=== PATIENT | female | born 1960 | race Caucasian/White ===

== ENCOUNTER 2016-02-23 12:34 | Inpatient (IN) | payer BC ==
[~2016-02-23] VITALS: Ht 170.2 cm; Wt 70.5 kg
[~2016-02-23 12:34] MED LIST: ERTA1INJ IV; THM100 PO; TNR25 PO
[2016-02-23] MEDS ORDERED: SODIUM CHLORIDE 0.9% 1000ML 2,000 ML IV STA (13:11)
[2016-02-23] MEDS ORDERED: LEVAQUIN 750MG / 150ML D5W IV STA (13:11)
[2016-02-23] MEDS ORDERED: PIPERACILLIN/TAZOBACTAM 4.5 GM/100ML D5W IV STA (13:11)
[2016-02-23 13:32] LABS: BASO % 0.2 %; BASO ABS # 0.03 K/uL (0-0.2); EOS % 1.2 %; HEMATOCRIT 24.5 % (37-47); IG% 1.2 %; LYMPH % 7.6 %; LYMPH ABS # 0.91 K/uL (1.2-3.4); MEAN CELL VOLUME 92.5 fL (80-100); MEAN CORPUSCULAR HEMOGLOBIN 33.2 pg (25-34); MEAN CORPUSCULAR HGB CONC 35.9 g/dl (32-36); MEAN PLATELET VOLUME 9.4 fL (7.4-10.4); MONO % 7.2 %; NEUT % 82.6 %; PLATELET COUNT 158 K/uL (130-400); RED BLOOD COUNT 2.65 M/uL (4.2-5.4); WHITE BLOOD COUNT 12.02 K/uL (4.8-10.8)
--- NOTE | 2016-02-23 13:36 | DIAGNOSTIC IMAGING REPORT ---
CHEST ONE VIEW PORTABLE CLINICAL HISTORY: Evaluate Fever/Sepsis COMPARISON STUDY: 02/16/2016 FINDINGS: The cardiac and mediastinal contours remain stable. There is a right-sided PICC catheter which projects over the right axillary vein. There is interstitial thickening and nodular by basilar airspace opacities, likely inflammatory. Clinical and radiographic follow-up is recommended.[ IMPRESSION: 1. Interval development of interstitial thickening and nodular right basal airspace opacities, likely inflammatory. Clinical and radiographic follow-up is recommended 2. Presumed right-sided PICC catheter which appears positioned within the axillary vein Electronically signed by: Robinson Mora M.D. 02/23/2016 1:35 PM
[2016-02-23 13:41] LABS: ALT/SGPT 23 U/L (12-78); BLOOD UREA NITROGEN 7 mg/dl (7-18); BUN/CREATININE RATIO 7.5 (10-20); CALCIUM 9.5 mg/dl (8.5-10.1); CARBON DIOXIDE 21 mmol/L (21-32); CHLORIDE 104 mmol/L (98-107); CREATININE 0.92 mg/dl (0.60-1.20); GLUCOSE 94 mg/dl (70-99); POTASSIUM 4.5 mmol/L (3.5-5.1); SODIUM 135 mmol/L (136-145)
[2016-02-23 13:50] LABS: INR 1.7 (0.9-1.1); PARTIAL THROMBOPLASTIN RATIO 1.2; PROTHROMBIN TIME (PATIENT) 18.1 SECONDS (9.0-12.0)
[2016-02-23 13:55] LABS: COMPLETE YES; TOXIC GRANULATION 1+
[2016-02-23 13:56] LABS: URINE APPEARANCE CLEAR (CLEAR); URINE COLOR DK YELLOW; URINE NITRITE NEG (NEG); URINE PH 6.5 (4.5-7.5); URINE SPECIFIC GRAVITY 1.012 (1.000-1.030); UROBILINOGEN NEG (NEG)
[2016-02-23 13:58] LABS: MANUAL MICROSCOPIC REQUIRED? NO; REVIEW REQ? NO; URINE BILIRUBIN 1+ (NEG)
[2016-02-23 14:00] LABS: ALKALINE PHOSPHATASE 245 U/L (45-117); AST/SGOT 91 U/L (15-37)
[2016-02-23] MEDS ORDERED: ERTAPENEM 1 GM ADDVIAL IV ONE ×2 (14:15→15:00)
[2016-02-23 14:38] LABS: BENZODIAZEPINE, URINE POS (NEG); COCAINE,URINE NEG (NEG); PHENCYCLIDINE, URINE NEG (NEG)
--- NOTE | 2016-02-23 15:59 | EMERGENCY ROOM VISIT NOTE ---
History Report prepared by Ashley: Radha Daily Under the Supervision of: Jaden HusainO. First contact with patient: 13:02 Chief Complaint: LETHARGIC Stated Complaint: LETHARGIC Nursing Triage Summary: discharge yesterday from hospital with picc line, iv ivance at home for uti/sepsis, pt has etoh withdrawel and cirrhosis, jaundice, pt lethargic and confused History of Present Illness The patient is a 56 year old female who presents to the Emergency Room with complaints of worsening lethargy since yesterday. The patient was discharged from the hospital yesterday with a PICC line. She is receiving IV InVance for a UTI/sepsis. She is currently dealing with alcohol withdrawal and cirrhosis. She states that she was brought to the ED by ambulance today. Her significant other called the ambulance because the patient has become more lethargic and confused since being home. She is complaining of a non-productive cough. The patient states that she had "a low potassium at work." She denies headache, back pain, nausea, and vomiting. Source of History: patient, spouse/significant other, nursing staff Onset: yesterday Position: other (global) Quality: other (lethargy) Timing: worsening Associated Symptoms: + cough, No back pain, No headache, No nausea, No vomiting Note: Significant other noted patient to be more confused today. Review of Systems See HPI for pertinent positives & negatives. A total of 10 systems reviewed and were otherwise negative. Past Medical & Surgical Medical Problems: (1) Alcohol abuse (2) Alcohol intoxication (3) Anxiety State Nos (4) Depression (5) Hypertension Nos (6) Sepsis (7) Tobacco Use Disorder Surgical Problems: (1) S/P section Family History No pertinent history stated. Social History Smoking Status: Former Smoker Alcohol Use: heavy Marital Status: single Housing Status: lives with family Occupation Status: employed Current/Historical Medications Scheduled Atenolol (Atenolol), 0.5 TABS PO DAILY Ertapenem Sodium (Invanz), 1 GM IV DAILY Folic Acid (Folvite), 1 MG PO DAILY Thiamine HCl (Vitamin B-1), 100 MG PO DAILY Scheduled PRN Lorazepam (Lorazepam), 1 MG PO TID PRN for Anxiety Allergies Coded Allergies: Iodinated Diagnostic Agents (Unverified Allergy, Unknown, ., 02/23/16) Gabapentin (Verified Adverse Reaction, Intermediate, MOOD CHANGES, ) Physical Exam Vital Signs Date Time Temp Pulse Resp B/P Pulse Ox O2 Delivery O2 Flow Rate FiO2 02/23/16 15:01 37.7 108 23 123/70 93 Nasal Cannula 2.0 02/23/16 13:34 118 35 02/23/16 13:28 114/67 02/23/16 13:04 130 31 96 02/23/16 12:58 105/70 02/23/16 12:44 95 Nasal Cannula 2.0 02/23/16 12:42 141 02/23/16 12:40 39.4 124 15 130/79 90 Room Air 02/23/16 12:38 130/79 Physical Exam CONSTITUTIONAL/VITAL SIGNS: Reviewed / noted above. GENERAL: Ill in appearance. INTEGUMENTARY: Warm, dry, and [place]. HEAD: Normocephalic. EYES: without scleral icterus or trauma. ENT/OROPHARYNX: clear and very dry. LYMPHADENOPATHY/NECK: Is supple without lymphadenopathy or meningismus. RESPIRATORY: Lungs clear and equal. Tachypneic. CARDIOVASCULAR: Tachycardic rate and regular rhythm. GI/ABDOMEN: Soft and nontender. No organomegaly or pulsatile mass. No rebound or guarding. Normal bowel sounds. EXTREMITIES: Warm and well perfused. BACK: No CVA tenderness. NEUROLOGICAL: Intact without focal deficits. PSYCHIATRIC: normal affect. MUSCULOSKELETAL: Normally developed with good muscle tone. Medical Decision & Procedures ER Provider Diagnostic Interpretation: Radiology results as stated below per my review and radiologist interpretation: CHEST ONE VIEW PORTABLE CLINICAL HISTORY: Evaluate Fever/Sepsis COMPARISON STUDY: 02/16/2016 FINDINGS: The cardiac and mediastinal contours remain stable. There is a right-sided PICC catheter which projects over the right axillary vein. There is interstitial thickening and nodular by basilar airspace opacities, likely inflammatory. Clinical and radiographic follow-up is recommended.[ IMPRESSION: 1. Interval development of interstitial thickening and nodular right basal airspace opacities, likely inflammatory. Clinical and radiographic follow-up is recommended 2. Presumed right-sided PICC catheter which appears positioned within the axillary vein Electronically signed by: Robinson Mora M.D. 02/23/2016 1:35 PM Laboratory Results 02/23/16 12:58 Red Blood Count 2.65, Mean Corpuscular Volume 92.5, Mean Corpuscular Hemoglobin 33.2, Mean Corpuscular Hemoglobin Concent 35.9, Mean Platelet Volume 9.4, Neutrophils (%) (Auto) 82.6, Lymphocytes (%) (Auto) 7.6, Monocytes (%) (Auto) 7.2, Eosinophils (%) (Auto) 1.2, Basophils (%) (Auto) 0.2, Neutrophils # (Auto) 9.93, Lymphocytes # (Auto) 0.91, Monocytes # (Auto) 0.87, Eosinophils # (Auto) 0.14, Basophils # (Auto) 0.03 02/23/16 12:58 Test 02/23/16 12:58 02/23/16 13:25 02/23/16 13:35 02/23/16 14:05 White Blood Count 12.02 K/uL (4.8-10.8) Red Blood Count 2.65 M/uL (4.2-5.4) Hemoglobin 8.8 g/dL (12.0-16.0) Hematocrit 24.5 % (37-47) Mean Corpuscular Volume 92.5 fL (80-100) Mean Corpuscular Hemoglobin 33.2 pg (25-34) Mean Corpuscular Hemoglobin Concent 35.9 g/dl (32-36) Platelet Count 158 K/uL (130-400) Mean Platelet Volume 9.4 fL (7.4-10.4) Neutrophils (%) (Auto) 82.6 % Lymphocytes (%) (Auto) 7.6 % Monocytes (%) (Auto) 7.2 % Eosinophils (%) (Auto) 1.2 % Basophils (%) (Auto) 0.2 % Neutrophils # (Auto) 9.93 K/uL (1.4-6.5) Lymphocytes # (Auto) 0.91 K/uL (1.2-3.4) Monocytes # (Auto) 0.87 K/uL (0.11-0.59) Eosinophils # (Auto) 0.14 K/uL (0-0.5) Basophils # (Auto) 0.03 K/uL (0-0.2) RDW Standard Deviation 54.4 fL (36.4-46.3) RDW Coefficient of Variation 16.1 % (11.5-14.5) Immature Granulocyte % (Auto) 1.2 % Immature Granulocyte # (Auto) 0.14 K/uL (0.00-0.02) Toxic Granulation 1+ Prothrombin Time 18.1 SECONDS (9.0-12.0) Prothromb Time International Ratio 1.7 (0.9-1.1) Activated Partial Thromboplast Time 32.0 SECONDS (21.0-31.0) Partial Thromboplastin Ratio 1.2 Anion Gap 10.0 mmol/L (3-11) Est Creatinine Clear Calc Drug Dose 67.6 ml/min Estimated GFR () 81.2 Estimated GFR (Non- 70.1 BUN/Creatinine Ratio 7.5 (10-20) Calcium Level 9.5 mg/dl (8.5-10.1) Total Bilirubin 7.9 mg/dl (0.2-1) Direct Bilirubin 5.7 mg/dl (0-0.2) Aspartate Amino Transf (AST/SGOT) 91 U/L (15-37) Alanine Aminotransferase (ALT/SGPT) 23 U/L (12-78) Alkaline Phosphatase 245 U/L (45-117) Total Creatine Kinase 22 U/L (26-192) Creatine Kinase MB < 0.5 ng/ml (0.5-3.6) Creatine Kinase MB Ratio (0-3.0) Troponin I < 0.015 ng/ml (0-0.045) Total Protein 5.9 gm/dl (6.4-8.2) Albumin 2.5 gm/dl (3.4-5.0) Lipase 771 U/L (73-393) Thyroid Stimulating Hormone (TSH) 1.530 uIu/ml (0.300-4.500) Acetaminophen Level < 2 ug/ml (10-30) Influenza Type A Antigen Neg for Influ A (NEG) Influenza Type B Antigen Neg for Influ B (NEG) Urine Color DK YELLOW Urine Appearance CLEAR (CLEAR) Urine pH 6.5 (4.5-7.5) Urine Specific [place] 1.012 (1.000-1.030) Urine Protein NEG (NEG) Urine Glucose (UA) NEG (NEG) Urine Ketones NEG (NEG) Urine Occult Blood NEG (NEG) Urine Nitrite NEG (NEG) Urine Bilirubin 1+ (NEG) Urine Urobilinogen NEG (NEG) Urine Leukocyte Esterase TRACE (NEG) Urine WBC (Auto) 1-5 /hpf (0-5) Urine RBC (Auto) 0-4 /hpf (0-4) Urine Hyaline Casts (Auto) 1-5 /lpf (0-5) Urine Epithelial Cells (Auto) 10-20 /lpf (0-5) Urine Bacteria (Auto) NEG (NEG) Urine Opiates Screen NEG (NEG) Urine Methadone, Qualitative NEG (NEG) Urine Barbiturates NEG (NEG) Urine Phencyclidine (PCP) Level NEG (NEG) Ur Amphetamine/Methamphetamine NEG (NEG) MDMA (Ecstasy) Screen NEG (NEG) Urine Benzodiazepines Screen POS (NEG) Urine Cocaine Metabolite NEG (NEG) Urine Marijuana (THC) NEG (NEG) Lactic Acid Level 1.1 mmol/L (0.4-2.0) Ammonia 28.0 umol/L (11-32) Ethyl Alcohol mg/dL < 3.0 mg/dl (0-3) Laboratory results as stated above per my review. Medications Administered Medications (Trade) Dose Ordered Sig/Britany Route Start Time Stop Time Status Last Admin Dose Admin Sodium Chloride (Nss 1000ml) 2,000 ml @ 999 mls/hr Q2H1M STAT IV 02/23/16 13:11 02/23/16 15:11 DC 02/23/16 13:42 999 MLS/HR Levofloxacin (Levaquin / D5w) 750 mg NOW STAT IV 02/23/16 13:11 02/23/16 13:16 DC 02/23/16 14:08 750 MG Piperacillin Sod/ Tazobactam Sod (Zosyn Iv) 4.5 gm NOW STAT IV 02/23/16 13:11 02/23/16 13:16 DC 02/23/16 14:08 4.5 GM ECG Indication: weakness Rate (beats per minute): 134 Rhythm: sinus tachycardia Findings: no acute ischemic change, no ectopy ED Course 1304: Previous medical records were reviewed. The patient was evaluated in room B12B. A complete history and physical examination was performed. 1311: Zosyn 4.5 gm IV, Levofloxacin 750 mg IV, NSS 2000 ml @ 999 mls/hr IV 1500: Ertapenem 1 gm IV 1513: I spoke with Rubia Marrufo PA-C. We discussed the patients results and treatment plan. [facility] 1521: I reassessed the patient at this time. She is resting comfortably. I discussed the results and treatment plan with the patient. I answered all pertaining questions that she had. She expressed understanding and verbalized agreement. Medical Decision Differential diagnosis: Etiologies such as sepsis, UTI, pneumonia, metabolic, electrolyte abnormalities , cardiac sources, intracerebral event, toxicologic, neurologic, as well as others were entertained. This is a 56-year-old ill-appearing female who presents to the ED after being discharged yesterday. The patient presents tachycardic with a heart rate of 140. Her fever is 39.4. The patient was discharged with a PICC line yesterday for sepsis from a urinary tract infection. She is to be taking Invanz daily. The patient was brought to the hospital by an old. No one presented with the patient. Her exam findings reveal revealed dry mucous membranes. She was tachycardic and somewhat tachypneic as well. Chest x-ray reveals a right-sided pneumonia. Hemoglobin is at baseline at 8.8. White blood cell count was 12. INR is 1.7 and bilirubin is elevated at 7.9. This is chronic related to chronic liver disease. Troponin is negative. Flu swab was negative. Urine did not show infection. EKG showed a sinus tach at a rate of 134. The patient was told the results. She was started on broad-spectrum antibiotics as noted above. She was given 2 L of normal saline IV. She'll be seen by the hospitalist for further inpatient care and evaluation. Consults Time Called: 1511 Consulting Physician: Rubia Marrufo PA-C Returned Call: 1513 I spoke with Rubia Marrufo PA-C. We discussed the patients results and treatment plan. [facility]. Impression Primary Impression: Pneumonia Additional Impressions: Sepsis, Anemia, Hyperbilirubinemia, Coagulopathy Critical Care I have personally spent greater than 35 minutes of critical care time in the direct management of this patient. This includes bedside care, interpretation of diagnostic studies, and testing, discussion with consultants, patient, and family members, and other required patient management activities. This 35 minutes is in excess of all separately billable procedures. Scribe Attestation The scribe's documentation has been prepared under my direction and personally reviewed by me in its entirety. I confirm that the note above accurately reflects all work, treatment, procedures, and medical decision making performed by me. Departure Information Dispostion Being Evaluated By Hospitalist Referrals Kai Sarmiento D.O. (PCP) Patient Instructions A Signature Page, My [facility]
--- NOTE | 2016-02-23 16:31 | History and Physical ---
History & Physical Date & Time of Service: Feb 23, 2016 at 15:59 Chief Complaint: Lethargic Primary Care Physician: Kai Sarmiento D.ORosalie History of Present Illness Source: patient, clinic records, hospital records Patient seen and examined. 56 year old female with PMHx of alcohol abuse, chronic liver disease, anziety, depression and other problems listed below presents to the ED with AMS/lethargy. History is some what unclear. Patient was discharged from this hospital yesterday after being admitted for alcohol withdrawal and sepsis/UTI. Urine culture grew E.coli ESBL and ID was consulted and patient was discharged on Invanz IV as an outpatient for 14 days. Alcohol withdrawal protocol was followed and after patient was deemed stable she was discharged home yesterday. Per ED physician patient was apparently lethargic and altered this AM and family called EMS to bring her to the ED. Patient reports that she has just been sleeping since discharge. She states that she fell in the bath tub this morning when she tripped over a roll of toilet paper. She denies hitting her head. She reports she has been coughing more than usual. She denies fevers, chills, chest pain, SOB, nausea, vomiting, diarrhea, dysuria , calf pain and edema. She denies that she started drinking alcohol again. In the ED patient is tachycardic and febrile. BP is stable. WBC count is 12K, LFTs have worsened since yesterday.. CXR shows possible pneumonia. Cultures were drawn and patient was started on Levaquin and Zosyn. She will be admitted for further workup and treatment. Past Medical/Surgical History Medical Problems: (1) Alcohol abuse Status: Chronic (2) Alcohol intoxication Status: Resolved (3) Depression Status: Chronic (4) HTN (hypertension) Status: Chronic (5) Tobacco abuse Status: Chronic Surgical Problems: (1) H/O colonoscopy Status: Chronic (2) History of esophagogastroduodenoscopy (EGD) Status: Chronic (3) Hx of tonsillectomy Status: Chronic (4) S/P section Status: Resolved Family History FH: leukemia Hypertension Social History Smoking Status: Former Smoker Alcohol Use: Alcohol abuse - recent abstenince since 02/11 Marital Status: single Occupational Status: employed Multi-Drug Resistant Organisms History of MDRO: No Allergies Coded Allergies: Iodinated Diagnostic Agents (Unverified Allergy, Unknown, ., 02/23/16) Gabapentin (Verified Adverse Reaction, Intermediate, MOOD CHANGES, ) Home Medications Scheduled Atenolol (Atenolol), 0.5 TABS PO DAILY Ertapenem Sodium (Invanz), 1 GM IV DAILY Folic Acid (Folvite), 1 MG PO DAILY Thiamine HCl (Vitamin B-1), 100 MG PO DAILY Scheduled PRN Lorazepam (Lorazepam), 1 MG PO TID PRN for Anxiety Review of Systems See above for pertinent positives & negatives. A total of 10 systems reviewed and were otherwise negative. Physical Exam Vital Signs Date Time Temp Pulse Resp B/P Pulse Ox O2 Delivery O2 Flow Rate FiO2 02/23/16 15:01 37.7 108 23 123/70 93 Nasal Cannula 2.0 02/23/16 13:34 118 35 02/23/16 13:28 114/67 02/23/16 13:04 130 31 96 02/23/16 12:58 105/70 02/23/16 12:44 95 Nasal Cannula 2.0 02/23/16 12:42 141 02/23/16 12:40 39.4 124 15 130/79 90 Room Air 02/23/16 12:38 130/79 General Appearance: + pertinent finding (Chronically ill appearing 56 year old female lying in bed in NAD ) Head: normocephalic, atraumatic Eyes: EOMI, + pertinent finding (scleral icterus ) ENT: hearing grossly normal, pharynx normal Neck: supple, no JVD Respiratory/Chest: chest non-tender, no respiratory distress, no accessory muscle use, + crackles (BL bases ) Cardiovascular: no edema, no gallop, no JVD, no murmur, normal peripheral pulses, + tachycardia (low 100s, regular ) Abdomen/GI: normal bowel sounds, non tender, soft, + distended Back: normal inspection, no muscle spasm Extremities/Musculoskelatal: no calf tenderness, normal capillary refill, normal range of motion Neurologic/Psych: + pertinent finding (Alert, oriented x3, no asterixis, strength and sensation equal and intact in all extremities ) Skin: normal color, warm/dry, no rash Lymphatic: no adenopathy Diagnostics Laboratory Results Results Past 24 Hours Test 02/23/16 12:58 02/23/16 13:25 12/28/16 13:35 02/23/16 14:05 Range/Units White Blood Count 12.02 4.8-10.8 K/uL Red Blood Count 2.65 4.2-5.4 M/uL Hemoglobin 8.8 12.0-16.0 g/dL Hematocrit 24.5 37-47 % Mean Corpuscular Volume 92.5 80-100 fL Mean Corpuscular Hemoglobin 33.2 25-34 pg Mean Corpuscular Hemoglobin Concent 35.9 32-36 g/dl Platelet Count 158 130-400 K/uL Mean Platelet Volume 9.4 7.4-10.4 fL Neutrophils (%) (Auto) 82.6 % Lymphocytes (%) (Auto) 7.6 % Monocytes (%) (Auto) 7.2 % Eosinophils (%) (Auto) 1.2 % Basophils (%) (Auto) 0.2 % Neutrophils # (Auto) 9.93 1.4-6.5 K/uL Lymphocytes # (Auto) 0.91 1.2-3.4 K/uL Monocytes # (Auto) 0.87 0.11-0.59 K/uL Eosinophils # (Auto) 0.14 0-0.5 K/uL Basophils # (Auto) 0.03 0-0.2 K/uL RDW Standard Deviation 54.4 36.4-46.3 fL RDW Coefficient of Variation 16.1 11.5-14.5 % Immature Granulocyte % (Auto) 1.2 % Immature Granulocyte # (Auto) 0.14 0.00-0.02 K/uL Toxic Granulation 1+ Prothrombin Time 18.1 9.0-12.0 SECONDS Prothromb Time International Ratio 1.7 0.9-1.1 Activated Partial Thromboplast Time 32.0 21.0-31.0 SECONDS Partial Thromboplastin Ratio 1.2 Sodium Level 135 136-145 mmol/L Potassium Level 4.5 3.5-5.1 mmol/L Chloride Level 104 98-107 mmol/L Carbon Dioxide Level 21 21-32 mmol/L Anion Gap 10.0 3-11 mmol/L Blood Urea Nitrogen 7 7-18 mg/dl Creatinine 0.92 0.60-1.20 mg/dl Est Creatinine Clear Calc Drug Dose 67.6 ml/min Estimated GFR () 81.2 Estimated GFR (Non- 70.1 BUN/Creatinine Ratio 7.5 10-20 Random Glucose 94 70-99 mg/dl Calcium Level 9.5 8.5-10.1 mg/dl Total Bilirubin 7.9 0.2-1 mg/dl Direct Bilirubin 5.7 0-0.2 mg/dl Aspartate Amino Transf (AST/SGOT) 91 15-37 U/L Alanine Aminotransferase (ALT/SGPT) 23 12-78 U/L Alkaline Phosphatase 245 45-117 U/L Total Creatine Kinase 22 26-192 U/L Creatine Kinase MB < 0.5 0.5-3.6 ng/ml Creatine Kinase MB Ratio 0-3.0 Troponin I < 0.015 0-0.045 ng/ml Total Protein 5.9 6.4-8.2 gm/dl Albumin 2.5 3.4-5.0 gm/dl Lipase 771 73-393 U/L Thyroid Stimulating Hormone (TSH) 1.530 0.300-4.500 uIu/ml Acetaminophen Level < 2 10-30 ug/ml Influenza Type A Antigen Neg for Influ A NEG Influenza Type B Antigen Neg for Influ B NEG Urine Color DK YELLOW Urine Appearance CLEAR CLEAR Urine pH 6.5 4.5-7.5 Urine Specific [place] 1.012 1.000-1.030 Urine Protein NEG NEG Urine Glucose (UA) NEG NEG Urine Ketones NEG NEG Urine Occult Blood NEG NEG Urine Nitrite NEG NEG Urine Bilirubin 1+ NEG Urine Urobilinogen NEG NEG Urine Leukocyte Esterase TRACE NEG Urine WBC (Auto) 1-5 0-5 /hpf Urine RBC (Auto) 0-4 0-4 /hpf Urine Hyaline Casts (Auto) 1-5 0-5 /lpf Urine Epithelial Cells (Auto) 10-20 0-5 /lpf Urine Bacteria (Auto) NEG NEG Urine Opiates Screen NEG NEG Urine Methadone, Qualitative NEG NEG Urine Barbiturates NEG NEG Urine Phencyclidine (PCP) Level NEG NEG Ur Amphetamine/Methamphetamine NEG NEG MDMA (Ecstasy) Screen NEG NEG Urine Benzodiazepines Screen POS NEG Urine Cocaine Metabolite NEG NEG Urine Marijuana (THC) NEG NEG Lactic Acid Level 1.1 0.4-2.0 mmol/L Ammonia 28.0 11-32 umol/L Ethyl Alcohol mg/dL < 3.0 0-3 mg/dl Microbiology Results 12/28/16 Blood Culture, Received Pending 02/23/16 Blood Culture, Received Pending 02/23/16 Urine Culture, Received Pending Diagnostic Radiology CXR Per radiologist read: IMPRESSION: 1. Interval development of interstitial thickening and nodular right basal airspace opacities, likely inflammatory. Clinical and radiographic follow-up is recommended 2. Presumed right-sided PICC catheter which appears positioned within the axillary vein EKG Sinus Tachycardia 134 BPM, QTc 409 Impression Assessment and Plan 56 year old female discharged yesterday after treatment for sepsis secondary to UTI and alcohol withdrawal presents to the ED with altered mental status SEPSIS -Admit to tele -Presents with: tachycardia, leukocytosis, fever, BP stable -Likely source : CXR: shows possible pneumonia, ? aspiration pneumonia -Blood cultures, sputum cultures pending -Broad spectrum coverage with Levaquin and Zosyn -ID consulted for further recommendations -keep npo -Repeat CXR in AM -IVF hydration -CBC, PRP, Mg in AM ENCEPHALOPATHY -Metabolic Versus Hepatic -Known severe liver disease, also presenting with sepsis -Reports fall CT head, C-spine to r/o intracranial abnormalities -Ammonia level 28 -LFTs slightly worse than yesterday -will keep npo -IVF hydration URINARY TRACT INFECTION -urine grew E.coli ESBL -ID was consulted -Patient on 14 day course of Invanz, continue -repeat culture drawn ALCOHOL ABUSE -Alcohol level normal, denies alcohol use since between discharge yesterday and arrival today -IV thiamine, Folate -Continue Ativan -Monitor in tele for withdrawal symptoms CHRONIC LIVER DISEASE/CIRRHOSIS -Alcoholic liver disease -MELD score is 19 with Maddrey score of 25 -LFTs slightly worse than yesterday Total Bili 7.9, Direct Bili 5.7, AST 91, ALT 23, Alk Phos 245 -GI consult placed, input appreciated ANEMIA/THROMBOCYTOPENIA/COAGULOPATHY -Hgb stable at 8.8 -Platelet count improved to 158 today -INR 1.7 -likely related to liver disease/alcohol abuse -no signs of active bleeding -Avoid anticoagulation/NSAIDs -follow coags, CBC ELEVATED LIPASE -CT on previous admission was unchanged from previous -Lipase 700 today, was 1600 yesterday -was evaluated by GI yesterday and d/t lack of symptoms and alcohol abuse no intervention was recommended -repeat in AM CODE STATUS: FULL CODE DVT PROPHYLAXIS: SCDs RE: anemia/thrombocytopenia DISPO:In my clinical judgment this beneficiary meets acute admission criteria, established by [facility], that includes being hospitalized through two midnights. Patient seen in collaboration with Dr. Ramos ATTENDING NOTE : pt seen and examined , 56 yo F hx of alcoholic cirrhosis , recent admission with sepsis , ESBL UTI discharged home yesterday with IV Invanz pt apparent had a fall at home with worsening of confusion Cxray shows possible pneumonia ,concern for aspiration P/E: gen : chronically ill appearing female, lethargic HEENT; deeply icteric sclera , dry oral mucosa lungs: coarse breath sound with basilar rales abdomen ; + ascites Ext ; no rash neuro; confused A/P : Sepsis : due to aspiration pneumonia already on treatment for ESBL E .coli sepsis with gram negative bacteremia admission to tele IV abx -added Levaquin /Zosyn for pneumonia follow blood culture ID eval requested repeat Cxray in AM Confusion /metabolic encephalopathy : due to sepsis has underlying advanced liver disease hyper bilirubinemia -leading to hepatic encephalopathy ammonia 28 CT head negative for acute change neuro checks GI eval requested Full code Level of Care Telemetry Resuscitation Status FULL RESUSCITATION VTE Prophylaxis VTE Risk Assessment Done? Y/N: Yes Risk Level: Moderate Given or contraindicated: T.E.D. Stockings, SCD's
[2016-02-23] MEDS ORDERED: LEVOFLOXACIN / D5W 750 MG in PREMIXED IN D5W 100 ML IV SCH (16:45)
[2016-02-23] MEDS ORDERED: SODIUM CHLORIDE 0.9% 1000ML 1,000 ML IV SCH (16:45)
[2016-02-23 17:13] VITALS: BP 115/67; PULSE 98; TEMP 37.7; O2SAT 98; Ht 170.2 cm; Wt 70.5 kg
[2016-02-23] MEDS ORDERED: PIPERACILL/TAZOBAC CONSULT ACTIVE PRN (18:30)
[2016-02-23] MEDS ORDERED: LORAZEPAM INJ 1 MG in SYRINGE 0.5 ML IV PRN (18:30)
[2016-02-23] MEDS: PIPERACILL/TAZOBAC IV 3.375 GM in DEXTROSE 5% 100ML 100 ML IV SCH (19:24)
[2016-02-23 20:01] VITALS: BP 112/65; PULSE 97; TEMP 37.6; O2SAT 98
[2016-02-23 20:20] VITALS: O2SAT 98
--- NOTE | 2016-02-23 20:55 | DIAGNOSTIC IMAGING REPORT ---
HEAD CT NONCONTRAST CT DOSE: 954.10 mGy.cm HISTORY: Trauma fall, AMS TECHNIQUE: Multiaxial CT images of the head were performed without the use of intravenous contrast. Comparison: 02/16/2016 Findings: Small mucous retention cyst base left maxillary sinus. Sinuses otherwise are clear. The calvarium and skull base are intact. The ventricles and sulci are within normal limits. There is no mass, hematoma, midline shift, or acute infarct. Mild chronic small vessel change of aging. Impression: No acute intracranial abnormality. No change from the prior study. Electronically signed by: Ajay Randall M.D. 02/23/2016 8:54 PM
--- NOTE | 2016-02-23 20:59 | DIAGNOSTIC IMAGING REPORT ---
CERVICAL SPINE CT CT DOSE: HISTORY: Trauma Fall TECHNIQUE: Multiaxial CT images of the cervical spine were performed and reformatted in the sagittal and coronal plane without the use of contrast. COMPARISON: None. FINDINGS: No fractures. No subluxation. Prevertebral soft tissues and the C1-C2 interval are intact. No pneumothorax. Moderate degenerative intervertebral this change C5-C6. Mild straightening of the normal cervical curvature. IMPRESSION: No fractures within the cervical spine. Mild degenerative change. Electronically signed by: Ajay Randall M.D. 02/23/2016 8:58 PM
[2016-02-23] MEDS: LORAZEPAM 2 MG/ML 1 ML VIAL IV PRN (22:55)
[2016-02-23 23:30] VITALS: BP 140/61; PULSE 116; TEMP 38; O2SAT 94
[2016-02-24] VITALS (10 sets, daily range): BP systolic 97–124; BP diastolic 51–65; PULSE 68–134; TEMP 36.6–38.8; O2SAT 89–97
[2016-02-24] MEDS ORDERED: ACETAMINOPHEN 325 MG TAB ONE (02:22)
[2016-02-24 03:14] LABS: ALLEN TEST POS (POS); ARTERIAL BLD GAS O2 SATURATION 91.9 % (90-95); ARTERIAL BLOOD GAS BASE EXCESS -2.8 mEq/L (-9-1.8); ARTERIAL BLOOD GAS HCO3 20 mmol/L (19-24); ARTERIAL BLOOD GAS PO2 62 mmHg (80-95); ARTERIAL BLOOD GAS pH 7.51 (7.35-7.45); O2 ADMINISTRATION 3 L O2
[2016-02-24 03:21] LABS: HEMATOCRIT 22.5 % (37-47); MEAN CELL VOLUME 91.5 fL (80-100); MEAN CORPUSCULAR HEMOGLOBIN 32.9 pg (25-34); MEAN PLATELET VOLUME 9.5 fL (7.4-10.4); PLATELET COUNT 127 K/uL (130-400); RED BLOOD COUNT 2.46 M/uL (4.2-5.4)
[2016-02-24 03:24] LABS: INR 1.8 (0.9-1.1); PROTHROMBIN TIME (PATIENT) 19.8 SECONDS (9.0-12.0)
[2016-02-24 03:30] LABS: BUN/CREATININE RATIO 8.2 (10-20); CALCIUM 8.3 mg/dl (8.5-10.1); CREATININE 0.94 mg/dl (0.60-1.20); MAGNESIUM 1.3 mg/dl (1.8-2.4); POTASSIUM 4.2 mmol/L (3.5-5.1)
[2016-02-24] MEDS ORDERED: NURSING VERBAL MED ORDER ONE ×2 (03:30→04:00)
[2016-02-24] MEDS ORDERED: FUROSEMIDE 40 MG/4 ML VIAL ONE (03:31)
[2016-02-24] MEDS ORDERED: METHYLPREDNISOLONE 20 MG in SYRINGE 0 ML IV STA (04:04)
[2016-02-24] MEDS ORDERED: LEVALBUTEROL 1.25MG/3ML NEB INH STA (04:40)
[2016-02-24] MEDS: MAGNESIUM SULFATE 1GM / D5W 1 GM in PREMIXED IN D5W 100 ML IV SCH ×3 (04:41→06:35)
[2016-02-24] MEDS: PIPERACILL/TAZOBAC IV 3.375 GM in DEXTROSE 5% 100ML 100 ML IV SCH (05:01)
[2016-02-24] MEDS: LEVALBUTEROL 1.25MG/3ML NEB INH SCH ×3 (07:20→19:32)
--- NOTE | 2016-02-24 08:54 | DIAGNOSTIC IMAGING REPORT ---
CHEST ONE VIEW PORTABLE CLINICAL HISTORY: pneumonia pneumonitis COMPARISON STUDY: 02/24/2016 FINDINGS: Focal bibasilar parenchymal infiltrates. Trace pleural fluid both lung bases. Underlying component of pulmonary vascular congestion. IMPRESSION: Small parenchymal infiltrate both lung bases combined with small bilateral pleural effusions. Underlying component of pulmonary vascular congestion Electronically signed by: Ajay Randall M.D. 02/24/2016 8:53 AM
--- NOTE | 2016-02-24 09:00 | DIAGNOSTIC IMAGING REPORT ---
SINGLE VIEW CHEST CLINICAL HISTORY: Wheezing. FINDINGS: An AP, portable, upright chest radiograph is compared to study dated 02/23/2016. The examination is significant degraded by portable technique, motion artifact, and patient rotation. The heart appears mildly enlarged and there is atherosclerotic calcification of the thoracic aorta. Bibasilar airspace opacities are identified.. No pneumothorax is seen. The skeletal structures are osteopenic. The bony thorax is grossly intact. IMPRESSION: 1. Severely motion degraded examination. 2. There are bibasilar airspace opacities. This could represent atelectasis versus bibasilar pneumonia. Pleural effusions are not excluded. A repeat examination with improved technique is recommended with the patient is clinically able. Electronically signed by: Michael Rubio M.D. 02/24/2016 8:58 AM
[2016-02-24] MEDS: THIAMINE HCL INJ 100 MG in SYRINGE 9 ML IV SCH (09:32)
[2016-02-24] MEDS: FoLIC ACID INJ 1 MG in SYRINGE 9.8 ML IV SCH (09:32)
--- NOTE | 2016-02-24 11:14 | Medical Consult ---
Consultation Date of Consultation: Feb 24, 2016. Attending Physician: Mayuri Ramos M.D. Reason for Consultation: Sepsis History of Present Illness Patient is a 56 yo female with history of alcohol abuse, chronic liver disease, anxiety & depression, and most recently ESBL producing E. Coli UTI. She was discharged multiple days ago with IV ertapenem at home. She states that she was "unable" to do this at home because she suffered a fall in her bathtub and "broke her back". She was noted to be lethargic and have altered mental status at home following her fall, so her family called EMS and she was evaluated in the ED. Since admission, the patient states that she has been coughing more than normal but has not had any SOB, diarrhea, nausea, or vomiting. On admission , the patient's WBC count was 12.02. Her lipase was 771 but this is down from previous admission. Alk phos was 245, and Bilirubin was severely elevated. Chest X-ray on admission showed right sided PICC line, and development of interstitial thickening and nodular airspace opacity of the right lower lung. She was started on IV Ertapenem, Levaquin, and Zosyn on admission. The patient' s previous records were reviewed and it was also noted that she had a positive C. Diff toxin on 02/20/15. 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 She is currently on contact precautions. Past Medical/Surgical History Medical Problems: (1) Anemia Status: Acute (2) Bleeding from the nose Status: Acute (3) Coagulopathy Status: Acute (4) Confusion Status: Acute (5) Elevated LFTs Status: Acute (6) Hyperbilirubinemia Status: Acute (7) Hypokalemia Status: Acute (8) Hyponatremia Status: Acute (9) Jaundice Status: Acute (10) Pancreatitis Status: Acute (11) Pneumonia Status: Acute Medical Problems: (1) Alcohol abuse (2) Alcohol intoxication (3) Anxiety State Nos (4) Depression (5) Encephalopathy (6) HTN (hypertension) (7) Hypertension Nos (8) Sepsis (9) Tobacco abuse (10) Tobacco Use Disorder Surgical Problems: (1) H/O colonoscopy (2) History of esophagogastroduodenoscopy (EGD) (3) Hx of tonsillectomy (4) S/P section Family History FH: leukemia Hypertension Noncontributory Social History Smoking Status: Former Smoker Alcohol Use: Alcohol abuse - recent abstenince since 02/11 Marital Status: single Housing Status: lives with family Occupation Status: employed Allergies Coded Allergies: Iodinated Diagnostic Agents (Unverified Allergy, Unknown, ., 02/23/16) Gabapentin (Verified Adverse Reaction, Intermediate, MOOD CHANGES, ) Home Medications Reported Home Medications Medications Dose Route/Sig Max Daily Dose Days Date Category Atenolol 25 Mg Tab 0.5 Tabs PO DAILY 30 02/22/16 Rx Invanz (Ertapenem Sodium) 1 Gm Inj 1 Gm IV DAILY 10 02/22/16 Rx Vitamin B-1 (Thiamine HCl) 100 Mg Tab 100 Mg PO DAILY 30 02/22/16 Rx Lorazepam 1 Mg Tab 1 Mg PO TID PRN 02/16/16 Reported Folvite (Folic Acid) 1 Mg Tab 1 Mg PO DAILY 07/14/14 Reported Current Inpatient Medications Current Inpatient Medications Medications (Trade) Dose Ordered Sig/Britany Route Start Time Stop Time Status Last Admin Dose Admin Ertapenem 1 gm/ Sodium Chloride 50 ml @ 120 mls/hr Q24H IV 02/24/16 16:00 03/04/16 15:59 Piperacillin Sod/ Tazobactam Sod/ Dextrose (Zosyn Iv/D5 100ml) 115 ml @ 28.75 mls/ hr Q8H IV 02/23/16 20:00 03/04/16 19:59 02/24/16 05:01 28.75 MLS/HR Lorazepam 1 mg 1 mg Q4 PRN IV 02/23/16 16:45 03/24/16 16:44 02/23/16 22:55 1 MG Folic Acid 1 mg/ Syringe 10 ml @ 5 mls/min QAM IV 02/24/16 09:00 03/25/16 08:59 02/24/16 09:32 5 MLS/MIN Thiamine HCl 100 mg/Syringe 10 ml @ 2 mls/min QAM IV 02/24/16 09:00 03/25/16 08:59 02/24/16 09:32 2 MLS/MIN Lorazepam 1 mg/ Syringe 1 ml @ 1 mls/min Q4H PRN IV 02/23/16 18:30 1/27/17 18:29 Levofloxacin/Prmx (Levaquin / D5w/ Premixed D5W) 150 ml @ 100 mls/hr Q24H IV 02/24/16 14:00 03/04/16 13:59 Piperacillin Sod/ Tazobactam Sod (Consult) 1 ea UD PRN N/A 02/23/16 18:30 03/24/16 18:29 Acetaminophen (Tylenol Tab) 325 mg Q6H PRN PO 02/24/16 04:15 03/25/16 04:14 Levalbuterol (Xopenex 1.25MG/ 3ML Neb) 1.25 mg Q6R INH 02/24/16 09:00 03/25/16 08:59 Review of Systems Constitutional: + fatigue, + sweats (at night), No chills Eyes: No worsening of vision ENT: No hearing loss Respiratory: + cough, No shortness of breath Cardiovascular: No chest pain Abdomen: No diarrhea, No nausea, No pain, No vomiting Musculoskeletal: No joint pain, No swelling Genitourinary - Female: + urinary frequency Integumentary: No itch, No rash Physical Exam Date Time Temp Pulse Resp B/P Pulse Ox O2 Delivery O2 Flow Rate FiO2 02/24/16 09:07 88 94 02/24/16 08:00 Room Air 02/24/16 06:09 37.1 02/24/16 05:49 103 18 89 Room Air 02/24/16 04:10 Nasal Cannula 2.0 02/24/16 04:02 38.8 134 26 111/65 96 Nasal Cannula 2.0 02/24/16 00:20 94 Nasal Cannula 2.0 02/23/16 23:30 38.0 116 30 140/61 94 Nasal Cannula 3.0 02/23/16 20:20 98 Nasal Cannula 2.0 02/23/16 20:01 37.6 97 18 112/65 98 Room Air 02/23/16 17:13 37.7 98 16 115/67 98 Nasal Cannula 3.0 02/23/16 17:13 37.7 98 16 115/67 98 Nasal Cannula 3.0 02/23/16 16:55 103 25 105/51 95 02/23/16 16:30 105 25 105/51 97 Nasal Cannula 2.0 02/23/16 15:01 37.7 108 23 123/70 93 Nasal Cannula 2.0 02/23/16 13:34 118 35 02/23/16 13:28 114/67 02/23/16 13:04 130 31 96 02/23/16 12:58 105/70 02/23/16 12:44 95 Nasal Cannula 2.0 02/23/16 12:42 141 02/23/16 12:40 39.4 124 15 130/79 90 Room Air 02/23/16 12:38 130/79 General Appearance: WD/WN, no apparent distress Head: normocephalic, atraumatic Eyes: + pertinent finding (icterus) ENT: hearing grossly normal Neck: supple, trachea midline Respiratory/Chest: chest non-tender, no respiratory distress, no accessory muscle use, + crackles (bilateral bases- mild) Cardiovascular: + tachycardia Abdomen/GI: normal bowel sounds, non tender, soft Back: normal inspection Extremities/Musculoskelatal: no pedal edema, normal range of motion Neurologic/Psych: alert, normal mood/affect Skin: normal color, warm/dry, no rash Laboratory Results CHEST ONE VIEW PORTABLE CLINICAL HISTORY: Evaluate Fever/Sepsis COMPARISON STUDY: 02/16/2016 FINDINGS: The cardiac and mediastinal contours remain stable. There is a right-sided PICC catheter which projects over the right axillary vein. There is interstitial thickening and nodular by basilar airspace opacities, likely inflammatory. Clinical and radiographic follow-up is recommended.[ IMPRESSION: 1. Interval development of interstitial thickening and nodular right basal airspace opacities, likely inflammatory. Clinical and radiographic follow-up is recommended 2. Presumed right-sided PICC catheter which appears positioned within the axillary vein Item Value Date Time Blood Culture Received 02/23/16 1405 Blood Pending Urine Culture Received 02/23/16 1335 Urine,Catheterized Pending Blood Culture Received 02/23/16 1258 Blood Pending Last 24 Hours Test 02/23/16 12:58 02/23/16 13:25 02/23/16 13:35 02/23/16 14:05 White Blood Count 12.02 K/uL Red Blood Count 2.65 M/uL Hemoglobin 8.8 g/dL Hematocrit 24.5 % Mean Corpuscular Volume 92.5 fL Mean Corpuscular Hemoglobin 33.2 pg Mean Corpuscular Hemoglobin Concent 35.9 g/dl Platelet Count 158 K/uL Mean Platelet Volume 9.4 fL Neutrophils (%) (Auto) 82.6 % Lymphocytes (%) (Auto) 7.6 % Monocytes (%) (Auto) 7.2 % Eosinophils (%) (Auto) 1.2 % Basophils (%) (Auto) 0.2 % Neutrophils # (Auto) 9.93 K/uL Lymphocytes # (Auto) 0.91 K/uL Monocytes # (Auto) 0.87 K/uL Eosinophils # (Auto) 0.14 K/uL Basophils # (Auto) 0.03 K/uL RDW Standard Deviation 54.4 fL RDW Coefficient of Variation 16.1 % Immature Granulocyte % (Auto) 1.2 % Immature Granulocyte # (Auto) 0.14 K/uL Toxic Granulation 1+ Prothrombin Time 18.1 SECONDS Prothromb Time International Ratio 1.7 Activated Partial Thromboplast Time 32.0 SECONDS Partial Thromboplastin Ratio 1.2 Sodium Level 135 mmol/L Potassium Level 4.5 mmol/L Chloride Level 104 mmol/L Carbon Dioxide Level 21 mmol/L Anion Gap 10.0 mmol/L Blood Urea Nitrogen 7 mg/dl Creatinine 0.92 mg/dl Est Creatinine Clear Calc Drug Dose 67.6 ml/min Estimated GFR () 81.2 Estimated GFR (Non- 70.1 BUN/Creatinine Ratio 7.5 Random Glucose 94 mg/dl Calcium Level 9.5 mg/dl Total Bilirubin 7.9 mg/dl Direct Bilirubin 5.7 mg/dl Aspartate Amino Transf (AST/SGOT) 91 U/L Alanine Aminotransferase (ALT/SGPT) 23 U/L Alkaline Phosphatase 245 U/L Total Creatine Kinase 22 U/L Creatine Kinase MB < 0.5 ng/ml Creatine Kinase MB Ratio Troponin I < 0.015 ng/ml Total Protein 5.9 gm/dl Albumin 2.5 gm/dl Lipase 771 U/L Thyroid Stimulating Hormone (TSH) 1.530 uIu/ml Acetaminophen Level < 2 ug/ml Influenza Type A Antigen Neg for Influ A Influenza Type B Antigen Neg for Influ B Urine Color DK YELLOW Urine Appearance CLEAR Urine pH 6.5 Urine Specific [place] 1.012 Urine Protein NEG Urine Glucose (UA) NEG Urine Ketones NEG Urine Occult Blood NEG Urine Nitrite NEG Urine Bilirubin 1+ Urine Urobilinogen NEG Urine Leukocyte Esterase TRACE Urine WBC (Auto) 1-5 /hpf Urine RBC (Auto) 0-4 /hpf Urine Hyaline Casts (Auto) 1-5 /lpf Urine Epithelial Cells (Auto) 10-20 /lpf Urine Bacteria (Auto) NEG Urine Opiates Screen NEG Urine Methadone, Qualitative NEG Urine Barbiturates NEG Urine Phencyclidine (PCP) Level NEG Ur Amphetamine/Methamphetamine NEG MDMA (Ecstasy) Screen NEG Urine Benzodiazepines Screen POS Urine Cocaine Metabolite NEG Urine Marijuana (THC) NEG Lactic Acid Level 1.1 mmol/L Ammonia 28.0 umol/L Ethyl Alcohol mg/dL < 3.0 mg/dl Test 02/24/16 02:42 White Blood Count 9.00 K/uL Red Blood Count 2.46 M/uL Hemoglobin 8.1 g/dL Hematocrit 22.5 % Mean Corpuscular Volume 91.5 fL Mean Corpuscular Hemoglobin 32.9 pg Mean Corpuscular Hemoglobin Concent 36.0 g/dl RDW Standard Deviation 53.0 fL RDW Coefficient of Variation 15.9 % Platelet Count 127 K/uL Mean Platelet Volume 9.5 fL Prothrombin Time 19.8 SECONDS Prothromb Time International Ratio 1.8 Arterial Blood pH 7.51 Arterial Blood Partial Pressure CO2 25 mmHg Arterial Blood Partial Pressure O2 62 mmHg Arterial Blood HCO3 20 mmol/L Arterial Blood Oxygen Saturation 91.9 % Arterial Blood Base Excess -2.8 mEq/L Arterial Blood Gas Delivery 3 L O2 Ezra Test POS Sodium Level 135 mmol/L Potassium Level 4.2 mmol/L Chloride Level 103 mmol/L Carbon Dioxide Level 20 mmol/L Anion Gap 12.0 mmol/L Blood Urea Nitrogen 8 mg/dl Creatinine 0.94 mg/dl Est Creatinine Clear Calc Drug Dose 65.8 ml/min Estimated GFR () 79.2 Estimated GFR (Non- 68.3 BUN/Creatinine Ratio 8.2 Random Glucose 85 mg/dl Calcium Level 8.3 mg/dl Magnesium Level 1.3 mg/dl Lipase 492 U/L Assessment & Plan Patient with ESBL UTI (previous admission- still on treatment), possible aspiration pneumonia, positive C. Diff toxin on 02/20, and probable alcoholic cirrhosis/hepatitis. She is currently on IV Ertapenem, Zosyn, and Levaquin- will D/C all and change to IV Primaxin to cover for UTI and possible aspiration. Patient is currently not having any diarrhea, so will hold C. Diff treatment for now. If she begins to have diarrhea, would like to start on PO Vancomycin. Blood and urine cultures pending. Otherwise, we will continue to follow. Case reviewed and agree with above assessment.
[2016-02-24] MEDS ORDERED: IMIPENEM/CILASTATIN CONSULT ACTIVE PRN (11:30)
[2016-02-24] MEDS ORDERED: LEVOFLOXACIN 750MG / D5W IV SCH (14:00)
[2016-02-24] MEDS: IMIPENEM/CILASTATIN IV 500 MG in DEXTROSE 5% 100ML 100 ML IV SCH ×2 (14:44→21:40)
--- NOTE | 2016-02-24 15:50 | Gastroenterology Progress Note ---
Progress Note Date of Service: Feb 24, 2016 Subjective Pt evaluation today including: conversation w/ patient, physical exam, chart review, lab review, review of studies, review of inpatient medication list Today, GI is consulted for cirrhosis. Please see full consult by Dr. Barajas and Sabina Harris on . At that time, impression: 1. Lipase elevation not clinically significant. 2. Alcoholic hepatitis, with low DF, steroids not indicated. 3. ETOH cirrhosis w/o evidence of decompensation: no evidence of GI bleeding, significant ascites/edema and confusion thought secondary to alcohol withdraw. Ms. Valderrama is a 56 yr old female with ETOH cirrhosis admitted last week for alcohol withdraw and returned yesterday due to weakness. She tells me that her most recent drink was 6 days ago and that she plans to stop sighting that "if I don't, I'll ." She denies any hematemesis, melena, hematochezia, peripheral edema. Though she has some ascites, she does not feel that she has had an increasing abdominal girth. C-diff positive during most recent admission, no treated. Pt denies diarrhea or states, maybe one loose stool/day. Denies abdominal pain. Review of Systems Constitutional: + problem reported (confusion and weakness), No fever Respiratory: No cough Cardiac: No chest pain Abdomen: No GI bleeding, No constipation, No diarrhea, No nausea, No pain, No vomiting Female : No dysuria Neuro: No memory loss Psych: No depression symptoms Endo: No fatigue Skin: No rash Medications Current Inpatient Medications Medications (Trade) Dose Ordered Sig/Britany Route Start Time Stop Time Status Last Admin Dose Admin Lorazepam 1 mg 1 mg Q4 PRN IV 02/23/16 16:45 03/24/16 16:44 02/23/16 22:55 1 MG Folic Acid 1 mg/ Syringe 10 ml @ 5 mls/min QAM IV 02/24/16 09:00 03/25/16 08:59 02/24/16 09:32 5 MLS/MIN Thiamine HCl 100 mg/Syringe 10 ml @ 2 mls/min QAM IV 02/24/16 09:00 03/25/16 08:59 02/24/16 09:32 2 MLS/MIN Lorazepam/Syringe (Ativan Inj/ Syringe) 1 ml @ 1 mls/min Q4H PRN IV 02/23/16 18:30 03/24/16 18:29 Acetaminophen (Tylenol Tab) 325 mg Q6H PRN PO 02/24/16 04:15 03/25/16 04:14 Levalbuterol 1.25 mg 1.25 mg Q6R INH 02/24/16 09:00 03/25/16 08:59 02/24/16 14:15 1.25 MG Imipenem/ Cilastatin Sodium/ Dextrose (Primaxin Iv/D5 100ml) 110 ml @ 100 mls/hr Q8H IV 02/24/16 14:00 03/05/16 13:59 02/24/16 14:44 100 MLS/HR Imipenem/ Cilastatin Sodium (Consult) 1 ea UD PRN N/A 02/24/16 11:30 03/25/16 11:29 Objective Vital Signs Date Time Temp Pulse Resp B/P Pulse Ox O2 Delivery O2 Flow Rate FiO2 02/24/16 14:15 81 18 91 Room Air 02/24/16 12:00 Room Air 02/24/16 11:29 36.8 68 18 97/58 97 02/24/16 09:07 88 94 02/24/16 08:00 Room Air 02/24/16 06:09 37.1 02/24/16 05:49 103 18 89 Room Air 02/24/16 04:10 Nasal Cannula 2.0 02/24/16 04:02 38.8 134 26 111/65 96 Nasal Cannula 2.0 02/24/16 00:20 94 Nasal Cannula 2.0 02/23/16 23:30 38.0 116 30 140/61 94 Nasal Cannula 3.0 02/23/16 20:20 98 Nasal Cannula 2.0 02/23/16 20:01 37.6 97 18 112/65 98 Room Air 02/23/16 17:13 37.7 98 16 115/67 98 Nasal Cannula 3.0 02/23/16 17:13 37.7 98 16 115/67 98 Nasal Cannula 3.0 02/23/16 16:55 103 25 105/51 95 02/23/16 16:30 105 25 105/51 97 Nasal Cannula 2.0 Physical Exam General Appearance: no apparent distress, + thin (wasting of extremities) Neck: no JVD Respiratory/Chest: lungs clear Cardiovascular: regular rate, rhythm, no JVD, no murmur Abdomen: non tender, soft, + hepatomegaly (mildly enlarged, non tender), + pertinent finding (moderate ascites) Extremities: normal inspection Neurologic/Psych: alert, normal mood/affect, oriented x 3 Skin: no jaundice, + pertinent finding (spider angiomoa on the chest) Laboratory Results Last 24 Hours Test 02/24/16 02:42 White Blood Count 9.00 K/uL Red Blood Count 2.46 M/uL Hemoglobin 8.1 g/dL Hematocrit 22.5 % Mean Corpuscular Volume 91.5 fL Mean Corpuscular Hemoglobin 32.9 pg Mean Corpuscular Hemoglobin Concent 36.0 g/dl RDW Standard Deviation 53.0 fL RDW Coefficient of Variation 15.9 % Platelet Count 127 K/uL Mean Platelet Volume 9.5 fL Prothrombin Time 19.8 SECONDS Prothromb Time International Ratio 1.8 Arterial Blood pH 7.51 Arterial Blood Partial Pressure CO2 25 mmHg Arterial Blood Partial Pressure O2 62 mmHg Arterial Blood HCO3 20 mmol/L Arterial Blood Oxygen Saturation 91.9 % Arterial Blood Base Excess -2.8 mEq/L Arterial Blood Gas Delivery 3 L O2 Ezra Test POS Sodium Level 135 mmol/L Potassium Level 4.2 mmol/L Chloride Level 103 mmol/L Carbon Dioxide Level 20 mmol/L Anion Gap 12.0 mmol/L Blood Urea Nitrogen 8 mg/dl Creatinine 0.94 mg/dl Est Creatinine Clear Calc Drug Dose 65.8 ml/min Estimated GFR () 79.2 Estimated GFR (Non- 68.3 BUN/Creatinine Ratio 8.2 Random Glucose 85 mg/dl Calcium Level 8.3 mg/dl Magnesium Level 1.3 mg/dl Lipase 492 U/L Assessment and Plan is a 56 yr old female with ETOH cirrhosis, continuing to drink alcohol ( abstaining x 6 days). As well as the ETOH, she has alcoholic hepatitis. DF today is 36.6. No evidence of confusion, GI bleeding or fluid overload. Plan: Now because DF >32, would consider prednisolone 40mg daily as indicated by the Maddrey's DF guidelines. However, this is contraindicated with infection/recent UTI sepsis and C_diff. For now, would offer the same advise as given on 02/16: 1. Alcohol abstention. 2. OP GI f/u for cirrhosis. Once abstinent for a period then would consider EGD for screening for varices, possible low dose diuretics for ascites, liver imaging Q 6 months and would revisit possible use of prednisolone. 3. Also discussed C-diff with ID and would defer to their recommendations for watchful waiting and their management of the C-diff issue. GI will sign off. Please notify us if significantly increasing ascites, if evidence of GI bleeding, or confusion.
[2016-02-24] MEDS ORDERED: ERTAPENEM IV 1 GM in SODIUM CHLOR 0.9% AD-VAN 50ML 50 ML IV SCH (16:00)
[2016-02-24] MEDS ORDERED: NURSING DECISION MEDICATION ORDER SCH (20:45)
--- NOTE | 2016-02-24 23:07 | Progress Note ---
Internal Med Progress Note Date of Service: Feb 24, 2016. Provider Documentation: SUBJECTIVE: remains lethargic wakes up to voice , able to answer questions OBJECTIVE: Vital Signs-as noted below Exam: General-chronically ill appearing Eyes-deeply icteric sclera ENT-dry oral mucosa Lungs-+ rales at base Heart-regular S1/S2 Abdomen-+ ascites Extremities-no rash Neuro-no focal neurological deficit Lab data as noted below. ASSESSMENT & PLAN: SEPSIS -Presents with: tachycardia, leukocytosis, fever, BP stable -Likely source : CXR: shows possible pneumonia, concern for aspiration pneumonia -Blood cultures, sputum cultures ordered -ID consulted for further recommendations -appreciate input -Abx changed to Primaxin for coverage of both pneumonia and ESBL - -Repeat CXR in AM METABOLIC ENCEPHALOPATHY -due to sepsis with worsening of liver function -hepatic encephalopathy -Known severe liver disease, also presenting with sepsis -l CT head, C-spine to r/o intracranial abnormalities -Ammonia level 28 -GI eval requested for worsening of liver function -recommends to continue supportive management URINARY TRACT INFECTION-ESBL E.COLI -urine grew E.coli ESBL -ID was consulted -Patient was discharged on 14 day course of Invanz, continue -Abx changed to Primaxin( will cover both UTI and pneumonia ) repeat urine culture ordered ALCOHOL ABUSE -Alcohol level normal, denies alcohol use since between discharge yesterday and arrival today -IV thiamine, Folate -Continue Ativan -Monitor in tele for withdrawal symptoms CHRONIC LIVER DISEASE/CIRRHOSIS -Alcoholic liver disease -MELD score is 19 with Maddrey score of 25 -LFTs worse Total Bili 7.9, Direct Bili 5.7, AST 91, ALT 23, Alk Phos 245 -due to sepsis -GI consult placed, input appreciated -recommend supportive management treatment of underlying sepsis /infection pt needs absolute abstinence form ETOH ANEMIA/THROMBOCYTOPENIA/COAGULOPATHY -Hgb stable at 8.8 -, INR 1.7 -likely related to liver disease/alcohol abuse -no signs of active bleeding -Avoid anticoagulation/NSAIDs -follow coags, CBC will tx for Hb < 7 or symptom ELEVATED LIPASE -CT on previous admission was unchanged from previous -Lipase 700 today, was 1600 yesterday -was evaluated by GI and d/t lack of symptoms and alcohol abuse no intervention was recommended -monitor clinically CODE STATUS: FULL CODE DVT PROPHYLAXIS: SCDs RE: anemia/thrombocytopenia DISPOSITION to be determined Vital Signs: Date Time Temp Pulse Resp B/P Pulse Ox O2 Delivery O2 Flow Rate FiO2 02/25/16 20:20 95 Room Air 02/25/16 19:50 96 18 92 Room Air 02/25/16 19:41 38.0 106 18 119/69 95 02/25/16 16:02 Room Air 02/25/16 15:21 37.5 100 18 99/46 90 Room Air 02/25/16 14:12 96 16 93 Room Air 02/25/16 12:02 Room Air 02/25/16 11:54 39.4 122 16 162/67 97 Room Air 02/25/16 08:05 Room Air 02/25/16 07:50 37.9 101 18 131/70 98 02/25/16 04:00 94 Room Air 02/25/16 03:29 118/48 02/25/16 03:23 37.3 109 16 86/37 94 Room Air 02/25/16 02:18 96 16 94 Room Air 02/25/16 00:25 98 16 94 Room Air 02/25/16 00:01 91 Room Air 2.0 02/24/16 23:10 37.1 97 20 106/51 91 Room Air Lab Results: Results Past 24 Hours Test 02/25/16 05:50 02/25/16 12:55 Range/Units White Blood Count 11.61 4.8-10.8 K/uL Red Blood Count 2.37 4.2-5.4 M/uL Hemoglobin 7.7 12.0-16.0 g/dL Hematocrit 21.6 37-47 % Mean Corpuscular Volume 91.1 80-100 fL Mean Corpuscular Hemoglobin 32.5 25-34 pg Mean Corpuscular Hemoglobin Concent 35.6 32-36 g/dl RDW Standard Deviation 55.0 36.4-46.3 fL RDW Coefficient of Variation 16.5 11.5-14.5 % Platelet Count 132 130-400 K/uL Mean Platelet Volume 9.7 7.4-10.4 fL Prothrombin Time 20.5 9.0-12.0 SECONDS Prothromb Time International Ratio 1.9 0.9-1.1 Sodium Level 135 136-145 mmol/L Potassium Level 3.6 3.5-5.1 mmol/L Chloride Level 102 98-107 mmol/L Carbon Dioxide Level 21 21-32 mmol/L Anion Gap 12.0 3-11 mmol/L Blood Urea Nitrogen 9 7-18 mg/dl Creatinine 0.88 0.60-1.20 mg/dl Est Creatinine Clear Calc Drug Dose 70.3 ml/min Estimated GFR () 85.7 Estimated GFR (Non- 74.0 BUN/Creatinine Ratio 9.9 10-20 Random Glucose 103 70-99 mg/dl Calcium Level 8.5 8.5-10.1 mg/dl Phosphorus Level 2.3 2.5-4.9 mg/dl Magnesium Level 1.9 1.8-2.4 mg/dl Total Bilirubin 6.8 0.2-1 mg/dl Direct Bilirubin 5.4 0-0.2 mg/dl Aspartate Amino Transf (AST/SGOT) 78 15-37 U/L Alanine Aminotransferase (ALT/SGPT) 22 12-78 U/L Alkaline Phosphatase 205 45-117 U/L Total Protein 5.5 6.4-8.2 gm/dl Albumin 2.3 3.4-5.0 gm/dl Procalcitonin 0.92 0-0.5 ng/mL Hepatitis B Surface Antigen NEG NEG Hepatitis C Antibody NEG NEG Microbiology Results 02/25/16 MRSA DNA Surveillance Screen - Final, Complete Specimen Negative for MRSA by DNA Probe
[2016-02-24] MEDS ORDERED: ALBUT/IPRATROP 3MG/0.5MG NEB 3 ML VIAL INH PRN (23:45)
[2016-02-25] VITALS (14 sets, daily range): BP systolic 86–162; BP diastolic 37–70; PULSE 96–122; TEMP 37.3–39.4; O2SAT 90–98
[2016-02-25] MEDS: LEVALBUTEROL 1.25MG/3ML NEB INH SCH ×4 (02:18→20:30)
[2016-02-25] MEDS: IMIPENEM/CILASTATIN IV 500 MG in DEXTROSE 5% 100ML 100 ML IV SCH ×3 (05:44→21:06)
[2016-02-25 06:42] LABS: HEMATOCRIT 21.6 % (37-47); MEAN CELL VOLUME 91.1 fL (80-100); MEAN CORPUSCULAR HEMOGLOBIN 32.5 pg (25-34); MEAN CORPUSCULAR HGB CONC 35.6 g/dl (32-36); MEAN PLATELET VOLUME 9.7 fL (7.4-10.4); PLATELET COUNT 132 K/uL (130-400); RED BLOOD COUNT 2.37 M/uL (4.2-5.4); WHITE BLOOD COUNT 11.61 K/uL (4.8-10.8)
[2016-02-25 06:49] LABS: INR 1.9 (0.9-1.1); PROTHROMBIN TIME (PATIENT) 20.5 SECONDS (9.0-12.0)
[2016-02-25 07:19] LABS: BUN/CREATININE RATIO 9.9 (10-20); CALCIUM 8.5 mg/dl (8.5-10.1); CREATININE 0.88 mg/dl (0.60-1.20); MAGNESIUM 1.9 mg/dl (1.8-2.4); POTASSIUM 3.6 mmol/L (3.5-5.1)
[2016-02-25 07:27] LABS: PHOSPHORUS 2.3 mg/dl (2.5-4.9)
[2016-02-25] MEDS: THIAMINE HCL INJ 100 MG in SYRINGE 9 ML IV SCH (09:28)
[2016-02-25] MEDS: FoLIC ACID INJ 1 MG in SYRINGE 9.8 ML IV SCH (09:28)
[2016-02-25] MEDS: LORAZEPAM 2 MG/ML 1 ML VIAL IV PRN ×3 (09:28→19:20)
[2016-02-25] MEDS: ACETAMINOPHEN 325 MG TAB PO PRN ×2 (10:49→21:58)
[2016-02-25] MEDS ORDERED: VANCOMYCIN INJ 1,000 MG in SODIUM CHLORIDE 0.9% 250ML 250 ML IV STA (12:47)
[2016-02-25] MEDS ORDERED: VANCOMYCIN CONSULT ACTIVE PRN (13:00)
--- NOTE | 2016-02-25 13:14 | Infectious Disease Progress Nt ---
Progress Note Date of Service Feb 25, 2016. Subjective Pt evaluation today including: conversation w/ patient, physical exam, chart review, lab review, review of studies, conversation w/ real estate consultant (Dr. Mayuri Ramos), review of inpatient medication list Patient continues to feel poorly this morning, but she does feel that her cough has slightly improved. It was noted that she continues to have fever today up to 39.4 C this morning Spear her white blood cell count this morning was 11.61. It was noted that her liver enzymes continue to be elevated. The patient states that she did have a hepatitis panel done approximately 10 years ago, and she was negative for hepatitis. She has not had 1 since then. I did review the patient's past records to see if she has had 1. Her blood in urine cultures are showing no growth to date. Her MRSA screen was negative. She is currently on IV vancomycin and Primaxin. She is tolerating these medications well. She has had no diarrhea. All Other Systems: Reviewed and Negative Medications Current Inpatient Medications Medications (Trade) Dose Ordered Sig/Britany Route Start Time Stop Time Status Last Admin Dose Admin Lorazepam 1 mg 1 mg Q4 PRN IV 02/23/16 16:45 03/24/16 16:44 02/25/16 09:28 1 MG Folic Acid 1 mg/ Syringe 10 ml @ 5 mls/min QAM IV 02/24/16 09:00 03/25/16 08:59 02/25/16 09:28 5 MLS/MIN Thiamine HCl 100 mg/Syringe 10 ml @ 2 mls/min QAM IV 02/24/16 09:00 03/25/16 08:59 02/25/16 09:28 2 MLS/MIN Lorazepam/Syringe (Ativan Inj/ Syringe) 1 ml @ 1 mls/min Q4H PRN IV 02/23/16 18:30 03/24/16 18:29 Acetaminophen (Tylenol Tab) 325 mg Q6H PRN PO 02/24/16 04:15 03/25/16 04:14 02/25/16 10:49 325 MG Levalbuterol 1.25 mg 1.25 mg Q6R INH 02/24/16 09:00 03/25/16 08:59 02/25/16 02:18 1.25 MG Imipenem/ Cilastatin Sodium/ Dextrose (Primaxin Iv/D5 100ml) 110 ml @ 100 mls/hr Q8H IV 02/24/16 14:00 03/05/16 13:59 02/25/16 05:44 100 MLS/HR Imipenem/ Cilastatin Sodium (Consult) 1 ea PRN N/A 02/24/16 11:30 03/25/16 11:29 Heparin Sodium (Porcine) (Heparin 10 Unit/ ml 5 ml Flush) 5 ml PRN PRN FLUSH 02/24/16 21:00 03/25/16 20:59 Albuterol/ Ipratropium 3 ml 3 ml Q2H PRN INH 02/24/16 23:45 03/25/16 23:44 02/25/16 00:25 3 ML Vancomycin HCl 1000 mg/Sodium Chloride 270 ml @ 125 mls/hr NOW STAT IV 02/25/16 12:47 02/25/16 14:56 UNV Vancomycin HCl/ Sodium Chloride (Vancomycin Inj/ Nss 250ml) 270 ml @ 125 mls/hr Q12 IV 02/25/16 21:00 03/06/16 20:59 UNV Vancomycin HCl (Consult) 1 [facility] PRN N/A 02/25/16 13:00 03/26/16 12:59 Objective Vital Signs Date Time Temp Pulse Resp B/P Pulse Ox O2 Delivery O2 Flow Rate FiO2 02/25/16 12:02 Room Air 02/25/16 11:54 39.4 122 16 162/67 97 Room Air 02/25/16 08:05 Room Air 02/25/16 07:50 37.9 101 18 131/70 98 02/25/16 04:00 94 Room Air 02/25/16 03:29 118/48 02/25/16 03:23 37.3 109 16 86/37 94 Room Air 02/25/16 02:18 96 16 94 Room Air 02/25/16 00:25 98 16 94 Room Air 02/25/16 00:01 91 Room Air 2.0 02/24/16 23:10 37.1 97 20 106/51 91 Room Air 02/24/16 20:20 Room Air 02/24/16 19:32 83 16 94 Room Air 02/24/16 16:03 36.6 89 18 123/64 90 Room Air 02/24/16 16:00 Room Air 02/24/16 14:15 81 18 91 Room Air Physical Exam General Appearance: WD/WN, no apparent distress Eyes: + pertinent finding ( scleral icterus) ENT: hearing grossly normal Neck: supple, trachea midline Respiratory/Chest: chest non-tender, normal breath sounds, no respiratory distress, no accessory muscle use, + decreased breath sounds (bases) Cardiovascular: no murmur, + tachycardia Abdomen: normal bowel sounds, non tender, soft Neurologic/Psychiatric: alert, + depressed affect Skin: warm/dry Laboratory Results Item Value Date Time MRSA DNA Surveillance Screen - Final Complete 02/25/16 0830 Nasal Specimen Negative for MRSA by DNA Probe Blood Culture - Preliminary Resulted 02/23/16 1405 Blood NO GROWTH TO DATE. Urine Culture - Final Complete 02/23/16 1335 Urine,Catheterized NO GROWTH - LESS THAN 1,000 COLONIES/ML Blood Culture - Preliminary Resulted 02/23/16 1258 Blood NO GROWTH TO DATE. Last 24 Hours Test 02/25/16 05:50 02/25/16 12:55 White Blood Count 11.61 K/uL Red Blood Count 2.37 M/uL Hemoglobin 7.7 g/dL Hematocrit 21.6 % Mean Corpuscular Volume 91.1 fL Mean Corpuscular Hemoglobin 32.5 pg Mean Corpuscular Hemoglobin Concent 35.6 g/dl RDW Standard Deviation 55.0 fL RDW Coefficient of Variation 16.5 % Platelet Count 132 K/uL Mean Platelet Volume 9.7 fL Prothrombin Time 20.5 SECONDS Prothromb Time International Ratio 1.9 Sodium Level 135 mmol/L Potassium Level 3.6 mmol/L Chloride Level 102 mmol/L Carbon Dioxide Level 21 mmol/L Anion Gap 12.0 mmol/L Blood Urea Nitrogen 9 mg/dl Creatinine 0.88 mg/dl Est Creatinine Clear Calc Drug Dose 70.3 ml/min Estimated GFR () 85.7 Estimated GFR (Non- 74.0 BUN/Creatinine Ratio 9.9 Random Glucose 103 mg/dl Calcium Level 8.5 mg/dl Phosphorus Level 2.3 mg/dl Magnesium Level 1.9 mg/dl Total Bilirubin 6.8 mg/dl Direct Bilirubin 5.4 mg/dl Aspartate Amino Transf (AST/SGOT) 78 U/L Alanine Aminotransferase (ALT/SGPT) 22 U/L Alkaline Phosphatase 205 U/L Total Protein 5.5 gm/dl Albumin 2.3 gm/dl Assessment and Plan Patient with ESBL UTI (previous admission- still on treatment), probable aspiration pneumonia and probable alcoholic cirrhosis/hepatitis. She is currently on IV Primaxin to cover for UTI and possible aspiration. Due to continued fevers, discussed addition of IV vancomycin with Dr. Ramos. She also has not had a hepatitis panel done and multiple years, therefore will check an acute hepatitis panel. Feel that this could be a cause of her continued fevers along with her probable aspiration pneumonia. We will continue to follow. case reviewed and agree with above assessment.
[2016-02-25] MEDS ORDERED: VANCOMYCIN INJ 1,750 MG in SODIUM CHLORIDE 0.9% 500ML 500 ML IV SCH (13:30)
--- NOTE | 2016-02-25 15:07 | Pharmacy Progress Note ---
Pharmacy Antibiotic Consult Date of Service: Feb 25, 2016. Pharmacy Dosing Scope Pharmacy is consulted to initiate imipenem and vancomycin IV dosing therapy, order appropriate labs and adjust drug dose/frequency. Subjective The patient is a 56 year old female admitted on Feb 23, 2016 at 15:59. Possible aspiration pneumonia, UTI, history of ESBL E.coli. Objective Height (Feet): 5 Height (Inches): 7.00 Weight (Kilograms): 71.200 Lab Results (24hrs): Laboratory Tests Test 02/25/16 05:50 BUN/Creatinine Ratio 9.9 Blood Urea Nitrogen 9 mg/dl Creatinine 0.88 mg/dl White Blood Count 11.61 K/uL Micro Results: 02/20 stool (+) C.difficile toxin 02/22 blood x2 NGTD 02/22 urine NG 02/22 serology- negative influenza A&B 02/24 nasal swab negative MRSA Recent Pertinent Medications Item Value Date Time Vancomycin HCl 270 ml @ 125 mls/hr 02/26/16 0200 1000 mg/Sodium Q14H/IV Chloride Vancomycin HCl 535 ml @ 200 mls/hr 02/25/16 1330 1750 mg/Sodium TODAY@1330/IV 02/25/16 1335 Chloride Imipenem/ 110 ml @ 100 mls/hr 02/24/16 1400 Cilastatin Sodium Q8H/IV 02/25/16 0544 500 mg/Dextrose Piperacillin Sod/ 115 ml @ 28.75 mls/hr 02/23/16 2000 Tazobactam Sod Q8H/IV 02/24/16 0501 3.375 gm/Dextrose Assessment & Plan Loading dose: vancomycin 1750 mg IV X 1 dose (~25 mg/kg), then: vancomycin 1000 mg IV every 14 hours. Goal peak level estimate: between 25-40 mcg/mL. Goal trough level estimate: between 15-20 mcg/mL. Trough has been ordered for: 02/27/16 before 0600 dose. Primaxin 500 mg q6h ordered, decrease to 500 mg q8h for CrCl 41-70 ml/min/1.73 m2. Pharmacy will continue to follow and will adjust dose/frequency as necessary. Thank you
--- NOTE | 2016-02-25 18:40 | Progress Note ---
Internal Med Progress Note Date of Service: Feb 25, 2016. Provider Documentation: SUBJECTIVE: has been spiking temp today has baseline SOB , no productive cough no nausea , no diarrhea OBJECTIVE: Vital Signs-as noted below Exam: General-chronically ill appearing Eyes-deeply icteric sclera ENT-dry oral mucosa Lungs-+ rales at base Heart-regular S1/S2 Abdomen-+ ascites Extremities-no rash Neuro-no focal neurological deficit Lab data as noted below. ASSESSMENT & PLAN: SEPSIS -Presents with: tachycardia, leukocytosis, fever, continues to have fever spike - -Blood cultures, sputum cultures no growth -Cxray Small parenchymal infiltrate both lung bases combined with small bilateral pleural effusions. Underlying component of pulmonary vascular congestion -ID consulted for further recommendations -appreciate input -Abx changed to Primaxin for coverage of both pneumonia and ESBL -added IV Vancomycin for continued fever spike ordered for hepatitis panel METABOLIC ENCEPHALOPATHY -due to sepsis with worsening of liver function -hepatic encephalopathy -Known severe liver disease, also presenting with sepsis - CT head, C-spine to r/o intracranial abnormalities -Ammonia level 28 -GI eval requested for worsening of liver function -recommends to continue supportive management PO prednisone could be considered in setting of acute alcoholic hepatitis - contraindicated in setting of active infection /sepsis will need complete abstinence form alcohol out pt GI follow up URINARY TRACT INFECTION-ESBL E.COLI -urine grew E.coli ESBL -ID was consulted -Patient was discharged on 14 day course of Invanz, continue -Abx changed to Primaxin( will cover both UTI and pneumonia ) repeat urine culture ordered ALCOHOL ABUSE -Alcohol level normal, denies alcohol use since between discharge yesterday and arrival today -IV thiamine, Folate -Continue Ativan -Monitor in tele for withdrawal symptoms CHRONIC LIVER DISEASE/CIRRHOSIS -Alcoholic liver disease -MELD score is 19 with Maddrey score of 25 -LFTs worse Total Bili 7.9, Direct Bili 5.7, AST 91, ALT 23, Alk Phos 245 -due to sepsis -GI consult placed, input appreciated /no steroid for possible alcoholic hepatitis due to active infection -recommend cont supportive management treatment of underlying sepsis /infection pt needs absolute abstinence form ETOH ANEMIA/THROMBOCYTOPENIA/COAGULOPATHY -likely related to liver disease/alcohol abuse -no signs of active bleeding -Avoid anticoagulation/NSAIDs -follow coags, CBC will tx for Hb < 7 or symptom ELEVATED LIPASE -CT on previous admission was unchanged from previous -Lipase elevated -was evaluated by GI and d/t lack of symptoms and alcohol abuse no intervention was recommended -monitor clinically -clear liquid diet CODE STATUS: FULL CODE DVT PROPHYLAXIS: SCDs RE: anemia/thrombocytopenia DISPOSITION to be determined Vital Signs: Date Time Temp Pulse Resp B/P Pulse Ox O2 Delivery O2 Flow Rate FiO2 02/25/16 20:20 95 Room Air 02/25/16 19:50 96 18 92 Room Air 02/25/16 19:41 38.0 106 18 119/69 95 02/25/16 16:02 Room Air 02/25/16 15:21 37.5 100 18 99/46 90 Room Air 02/25/16 14:12 96 16 93 Room Air 02/25/16 12:02 Room Air 02/25/16 11:54 39.4 122 16 162/67 97 Room Air 02/25/16 08:05 Room Air 02/25/16 07:50 37.9 101 18 131/70 98 02/25/16 04:00 94 Room Air 02/25/16 03:29 118/48 02/25/16 03:23 37.3 109 16 86/37 94 Room Air 02/25/16 02:18 96 16 94 Room Air 02/25/16 00:25 98 16 94 Room Air 02/25/16 00:01 91 Room Air 2.0 02/24/16 23:10 37.1 97 20 106/51 91 Room Air Lab Results: Results Past 24 Hours Test 02/25/16 05:50 02/25/16 12:55 Range/Units White Blood Count 11.61 4.8-10.8 K/uL Red Blood Count 2.37 4.2-5.4 M/uL Hemoglobin 7.7 12.0-16.0 g/dL Hematocrit 21.6 37-47 % Mean Corpuscular Volume 91.1 80-100 fL Mean Corpuscular Hemoglobin 32.5 25-34 pg Mean Corpuscular Hemoglobin Concent 35.6 32-36 g/dl RDW Standard Deviation 55.0 36.4-46.3 fL RDW Coefficient of Variation 16.5 11.5-14.5 % Platelet Count 132 130-400 K/uL Mean Platelet Volume 9.7 7.4-10.4 fL Prothrombin Time 20.5 9.0-12.0 SECONDS Prothromb Time International Ratio 1.9 0.9-1.1 Sodium Level 135 136-145 mmol/L Potassium Level 3.6 3.5-5.1 mmol/L Chloride Level 102 98-107 mmol/L Carbon Dioxide Level 21 21-32 mmol/L Anion Gap 12.0 3-11 mmol/L Blood Urea Nitrogen 9 7-18 mg/dl Creatinine 0.88 0.60-1.20 mg/dl Est Creatinine Clear Calc Drug Dose 70.3 ml/min Estimated GFR () 85.7 Estimated GFR (Non- 74.0 BUN/Creatinine Ratio 9.9 10-20 Random Glucose 103 70-99 mg/dl Calcium Level 8.5 8.5-10.1 mg/dl Phosphorus Level 2.3 2.5-4.9 mg/dl Magnesium Level 1.9 1.8-2.4 mg/dl Total Bilirubin 6.8 0.2-1 mg/dl Direct Bilirubin 5.4 0-0.2 mg/dl Aspartate Amino Transf (AST/SGOT) 78 15-37 U/L Alanine Aminotransferase (ALT/SGPT) 22 12-78 U/L Alkaline Phosphatase 205 45-117 U/L Total Protein 5.5 6.4-8.2 gm/dl Albumin 2.3 3.4-5.0 gm/dl Procalcitonin 0.92 0-0.5 ng/mL Hepatitis B Surface Antigen NEG NEG Hepatitis C Antibody NEG NEG Microbiology Results 02/25/16 MRSA DNA Surveillance Screen - Final, Complete Specimen Negative for MRSA by DNA Probe
[2016-02-26] VITALS (10 sets, daily range): BP systolic 92–120; BP diastolic 45–70; PULSE 78–114; TEMP 37.3–38; O2SAT 90–97
[2016-02-26] LABS: HEMATOCRIT 23.5 % (37-47)
[2016-02-26 00:30] LABS: BUN/CREATININE RATIO 9.4 (10-20); CALCIUM 8.1 mg/dl (8.5-10.1); CREATININE 0.83 mg/dl (0.60-1.20); MAGNESIUM 1.5 mg/dl (1.8-2.4)
[2016-02-26] MEDS: MAGNESIUM SULFATE 1GM / D5W 1 GM in PREMIXED IN D5W 100 ML IV SCH ×2 (00:45→01:59)
[2016-02-26] MEDS ORDERED: VANCOMYCIN INJ 1,000 MG in SODIUM CHLORIDE 0.9% 250ML 250 ML IV SCH (02:00)
[2016-02-26] MEDS: LORAZEPAM 2 MG/ML 1 ML VIAL IV PRN ×4 (02:12→21:06)
[2016-02-26] MEDS: LEVALBUTEROL 1.25MG/3ML NEB INH SCH ×3 (02:32→19:33)
[2016-02-26] MEDS: IMIPENEM/CILASTATIN IV 500 MG in DEXTROSE 5% 100ML 100 ML IV SCH ×3 (05:47→21:58)
[2016-02-26 07:05] LABS: HEMATOCRIT 24.5 % (37-47); MEAN CELL VOLUME 94.6 fL (80-100); MEAN CORPUSCULAR HEMOGLOBIN 33.2 pg (25-34); MEAN CORPUSCULAR HGB CONC 35.1 g/dl (32-36); MEAN PLATELET VOLUME 10.2 fL (7.4-10.4); PLATELET COUNT 133 K/uL (130-400); RED BLOOD COUNT 2.59 M/uL (4.2-5.4); WHITE BLOOD COUNT 7.73 K/uL (4.8-10.8)
[2016-02-26 07:14] LABS: INR 1.7 (0.9-1.1); PROTHROMBIN TIME (PATIENT) 18.7 SECONDS (9.0-12.0)
[2016-02-26 07:41] LABS: BUN/CREATININE RATIO 8.9 (10-20); CREATININE 0.89 mg/dl (0.60-1.20); PHOSPHORUS 2.8 mg/dl (2.5-4.9); POTASSIUM 3.7 mmol/L (3.5-5.1)
[2016-02-26] MEDS: ACETAMINOPHEN 325 MG TAB PO PRN (09:05)
[2016-02-26] MEDS: THIAMINE HCL INJ 100 MG in SYRINGE 9 ML IV SCH (09:05)
[2016-02-26] MEDS: FoLIC ACID INJ 1 MG in SYRINGE 9.8 ML IV SCH (09:05)
--- NOTE | 2016-02-26 13:32 | Progress Note ---
Internal Med Progress Note Date of Service: Feb 26, 2016. Provider Documentation: SUBJECTIVE: afebrile today remains confused sitting up on side of bed , very impulsive -wants to go home 1; 1 sitter present has dry non productive cough tolerating clears well , denies of nausea . abdominal pain had no diarrhea or dark stool pt can not specify any complain , drifts form subject to subject while talking after repeated counselling decided to settle down and stay in hospital for continued treatment OBJECTIVE: Vital Signs-as noted below Exam: General-chronically ill appearing , disheveled , confused Eyes-deeply icteric sclera ENT-dry oral mucosa Lungs-+ rales at base ;+ crackles Heart-regular S1/S2 Abdomen-+ ascites Extremities-no rash Neuro-no focal neurological deficit , confused , encephalopathic , not aware of her surrounding , can not participate in meaningful conversation has tremors in hand . + [employer] Lab data as noted below. ASSESSMENT & PLAN: SEPSIS due to UTI /ESBL -Presents with: tachycardia, leukocytosis, fever, had persisted fever yesterday afebrile now - -Blood cultures, sputum cultures no growth -Cxray Small parenchymal infiltrate both lung bases combined with small bilateral pleural effusions. Underlying component of pulmonary vascular congestion -ID consulted for further recommendations -appreciate input -Abx changed to Primaxin for coverage of both pneumonia and ESBL -MRSA screen negative, no further fever spike IV vanco Dced no diarrhea , hepatitis panel -negative cont to monitor METABOLIC ENCEPHALOPATHY -due to sepsis with worsening of liver function -hepatic encephalopathy remains confused -Known severe liver disease with anemia , thrombocytopenia , coagulopathy , chronic hyperbilirubinemia also presenting with sepsis - CT head, C-spine to r/o intracranial abnormalities -Ammonia level 28 -GI eval requested for worsening of liver function -recommends to continue supportive management PO prednisone could be considered in setting of acute alcoholic hepatitis - contraindicated in setting of active infection /sepsis will need complete abstinence form alcohol out pt GI follow up very poor prognosis URINARY TRACT INFECTION-ESBL E.COLI -urine grew E.coli ESBL in recent admission -ID was consulted -Patient was discharged on 14 day course of Invanz, continue -Abx changed to Primaxin( will cover both UTI and pneumonia ) repeat urine culture -negative growth will cont IV Primaxin to complete course ALCOHOL ABUSE -Alcohol level normal, denies alcohol use since between discharge yesterday and arrival today -IV thiamine, Folate -Continue Ativan -Monitor in tele for withdrawal symptoms CHRONIC LIVER DISEASE/CIRRHOSIS -Alcoholic liver disease -MELD score is 19 with Maddrey score of 25 -presented with Total Bili 7.9, Direct Bili 5.7, AST 91, ALT 23, Alk Phos 245 -due to sepsis -GI consult placed, input appreciated /no steroid for possible alcoholic hepatitis due to active infection -recommend cont supportive management treatment of underlying sepsis /infection pt needs absolute abstinence form ETOH ANEMIA/THROMBOCYTOPENIA/COAGULOPATHY -due to alcoholic liver disease -no signs of active bleeding -Avoid anticoagulation/NSAIDs -follow coags, CBC will tx for Hb < 7 or symptom ELEVATED LIPASE -CT on previous admission was unchanged from previous -Lipase elevated -was evaluated by GI and d/t lack of symptoms and alcohol abuse no intervention was recommended -monitor clinically -clear liquid diet CODE STATUS: FULL CODE DVT PROPHYLAXIS: SCDs RE: anemia/thrombocytopenia DISPOSITION to be determined not safe to return home Pt/Ot eval requested will benefit SNF /rehab when medically stable Vital Signs: Date Time Temp Pulse Resp B/P Pulse Ox O2 Delivery O2 Flow Rate FiO2 02/26/16 12:27 37.3 80 18 93/53 92 Room Air 02/26/16 08:35 37.5 110 18 120/67 90 Room Air 02/26/16 07:10 100 16 94 Nasal Cannula 2.0 02/26/16 04:20 Room Air 02/26/16 02:59 38.0 105 17 104/56 93 Room Air 02/26/16 02:32 114 16 94 Room Air 02/26/16 00:20 Room Air 02/25/16 23:47 38.7 116 20 107/58 91 Nasal Cannula 2.0 02/25/16 20:20 95 Room Air 02/25/16 19:50 96 18 92 Room Air 02/25/16 19:41 38.0 106 18 119/69 95 02/25/16 16:02 Room Air 02/25/16 15:21 37.5 100 18 99/46 90 Room Air 02/25/16 14:12 96 16 93 Room Air Lab Results: Results Past 24 Hours Test 02/25/16 23:45 02/26/16 06:32 Range/Units Hemoglobin 8.4 8.6 12.0-16.0 g/dL Hematocrit 23.5 24.5 37-47 % Sodium Level 136 135 136-145 mmol/L Potassium Level 4.0 3.7 3.5-5.1 mmol/L Chloride Level 103 100 98-107 mmol/L Carbon Dioxide Level 22 23 21-32 mmol/L Anion Gap 11.0 12.0 3-11 mmol/L Blood Urea Nitrogen 8 8 7-18 mg/dl Creatinine 0.83 0.89 0.60-1.20 mg/dl Est Creatinine Clear Calc Drug Dose 74.5 69.5 ml/min Estimated GFR () 92.0 84.6 Estimated GFR (Non- 79.4 73.0 BUN/Creatinine Ratio 9.4 8.9 10-20 Random Glucose 77 102 70-99 mg/dl Calcium Level 8.1 8.0 8.5-10.1 mg/dl Magnesium Level 1.5 2.0 1.8-2.4 mg/dl White Blood Count 7.73 4.8-10.8 K/uL Red Blood Count 2.59 4.2-5.4 M/uL Mean Corpuscular Volume 94.6 80-100 fL Mean Corpuscular Hemoglobin 33.2 25-34 pg Mean Corpuscular Hemoglobin Concent 35.1 32-36 g/dl RDW Standard Deviation 58.0 36.4-46.3 fL RDW Coefficient of Variation 16.8 11.5-14.5 % Platelet Count 133 130-400 K/uL Mean Platelet Volume 10.2 7.4-10.4 fL Prothrombin Time 18.7 9.0-12.0 SECONDS Prothromb Time International Ratio 1.7 0.9-1.1 Phosphorus Level 2.8 2.5-4.9 mg/dl Total Bilirubin 6.2 0.2-1 mg/dl Direct Bilirubin 5.1 0-0.2 mg/dl Aspartate Amino Transf (AST/SGOT) 170 15-37 U/L Alanine Aminotransferase (ALT/SGPT) 29 12-78 U/L Alkaline Phosphatase 202 45-117 U/L Total Protein 5.5 6.4-8.2 gm/dl Albumin 2.3 3.4-5.0 gm/dl
[2016-02-26] MEDS ORDERED: NURSING VERBAL MED ORDER ONE (15:15)
[2016-02-26] MEDS ORDERED: NICOTINE 21 MG/24 HR TDSY EXT ONE (16:00)
[2016-02-27] VITALS (7 sets, daily range): BP systolic 98–122; BP diastolic 59–75; PULSE 82–97; TEMP 36.9–37.1; O2SAT 91–97
[2016-02-27] MEDS: LEVALBUTEROL 1.25MG/3ML NEB INH SCH ×2 (02:16→08:25)
[2016-02-27] MEDS ORDERED: VANCOMYCIN TROUGH SCH (05:30)
[2016-02-27] MEDS: IMIPENEM/CILASTATIN IV 500 MG in DEXTROSE 5% 100ML 100 ML IV SCH ×2 (05:57→19:36)
[2016-02-27 07:12] LABS: HEMATOCRIT 24.4 % (37-47); MEAN CELL VOLUME 92.1 fL (80-100); MEAN CORPUSCULAR HEMOGLOBIN 33.6 pg (25-34); MEAN CORPUSCULAR HGB CONC 36.5 g/dl (32-36); MEAN PLATELET VOLUME 10.5 fL (7.4-10.4); PLATELET COUNT 123 K/uL (130-400); RED BLOOD COUNT 2.65 M/uL (4.2-5.4)
[2016-02-27 07:19] LABS: INR 1.7 (0.9-1.1); PROTHROMBIN TIME (PATIENT) 18.8 SECONDS (9.0-12.0)
[2016-02-27 07:42] LABS: CALCIUM 8.2 mg/dl (8.5-10.1); CREATININE 0.69 mg/dl (0.60-1.20); MAGNESIUM 1.8 mg/dl (1.8-2.4)
[2016-02-27] MEDS: FoLIC ACID INJ 1 MG in SYRINGE 9.8 ML IV SCH (08:46)
[2016-02-27] MEDS: NICOTINE 21 MG/24 HR TDSY EXT SCH (08:46)
[2016-02-27] MEDS: THIAMINE HCL INJ 100 MG in SYRINGE 9 ML IV SCH (08:47)
[2016-02-27] MEDS ORDERED: COUGH DROP (SUGAR FREE) LOZ 24 LOZ/1 BOX ONE (08:53)
[2016-02-27] MEDS: LORAZEPAM 2 MG/ML 1 ML VIAL IV PRN (09:13)
[2016-02-27] MEDS ORDERED: NURSING VERBAL MED ORDER ONE ×2 (09:15)
[2016-02-27] MEDS ORDERED: COUGH DROP (SUGAR FREE) LOZ 24 LOZ/1 BOX PO PRN (09:15)
[2016-02-27] MEDS ORDERED: IMIPENEM/CILASTATIN IV 500 MG in DEXTROSE 5% 100ML 100 ML IV SCH ×2 (12:00→17:30)
[2016-02-27] MEDS ORDERED: LEValbuterol HFA 15GM INHALER INH SCH (13:00)
[2016-02-27] MEDS: LEValbuterol HFA 15GM INHALER INH SCH ×2 (15:00→19:37)
--- NOTE | 2016-02-27 17:19 | Progress Note ---
Internal Med Progress Note Date of Service: Feb 27, 2016. Provider Documentation: SUBJECTIVE: remains confused no productive cough no fever or chills vitals remains stable OBJECTIVE: Vital Signs-as noted below Exam: General-chronically ill appearing , disheveled , confused Eyes-deeply icteric sclera ENT-dry oral mucosa Lungs-+ rales at base ;+ crackles Heart-regular S1/S2 Abdomen-+ ascites Extremities-no rash Neuro-no focal neurological deficit , confused , encephalopathic , not aware of her surrounding , can not participate in meaningful conversation has tremors in hand . + [facility] Lab data as noted below. ASSESSMENT & PLAN: SEPSIS due to UTI /ESBL /Pneumonia -Presents with: tachycardia, leukocytosis, fever, had persisted fever yesterday afebrile now - -Blood cultures, sputum cultures no growth Urine cx on 02/16/16 -E coli ESBL -resistant to Cipro/Levaquin sensitive to Imipenem , Invanz pt was discharged home with IV Invanz on 02/22/16 returned to ED within 24 hrs with fever , confusion , sepsis on 02/23/16 -Cxray Small parenchymal infiltrate both lung bases combined with small bilateral pleural effusions. Underlying component of pulmonary vascular congestion -ID consulted for further recommendations -appreciate input -Abx changed to Primaxin for coverage of both pneumonia and ESBL E.coli /UTI -MRSA screen negative, no further fever spike IV vanco Dced ordered stool for C diff for diarrhea hepatitis panel -negative transfer to medical floor METABOLIC ENCEPHALOPATHY -due to sepsis with worsening of liver function -hepatic encephalopathy remains confused -Known severe liver disease with anemia , thrombocytopenia , coagulopathy , chronic hyperbilirubinemia also presenting with sepsis - CT head, C-spine to r/o intracranial abnormalities -Ammonia level 28 -GI eval requested for worsening of liver function -recommends to continue supportive management PO prednisone could be considered in setting of acute alcoholic hepatitis - contraindicated in setting of active infection /sepsis will need complete abstinence form alcohol out pt GI follow up very poor prognosis URINARY TRACT INFECTION-ESBL E.COLI -urine grew E.coli ESBL in recent admission -ID was consulted -Patient was discharged on 14 day course of Invanz, continue -Abx changed to Primaxin( will cover both UTI and pneumonia ) repeat urine culture -negative growth will cont IV Primaxin to complete course ALCOHOL ABUSE -Alcohol level normal, denies alcohol use since between discharge yesterday and arrival today -thiamine, Folate change to PO -Continue Ativan -no sign of withdrawl CHRONIC LIVER DISEASE/CIRRHOSIS -Alcoholic liver disease -MELD score is 19 with Maddrey score of 25 -presented with Total Bili 7.9, Direct Bili 5.7, AST 91, ALT 23, Alk Phos 245 -due to sepsis -GI consult placed, input appreciated /no steroid for possible alcoholic hepatitis due to active infection -recommend cont supportive management treatment of underlying sepsis /infection pt needs absolute abstinence form ETOH ANEMIA/THROMBOCYTOPENIA/COAGULOPATHY -due to alcoholic liver disease -no signs of active bleeding -Avoid anticoagulation/NSAIDs -follow coags, CBC will tx for Hb < 7 or symptom ELEVATED LIPASE -CT on previous admission was unchanged from previous -Lipase elevated -was evaluated by GI and d/t lack of symptoms and alcohol abuse no intervention was recommended -monitor clinically diet advanced to low Na CODE STATUS: FULL CODE DVT PROPHYLAXIS: SCDs RE: anemia/thrombocytopenia DISPOSITION to be determined not safe to return home Pt/Ot eval requested will benefit SNF /rehab when medically stable Vital Signs: Date Time Temp Pulse Resp B/P Pulse Ox O2 Delivery O2 Flow Rate FiO2 02/27/16 18:30 37.1 88 18 92 2.0 02/27/16 16:00 Room Air 02/27/16 15:17 37.1 88 18 98/59 92 Nasal Cannula 2.0 02/27/16 12:00 Room Air 02/27/16 11:28 37.0 93 16 105/66 93 Room Air 02/27/16 08:00 Room Air 02/27/16 07:20 37.1 97 18 122/72 91 Room Air 02/27/16 04:07 36.9 94 18 122/75 93 Room Air 02/27/16 04:02 Room Air 02/27/16 00:02 Room Air 02/26/16 23:50 37.6 87 24 117/70 97 Room Air Lab Results: Results Past 24 Hours Test 02/27/16 06:50 Range/Units White Blood Count 7.00 4.8-10.8 K/uL Red Blood Count 2.65 4.2-5.4 M/uL Hemoglobin 8.9 12.0-16.0 g/dL Hematocrit 24.4 37-47 % Mean Corpuscular Volume 92.1 80-100 fL Mean Corpuscular Hemoglobin 33.6 25-34 pg Mean Corpuscular Hemoglobin Concent 36.5 32-36 g/dl RDW Standard Deviation 56.3 36.4-46.3 fL RDW Coefficient of Variation 16.9 11.5-14.5 % Platelet Count 123 130-400 K/uL Mean Platelet Volume 10.5 7.4-10.4 fL Prothrombin Time 18.8 9.0-12.0 SECONDS Prothromb Time International Ratio 1.7 0.9-1.1 Sodium Level 136 136-145 mmol/L Potassium Level 4.0 3.5-5.1 mmol/L Chloride Level 103 98-107 mmol/L Carbon Dioxide Level 23 21-32 mmol/L Anion Gap 10.0 3-11 mmol/L Blood Urea Nitrogen 8 7-18 mg/dl Creatinine 0.69 0.60-1.20 mg/dl Est Creatinine Clear Calc Drug Dose 89.6 ml/min Estimated GFR () 113.6 Estimated GFR (Non- 98.0 BUN/Creatinine Ratio 11.0 10-20 Random Glucose 80 70-99 mg/dl Calcium Level 8.2 8.5-10.1 mg/dl Magnesium Level 1.8 1.8-2.4 mg/dl Total Bilirubin 5.9 0.2-1 mg/dl Direct Bilirubin 4.8 0-0.2 mg/dl Aspartate Amino Transf (AST/SGOT) 145 15-37 U/L Alanine Aminotransferase (ALT/SGPT) 27 12-78 U/L Alkaline Phosphatase 226 45-117 U/L Total Protein 5.5 6.4-8.2 gm/dl Albumin 2.3 3.4-5.0 gm/dl
[2016-02-28] MEDS: IMIPENEM/CILASTATIN IV 500 MG in DEXTROSE 5% 100ML 100 ML IV SCH ×4 (02:20→20:50)
[2016-02-28] MEDS: LEValbuterol HFA 15GM INHALER INH SCH ×4 (03:00→20:48)
[2016-02-28 07:04] VITALS: BP 102/58; PULSE 80; TEMP 37.2; O2SAT 97
[2016-02-28] MEDS: NICOTINE 21 MG/24 HR TDSY EXT SCH (07:48)
[2016-02-28] MEDS: THIAMINE HCL 100 MG TAB PO SCH (07:49)
[2016-02-28] MEDS ORDERED: LEVOFLOXACIN 750 MG TAB PO SCH (11:00)
--- NOTE | 2016-02-28 13:19 | Infectious Disease Progress Nt ---
Progress Note Date of Service Feb 28, 2016. Subjective Pt evaluation today including: conversation w/ patient, physical exam, chart review, lab review, review of studies, review of inpatient medication list WBC count 7.00 yesterday. Continued increase of LFTs. She is feeling slightly better and wishes to go home. C. Diff toxin was negative. Patient is complaining of no diarrhea. She states that she continues to be slightly weak but otherwise feels better. Her breathing is improved. All Other Systems: Reviewed and Negative Medications Current Inpatient Medications Medications (Trade) Dose Ordered Sig/Britany Route Start Time Stop Time Status Last Admin Dose Admin Lorazepam 1 mg 1 mg Q4 PRN IV 02/23/16 16:45 03/24/16 16:44 02/27/16 09:13 1 MG Lorazepam/Syringe (Ativan Inj/ Syringe) 1 ml @ 1 mls/min Q4H PRN IV 02/23/16 18:30 03/24/16 18:29 02/29/16 03:41 1 MLS/MIN Acetaminophen (Tylenol Tab) 325 mg Q6H PRN PO 02/24/16 04:15 03/25/16 04:14 02/29/16 00:52 325 MG Heparin Sodium (Porcine) (Heparin 10 Unit/ ml 5 ml Flush) 5 ml PRN PRN FLUSH 02/24/16 21:00 03/25/16 20:59 02/29/16 04:58 5 ML Albuterol/ Ipratropium (Duoneb) 3 ml Q2H PRN INH 02/24/16 23:45 03/25/16 23:44 02/25/16 00:25 3 ML Nicotine (Nicoderm Cq 21MG Patch) 1 patch QAM EXT 02/27/16 09:00 03/28/16 08:59 02/27/16 08:46 1 PATCH Miscellaneous (Remove Nicoderm Patch) 1 ea QAM N/A 02/27/16 09:00 03/28/16 08:59 02/29/16 07:47 1 EA Levalbuterol (Xopenex Hfa Inhaler) 2 puffs Q6R INH 02/27/16 15:00 03/28/16 14:59 02/29/16 07:48 2 PUFFS Menthol (Nice Unique) 1 unique PRN PRN PO 02/27/16 09:15 03/28/16 09:14 02/27/16 09:21 1 UNIQUE Folic Acid (Folvite Tab) 1 mg QAM PO 02/28/16 08:00 03/29/16 08:59 02/29/16 07:58 1 MG Thiamine HCl 100 mg 100 mg QAM PO 02/28/16 08:00 03/29/16 08:59 02/29/16 07:58 100 MG Ertapenem/Sodium Chloride (Invanz IV/Nss Ad-Van 50ml) 50 ml @ 120 mls/hr Q24H IV 02/29/16 08:00 03/07/16 07:59 02/29/16 07:47 120 MLS/HR Objective Vital Signs Date Time Temp Pulse Resp B/P Pulse Ox O2 Delivery O2 Flow Rate FiO2 02/28/16 07:50 Room Air 02/28/16 07:04 37.2 80 17 102/58 97 Room Air 02/28/16 00:00 Room Air 02/27/16 23:13 36.9 82 18 118/70 97 Room Air 02/27/16 20:00 Room Air 02/27/16 19:30 37.1 90 18 110/68 96 Room Air 02/27/16 18:30 37.1 88 18 92 2.0 02/27/16 16:00 Room Air 02/27/16 15:17 37.1 88 18 98/59 92 Nasal Cannula 2.0 Physical Exam General Appearance: WD/WN, no apparent distress Eyes: + pertinent finding (icterus) ENT: hearing grossly normal Neck: supple Respiratory/Chest: chest non-tender, no respiratory distress, no accessory muscle use, + crackles (bilateral bases) Cardiovascular: regular rate, rhythm Abdomen: normal bowel sounds Extremities: normal range of motion Neurologic/Psychiatric: alert Skin: normal color, warm/dry, no rash Laboratory Results Item Value Date Time C.difficile Toxin B Gene (PCR) - Final Complete 02/27/16 0000 Stool No C. difficile toxin B gene detected MRSA DNA Surveillance Screen - Final Complete 02/25/16 0830 Nasal Specimen Negative for MRSA by DNA Probe Blood Culture - Preliminary Resulted 02/23/16 1405 Blood NO GROWTH TO DATE. Urine Culture - Final Complete 02/23/16 1335 Urine,Catheterized NO GROWTH - LESS THAN 1,000 COLONIES/ML Blood Culture - Preliminary Resulted 02/23/16 1258 Blood NO GROWTH TO DATE. Assessment and Plan Patient with ESBL UTI (previous admission- still on treatment), probable aspiration pneumonia and probable alcoholic cirrhosis/hepatitis. She is currently on IV Primaxin to cover for UTI and possible aspiration. The patient has been afebrile x 2 days. From an ID perspective, would recommend completing 14 days of IV abx for UTI due to previous E. Coli bacteremia. Therefore, her stop date would be 03/05/16. She likely can transition back to IV Ertapenem for ease of use at home and no Pseudomonal growth from cultures- Ertapenem would still cover for anaerobic/aspiration pneumonia. Hepatitis panel was negative. She already has a PICC in place. She is OK for D/C from ID perspective when medically cleared. case reviewed and agree with above assessment.
[2016-02-28 15:35] VITALS: BP 109/61; PULSE 80; TEMP 37.1; O2SAT 97
--- NOTE | 2016-02-28 20:58 | Progress Note ---
Internal Med Progress Note Date of Service: Feb 28, 2016. Provider Documentation: SUBJECTIVE: more awake and alert wants to go home explained to pt not safe to return home -given ongoing infection recent fall , readmission agreed to try short term rehab OBJECTIVE: Vital Signs-as noted below Exam: General-chronically ill appearing , disheveled , confused Eyes-deeply icteric sclera ENT-dry oral mucosa Lungs-+ rales at base ;+ crackles Heart-regular S1/S2 Abdomen-+ ascites Extremities-no rash Neuro-no focal neurological deficit , confused , encephalopathic , not aware of her surrounding , can not participate in meaningful conversation has tremors in hand . + [employer] Lab data as noted below. ASSESSMENT & PLAN: SEPSIS due to UTI /ESBL /Pneumonia -Presents with: tachycardia, leukocytosis, fever, had persisted fever yesterday afebrile now - -Blood cultures, sputum cultures no growth Urine cx on 02/16/16 -E coli ESBL -resistant to Cipro/Levaquin sensitive to Imipenem , Invanz pt was discharged home with IV Invanz on 02/22/16 returned to ED within 24 hrs with fever , confusion , sepsis on 02/23/16 -Cxray Small parenchymal infiltrate both lung bases combined with small bilateral pleural effusions. Underlying component of pulmonary vascular congestion -ID consulted for further recommendations -appreciate input -Abx changed to Primaxin for coverage of both pneumonia and ESBL E.coli /UTI -MRSA screen negative, no further fever spike ordered stool for C diff for diarrhea hepatitis panel -negative METABOLIC ENCEPHALOPATHY -due to sepsis with worsening of liver function -hepatic encephalopathy mental status gradually improving -Known severe liver disease with anemia , thrombocytopenia , coagulopathy , chronic hyperbilirubinemia also presenting with sepsis - CT head, C-spine to r/o intracranial abnormalities -Ammonia level 28 -GI eval requested for worsening of liver function -recommends to continue supportive management PO prednisone could be considered in setting of acute alcoholic hepatitis - contraindicated in setting of active infection /sepsis will need complete abstinence form alcohol out pt GI follow up very poor prognosis URINARY TRACT INFECTION-ESBL E.COLI -urine grew E.coli ESBL in recent admission -ID was consulted -Patient was discharged on 14 day course of Invanz, continue -Abx changed to Primaxin( will cover both UTI and pneumonia ) repeat urine culture -negative growth will cont IV Primaxin to complete course ALCOHOL ABUSE -Alcohol level normal, denies alcohol use since between discharge yesterday and arrival today -thiamine, Folate change to PO -Continue Ativan -no sign of withdrawl CHRONIC LIVER DISEASE/CIRRHOSIS -Alcoholic liver disease -MELD score is 19 with Maddrey score of 25 -presented with Total Bili 7.9, Direct Bili 5.7, AST 91, ALT 23, Alk Phos 245 -due to sepsis -GI consult placed, input appreciated /no steroid for possible alcoholic hepatitis due to active infection -recommend cont supportive management treatment of underlying sepsis /infection pt needs absolute abstinence form ETOH ANEMIA/THROMBOCYTOPENIA/COAGULOPATHY -due to alcoholic liver disease -no signs of active bleeding -Avoid anticoagulation/NSAIDs -follow coags, CBC will tx for Hb < 7 or symptom ELEVATED LIPASE -CT on previous admission was unchanged from previous -Lipase elevated -was evaluated by GI and d/t lack of symptoms and alcohol abuse no intervention was recommended -monitor clinically diet advanced to low Na CODE STATUS: FULL CODE DVT PROPHYLAXIS: SCDs RE: anemia/thrombocytopenia DISPOSITION to be determined not safe to return home Pt/Ot eval requested will benefit SNF /rehab when medically stable Vital Signs: Date Time Temp Pulse Resp B/P Pulse Ox O2 Delivery O2 Flow Rate FiO2 02/28/16 16:00 Room Air 02/28/16 15:35 37.1 80 16 109/61 97 Room Air 02/28/16 07:50 Room Air 02/28/16 07:04 37.2 80 17 102/58 97 Room Air 02/28/16 00:00 Room Air
[2016-02-29] VITALS: BP 108/66; PULSE 93; TEMP 36.8; O2SAT 94
[2016-02-29] MEDS: ACETAMINOPHEN 325 MG TAB PO PRN (00:52)
[2016-02-29 01:29] LABS: HYDROXYETHYLFLURAZEPAM CONF NEGATIVE NG/ML (CUTOFF=50); HYDROXYMIDAZOLAM NEGATIVE NG/ML (CUTOFF=50); HYDROXYTRIAZOLAM CONF NEGATIVE NG/ML (CUTOFF=50); TEMAZEPAM CONF NEGATIVE NG/ML (CUTOFF=50)
[2016-02-29] MEDS: IMIPENEM/CILASTATIN IV 500 MG in DEXTROSE 5% 100ML 100 ML IV SCH (02:00)
--- NOTE | 2016-02-29 02:20 | Progress Note ---
Progress Note pt found ambulating independently in room very upset , wants to go home , feels she will be much comfortable , will have better exercise while at home than being in hospital or going to rehab ( was in [facility] in past -did not think it helped her much ) wants to return home PER ID NOTE : Patient with ESBL UTI (previous admission- still on treatment), probable aspiration pneumonia and probable alcoholic cirrhosis/hepatitis. currently on IV Primaxin to cover for UTI and possible aspiration. The patient has been afebrile x 2 days. From an ID perspective, would recommend completing 14 days of IV abx for UTI due to previous E. Coli bacteremia. Therefore, her stop date would be 03/05/16. She likely can transition back to IV Ertapenem for ease of use at home and no Pseudomonal growth from cultures- Ertapenem would still cover for anaerobic/ aspiration pneumonia. Hepatitis panel was negative. She already has a PICC in place. She is OK for D/C from ID perspective when medically cleared. WILL CHANGE ABX TO IV INVANZ DC HOME TOMORROW WITH IV ABX
[2016-02-29] MEDS: LEValbuterol HFA 15GM INHALER INH SCH ×4 (04:01→21:00)
[2016-02-29 07:46] LABS: CREATININE 0.67 mg/dl (0.60-1.20)
[2016-02-29] MEDS: ERTAPENEM IV 1 GM in SODIUM CHLOR 0.9% AD-VAN 50ML 50 ML IV SCH (07:47)
[2016-02-29] MEDS: THIAMINE HCL 100 MG TAB PO SCH (07:58)
[2016-02-29] MEDS: NICOTINE 21 MG/24 HR TDSY EXT SCH (07:58)
[2016-02-29 08:00] VITALS: O2SAT 96
[2016-02-29 08:43] VITALS: BP 93/57; PULSE 80; TEMP 36.9; O2SAT 96
[2016-02-29 15:55] VITALS: BP 93/55; PULSE 95; TEMP 36.9; O2SAT 93
--- NOTE | 2016-02-29 18:18 | Progress Note ---
Medicine Progress Note Date & Time of Visit: Feb 29, 2016 at 18:06. Subjective seen sitting up in bed, comfortable denies chest pain, dyspnea, cough no abdominal pain, nausea denies other symptoms very upset when informed she is not going home today, most likely tomorrow, states "this is bullshit" she then called her "fikal" to talk to me, informed delmy that plan is to re- evaluate the patient tomorrow he also talked to case management and agreement was discharge tomorrow with home health, IV antibiotics patient apparently thought she was going home delmy may spoke with patient and she is agreeable not to go home today denies other symptoms Objective Last 8 Hrs Date Time Temp Pulse Resp B/P Pulse Ox O2 Delivery O2 Flow Rate FiO2 02/29/16 16:00 Room Air 02/29/16 15:55 36.9 95 19 93/55 93 Room Air Physical Exam: General- oriented to person and place, not in distress, speaks in sentences with no effort Head- atraumatic Eyes- (+) mild icterus Neck- no JVD Lungs- clear to auscultation bilaterally, no rales/wheezes Heart- normal rate, regular rhythm; no murmur Abdomen- normal bowel sounds, soft, nontender Extremities- no pretibial edema, no calf tenderness Neuro- alert, oriented x 2; no gross focal deficits Skin- warm & dry Laboratory Results: Last 24 Hours Test 02/29/16 06:40 Creatinine 0.67 mg/dl Est Creatinine Clear Calc Drug Dose 92.3 ml/min Estimated GFR () 114.7 Estimated GFR (Non- 99.0 Assessment & Plan SEPSIS due to UTI, ESBL / Possible Pneumonia Urine cx on 02/16/16 -E coli ESBL -resistant to Cipro/Levaquin . sensitive to Imipenem , Invanz Admitted and was discharged home with IV Invanz on 02/22/16 Returned to ED within 24 hrs with fever , confusion , sepsis on 02/23/16 Presents with: tachycardia, leukocytosis, fever, - repeat Blood cultures, sputum cultures no growth Chest Xray Small parenchymal infiltrate both lung bases combined with small bilateral pleural effusions. Underlying component of pulmonary vascular congestion. -ID consulted for further recommendations -appreciate input recommend to continue Ertapenem until 03/05/16 -MRSA screen negative C diff negative Hepatitis panel -negative METABOLIC ENCEPHALOPATHY - due to sepsis with worsening of liver function -hepatic encephalopathy mental status gradually improving - CT head, C-spine to r/o intracranial abnormalities: unremarkable Ammonia level 28 - GI eval requested for worsening of liver function, recommended to continue supportive management will need complete abstinence form alcohol out pt GI follow up very poor prognosis ALCOHOL ABUSE -Alcohol level normal, denies alcohol use since between discharge and re- admission -thiamine, Folate change to PO -Continue Ativan -no signs of withdrawal CHRONIC LIVER DISEASE/CIRRHOSIS -Alcoholic liver disease -MELD score is 19 with Maddrey score of 25 -presented with Total Bili 7.9, Direct Bili 5.7, AST 91, ALT 23, Alk Phos 245 -due to sepsis -GI consult placed, input appreciated /no steroid for possible alcoholic hepatitis due to active infection -recommend cont supportive management , abstinence from alcohol ANEMIA/THROMBOCYTOPENIA/COAGULOPATHY -due to alcoholic liver disease -no signs of active bleeding -Avoid anticoagulation/NSAIDs -follow coags, CBC will tx for Hb < 7 or symptom ELEVATED LIPASE -CT on previous admission was unchanged from previous -Lipase elevated -was evaluated by GI and d/t lack of symptoms and alcohol abuse no intervention was recommended -monitor clinically diet advanced to low Na CODE STATUS: FULL CODE DVT PROPHYLAXIS: SCDs RE: anemia/thrombocytopenia DISPOSITION PT recommends re-evaluation in AM OT recommends return home - PT re eval in AM patient and fiance not agreeable with Rehab, would like to return home - immigration case worker to arrange for IV antibiotics at home Current Inpatient Medications: Current Inpatient Medications Medications (Trade) Dose Ordered Sig/Britany Route Start Time Stop Time Status Last Admin Dose Admin Lorazepam 1 mg 1 mg Q4 PRN IV 02/23/16 16:45 03/24/16 16:44 02/27/16 09:13 1 MG Lorazepam/Syringe (Ativan Inj/ Syringe) 1 ml @ 1 mls/min Q4H PRN IV 02/23/16 18:30 03/24/16 18:29 02/29/16 03:41 1 MLS/MIN Acetaminophen (Tylenol Tab) 325 mg Q6H PRN PO 02/24/16 04:15 03/25/16 04:14 02/29/16 00:52 325 MG Heparin Sodium (Porcine) (Heparin 10 Unit/ ml 5 ml Flush) 5 ml PRN PRN FLUSH 02/24/16 21:00 03/25/16 20:59 02/29/16 04:58 5 ML Albuterol/ Ipratropium (Duoneb) 3 ml Q2H PRN INH 02/24/16 23:45 03/25/16 23:44 02/25/16 00:25 3 ML Nicotine (Nicoderm Cq 21MG Patch) 1 patch QAM EXT 02/27/16 09:00 03/28/16 08:59 02/27/16 08:46 1 PATCH Miscellaneous (Remove Nicoderm Patch) 1 ea QAM N/A 02/27/16 09:00 03/28/16 08:59 02/29/16 07:47 1 EA Levalbuterol (Xopenex Hfa Inhaler) 2 puffs Q6R INH 02/27/16 15:00 03/28/16 14:59 02/29/16 16:04 2 PUFFS Menthol (Nice Sommer) 1 sommer PRN PRN PO 02/27/16 09:15 03/28/16 09:14 02/27/16 09:21 1 SOMMER Folic Acid (Folvite Tab) 1 mg QAM PO 02/28/16 08:00 03/29/16 08:59 02/29/16 07:58 1 MG Thiamine HCl 100 mg 100 mg QAM PO 02/28/16 08:00 03/29/16 08:59 02/29/16 07:58 100 MG Ertapenem/Sodium Chloride (Invanz IV/Nss Ad-Van 50ml) 50 ml @ 120 mls/hr Q24H IV 02/29/16 08:00 03/07/16 07:59 02/29/16 07:47 120 MLS/HR
[2016-02-29 19:28] LABS: HEMATOCRIT 24.7 % (37-47); MEAN CELL VOLUME 93.6 fL (80-100); MEAN CORPUSCULAR HEMOGLOBIN 32.6 pg (25-34); MEAN CORPUSCULAR HGB CONC 34.8 g/dl (32-36); RED BLOOD COUNT 2.64 M/uL (4.2-5.4); WHITE BLOOD COUNT 6.24 K/uL (4.8-10.8)
[2016-02-29 19:43] LABS: INR 1.5 (0.9-1.1); PROTHROMBIN TIME (PATIENT) 16.8 SECONDS (9.0-12.0)
[2016-02-29 19:55] LABS: BASO % 0.3 %; BASO ABS # 0.02 K/uL (0-0.2); COMPLETE YES; ECHINOCYTES 1+; EOS % 2.1 %; IG% 0.3 %; LYMPH % 22.8 %; LYMPH ABS # 1.42 K/uL (1.2-3.4); MEAN PLATELET VOLUME 9.8 fL (7.4-10.4); MONO % 5.8 %; NEUT % 68.7 %; PLATELET COUNT 91 K/uL (130-400); PLT ESTIMATE DECREASED; SCHISTOCYTES 1+
[2016-02-29 20:04] LABS: BUN/CREATININE RATIO 7.8 (10-20); CALCIUM 8.2 mg/dl (8.5-10.1); CREATININE 0.65 mg/dl (0.60-1.20); POTASSIUM 4.2 mmol/L (3.5-5.1)
[2016-02-29 23:41] VITALS: BP 107/67; PULSE 81; TEMP 36.8; O2SAT 95
[2016-03-01] MEDS ORDERED: LORAZEPAM 1 MG TAB PO STA (00:47)
[2016-03-01] MEDS: LEValbuterol HFA 15GM INHALER INH SCH ×2 (03:20→08:19)
[2016-03-01 08:00] VITALS: BP 103/64; PULSE 78; TEMP 36.6; O2SAT 95
[2016-03-01] MEDS: NICOTINE 21 MG/24 HR TDSY EXT SCH (08:00)
[2016-03-01] MEDS: THIAMINE HCL 100 MG TAB PO SCH (08:17)
[2016-03-01] MEDS: ERTAPENEM IV 1 GM in SODIUM CHLOR 0.9% AD-VAN 50ML 50 ML IV SCH (08:18)
[2016-03-01 08:42] LABS: BASO % 0.3 %; BASO ABS # 0.02 K/uL (0-0.2); COMPLETE YES; HEMATOCRIT 26.1 % (37-47); IG% 0.4 %; LYMPH % 29.7 %; LYMPH ABS # 2.04 K/uL (1.2-3.4); MEAN CELL VOLUME 91.3 fL (80-100); MEAN CORPUSCULAR HEMOGLOBIN 32.9 pg (25-34); MEAN PLATELET VOLUME 10.2 fL (7.4-10.4); MONO % 4.1 %; NEUT % 63.5 %; PLATELET COUNT 103 K/uL (130-400); RED BLOOD COUNT 2.86 M/uL (4.2-5.4); WHITE BLOOD COUNT 6.86 K/uL (4.8-10.8)
--- NOTE | 2016-03-01 09:14 | Progress Note ---
Medicine Progress Note Date & Time of Visit: Mar 01, 2016 at 09:03. Subjective patient seen with ANN MARIE Holloway and significant other Ezra at the bedside sitting up in bed, comfortable, alert, oriented denies cough, dyspnea, chest pain denies abdominal pain ,nausea/vomiting no other symptoms states she is ready and would like to go home today significant other agreeable with discharge today Objective Last 8 Hrs Date Time Temp Pulse Resp B/P Pulse Ox O2 Delivery O2 Flow Rate FiO2 03/01/16 08:00 36.6 78 20 103/64 95 Room Air Physical Exam: General- oriented to person and place, not in distress, speaks in sentences with no effort Eyes- (+) mild icterus Neck- no JVD Lungs- clear breath sounds bilaterally, no rales/wheezes Heart- normal rate, regular rhythm; no murmur Abdomen- normal bowel sounds, soft, nontender Extremities- no pretibial edema, no calf tenderness Neuro- alert, oriented x 2; no gross focal deficits Skin- warm & dry Laboratory Results: Last 24 Hours Test 02/29/16 19:15 03/01/16 07:45 White Blood Count 6.24 K/uL 6.86 K/uL Red Blood Count 2.64 M/uL 2.86 M/uL Hemoglobin 8.6 g/dL 9.4 g/dL Hematocrit 24.7 % 26.1 % Mean Corpuscular Volume 93.6 fL 91.3 fL Mean Corpuscular Hemoglobin 32.6 pg 32.9 pg Mean Corpuscular Hemoglobin Concent 34.8 g/dl 36.0 g/dl Platelet Count 91 K/uL 103 K/uL Mean Platelet Volume 9.8 fL 10.2 fL Neutrophils (%) (Auto) 68.7 % 63.5 % Lymphocytes (%) (Auto) 22.8 % 29.7 % Monocytes (%) (Auto) 5.8 % 4.1 % Eosinophils (%) (Auto) 2.1 % 2.0 % Basophils (%) (Auto) 0.3 % 0.3 % Neutrophils # (Auto) 4.29 K/uL 4.35 K/uL Lymphocytes # (Auto) 1.42 K/uL 2.04 K/uL Monocytes # (Auto) 0.36 K/uL 0.28 K/uL Eosinophils # (Auto) 0.13 K/uL 0.14 K/uL Basophils # (Auto) 0.02 K/uL 0.02 K/uL RDW Standard Deviation 58.8 fL 57.3 fL RDW Coefficient of Variation 17.1 % 17.3 % Immature Granulocyte % (Auto) 0.3 % 0.4 % Immature Granulocyte # (Auto) 0.02 K/uL 0.03 K/uL Platelet Estimate DECREASED Echinocytes 1+ Schistocytes 1+ Prothrombin Time 16.8 SECONDS Prothromb Time International Ratio 1.5 Sodium Level 142 mmol/L Potassium Level 4.2 mmol/L Chloride Level 108 mmol/L Carbon Dioxide Level 25 mmol/L Anion Gap 9.0 mmol/L Blood Urea Nitrogen 5 mg/dl Creatinine 0.65 mg/dl Est Creatinine Clear Calc Drug Dose 95.1 ml/min Estimated GFR () 115.8 Estimated GFR (Non- 99.9 BUN/Creatinine Ratio 7.8 Random Glucose 96 mg/dl Calcium Level 8.2 mg/dl Magnesium Level 2.0 mg/dl Total Bilirubin 5.8 mg/dl Direct Bilirubin 5.0 mg/dl Aspartate Amino Transf (AST/SGOT) 61 U/L Alanine Aminotransferase (ALT/SGPT) 20 U/L Alkaline Phosphatase 284 U/L Total Protein 5.3 gm/dl Albumin 2.2 gm/dl Assessment & Plan SEPSIS secondary to UTI, E coli , Possible Pneumonia - Admitted on 02/16/16 for possible sepsis, alcoholic hepatitis Urine cx on 02/16/16 -E coli ESBL -resistant to Cipro/Levaquin . sensitive to Imipenem , Invanz Discharged home with IV Invanz on 02/22/16 Returned to ED within 24 hrs with fever , confusion , sepsis on 02/23/16 - repeat Blood cultures, sputum cultures no growth Chest Xray: (+) Small parenchymal infiltrate both lung bases combined with small bilateral pleural effusions. -ID consulted for further recommendations was given Zosyn, Imipenem IV, with clinical improvement ID recommend to continue Ertapenem IV daily via PICC line until 03/05/16 ff up with ID in 1 week other work up: -MRSA screen negative C diff negative Hepatitis panel -negative METABOLIC ENCEPHALOPATHY, Resolved - likely due to sepsis - CT head: no acute process Ammonia level 28 CHRONIC LIVER DISEASE/CIRRHOSIS - secondary to Alcoholic liver disease -MELD score is 19 with Maddrey score of 25 -presented with Total Bili 7.9, Direct Bili 5.7, AST 91, ALT 23, Alk Phos 245 -due to sepsis -GI consult placed, no steroid for possible alcoholic hepatitis due to active infection -recommend cont supportive management , abstinence from alcohol close ff up with GI for further work up as outpatient ANEMIA/THROMBOCYTOPENIA/COAGULOPATHY -due to alcoholic liver disease -no signs of active bleeding - Hg stable around 9, Plt 90-100s, INR 1.5 - Avoid anticoagulation/NSAIDs ALCOHOL ABUSE -Alcohol level normal, denies alcohol use since between discharge and re- admission -thiamine, Folate PO - Ativan PRN ordered - no signs of withdrawal observed ELEVATED LIPASE -CT on previous admission was unchanged from previous -Lipase elevated -was evaluated by GI and d/t lack of symptoms and alcohol abuse, no intervention was recommended diet advanced to low Na CODE STATUS: FULL CODE DISPOSITION patient to be discharged to home with home health/PT today needs to complete Ertapenem IV daily until 03/05/15 ff up with PCP in 3-5 days, GI in 1-2 weeks, ID in week discussed with patient and significant other, they are agreeable and comfortable with discharge plan Current Inpatient Medications: Current Inpatient Medications Medications (Trade) Dose Ordered Sig/Britany Route Start Time Stop Time Status Last Admin Dose Admin Lorazepam 1 mg 1 mg Q4 PRN IV 02/23/16 16:45 03/24/16 16:44 02/27/16 09:13 1 MG Lorazepam/Syringe (Ativan Inj/ Syringe) 1 ml @ 1 mls/min Q4H PRN IV 02/23/16 18:30 03/24/16 18:29 02/29/16 03:41 1 MLS/MIN Heparin Sodium (Porcine) (Heparin 10 Unit/ ml 5 ml Flush) 5 ml PRN PRN FLUSH 02/24/16 21:00 03/25/16 20:59 02/29/16 04:58 5 ML Albuterol/ Ipratropium (Duoneb) 3 ml Q2H PRN INH 02/24/16 23:45 03/25/16 23:44 02/25/16 00:25 3 ML Nicotine (Nicoderm Cq 21MG Patch) 1 patch QAM EXT 02/27/16 09:00 03/28/16 08:59 02/27/16 08:46 1 PATCH Miscellaneous (Remove Nicoderm Patch) 1 ea QAM N/A 02/27/16 09:00 03/28/16 08:59 02/29/16 07:47 1 EA Levalbuterol (Xopenex Hfa Inhaler) 2 puffs Q6R INH 02/27/16 15:00 03/28/16 14:59 03/01/16 08:19 2 PUFFS Menthol (Nice Sommer) 1 sommer PRN PRN PO 02/27/16 09:15 03/28/16 09:14 02/27/16 09:21 1 SOMMER Folic Acid (Folvite Tab) 1 mg QAM PO 02/28/16 08:00 03/29/16 08:59 03/01/16 08:18 1 MG Thiamine HCl 100 mg 100 mg QAM PO 02/28/16 08:00 03/29/16 08:59 03/01/16 08:17 100 MG Ertapenem/Sodium Chloride (Invanz IV/Nss Ad-Van 50ml) 50 ml @ 120 mls/hr Q24H IV 02/29/16 08:00 03/07/16 07:59 03/01/16 08:18 120 MLS/HR
[2016-03-01] MEDS ORDERED: ERTA1INJ IV (09:17)
[2016-03-01] MEDS ORDERED: Levalbuterol INH (09:17)
[2016-03-01 09:19] LABS: BUN/CREATININE RATIO 10.9 (10-20); CALCIUM 8.8 mg/dl (8.5-10.1); CREATININE 0.56 mg/dl (0.60-1.20); MAGNESIUM 1.9 mg/dl (1.8-2.4); POTASSIUM 3.9 mmol/L (3.5-5.1)
--- NOTE | 2016-03-01 09:33 | Discharge Instructions ---
Discharge Instructions Admission Reason for Admission: Encephalopathy, Sepsis Discharge Discharge Diagnosis / Problem: Sepsis secondary to Urinary Tract Infection, Pneumonia Discharge Goals Goal(s): Diagnostic testing, Therapeutic intervention Activity Recommendations Activity Limitations: as noted below (no heavy exertion until re-evaluated by Primary Care Physician) Driving or Machine Use: no driving until re-evaluated by Primary Care Physician . Instructions / Follow-Up Instructions / Follow-Up PLEASE COMPLETE COURSE OF ANTIBIOTICS DIRECTED. NO ALCOHOL. PLEASE FOLLOW UP WITH DR. FOFANA ON Sunday03/03/15 AT 10:10AM. FOLLOW UP WITH INFECTIOUS DISEASE CLINIC AT [facility] IN 1 WEEK. TEL. NO . RETURN TO ER IMMEDIATELY IF WITH RECURRENCE OF SYMPTOMS, FEVER, CHILLS, CONFUSION, ABDOMINAL PAIN, NAUSEA/VOMITING, WEAKNESS, INCREASE IN YELLOW COLOR OF EYES/SKIN, BLACK OR BLOOD IN THE STOOLS. NO NSAIDS- INCLUDING IBUPROFEN, NAPROXEN AND BLOOD THINNERS. CONSULT WITH YOUR DOCTOR FIRST PRIOR TO STARTING ANY NEW MEDICATION. Current Hospital Diet Patient's current hospital diet: Low Sodium Diet (2gm Na) Discharge Diet Recommended Diet: Low Sodium Diet (2gm Na) Pending Studies Studies pending at discharge: yes List of pending studies: Repeat blood work: CBC, PRP, Liver Profile Medical Emergencies . Who to Call and When: Medical Emergencies: If at any time you feel your situation is an emergency, please call 911 immediately. . Non-Emergent Contact Non-Emergency issues call your: Primary Care Provider Call Non-Emergent contact if: you have a fever, your pain is not controlled, you have any medication questions . Past History Medical & Surgical History: (1) Sepsis (2) Encephalopathy (3) Hyperbilirubinemia (4) Nausea, vomiting, and diarrhea (5) Elevated liver enzymes (6) S/P section (7) H/O colonoscopy (8) Hx of tonsillectomy (9) History of esophagogastroduodenoscopy (EGD) . "Provider Documentation" section prepared by Cosmo Schmid. VTE Core Measure Inpt VTE Proph given/why not?: Mulugeta Ortiz, SCD's
--- NOTE | 2016-03-01 09:37 | Discharge Summary ---
Discharge Summary Admission Date: Feb 23, 2016 at 15:59 Discharge Date: Mar 01, 2016 Discharge Disposition: Home with services Principal Diagnosis: SEPSIS secondary to UTI, E coli , Possible Pneumonia Secondary Diagnoses/Problems: Please refer to hospital course below. Consultations: Gastroenterology, Infectious Disease Pending Studies/Follow-Up: Repeat CBC, PRP, Liver profile; Refer to GI Medication Reconciliation New Medications: [Levalbuterol] () INH 2 PUFFS INH Q6R for 7 Days, #1 INHALER 2 Refills Continued Medications: Ertapenem Sodium (Invanz) 1 Gm Inj 1 GM IV DAILY for 4 Days, VIAL (This prescription has been renewed) Folic Acid (Folvite) 1 Mg Tab 1 MG PO DAILY, TAB Lorazepam (Lorazepam) 1 Mg Tab 1 MG PO TID PRN for Anxiety Thiamine HCl (Vitamin B-1) 100 Mg Tab 100 MG PO DAILY for 30 Days, #30 TAB 5 Refills Discontinued Medications: Atenolol (Atenolol) 25 Mg Tab 0.5 TABS PO DAILY for 30 Days, #15 TABS 6 Refills Admission Information HPI (per Admitting provider): Patient seen and examined. 56 year old female with PMHx of alcohol abuse, chronic liver disease, anziety, depression and other problems listed below presents to the ED with AMS/lethargy. History is some what unclear. Patient was discharged from this hospital yesterday after being admitted for alcohol withdrawal and sepsis/UTI. Urine culture grew E.coli ESBL and ID was consulted and patient was discharged on Invanz IV as an outpatient for 14 days. Alcohol withdrawal protocol was followed and after patient was deemed stable she was discharged home yesterday. Per ED physician patient was apparently lethargic and altered this AM and family called EMS to bring her to the ED. Patient reports that she has just been sleeping since discharge. She states that she fell in the bath tub this morning when she tripped over a roll of toilet paper. She denies hitting her head. She reports she has been coughing more than usual. She denies fevers, chills, chest pain, SOB, nausea, vomiting, diarrhea, dysuria , calf pain and edema. She denies that she started drinking alcohol again. In the ED patient is tachycardic and febrile. BP is stable. WBC count is 12K, LFTs have worsened since yesterday.. CXR shows possible pneumonia. Cultures were drawn and patient was started on Levaquin and Zosyn. She will be admitted for further workup and treatment. Physical Exam (per Admitting): General Appearance: + pertinent finding (Chronically ill appearing 56 year old female lying in bed in NAD ) Head: normocephalic, atraumatic Eyes: EOMI, + pertinent finding (scleral icterus ) ENT: hearing grossly normal, pharynx normal Neck: supple, no JVD Respiratory/Chest: chest non-tender, no respiratory distress, no accessory muscle use, + crackles (BL bases ) Cardiovascular: no edema, no gallop, no JVD, no murmur, normal peripheral pulses, + tachycardia (low 100s, regular ) Abdomen/GI: normal bowel sounds, non tender, soft, + distended Back: normal inspection, no muscle spasm Extremities/Musculoskelatal: no calf tenderness, normal capillary refill, normal range of motion Neurologic/Psych: + pertinent finding (Alert, oriented x3, no asterixis, strength and sensation equal and intact in all extremities ) Skin: normal color, warm/dry, no rash Lymphatic: no adenopathy Hospital Course SEPSIS secondary to UTI, E coli , Possible Pneumonia - Admitted on 02/16/16 for possible sepsis, alcoholic hepatitis Urine cx on 02/16/16 -E coli ESBL -resistant to Cipro/Levaquin . sensitive to Imipenem , Invanz Discharged home with IV Invanz on 02/22/16 Returned to ED within 24 hrs with fever , confusion , sepsis on 02/23/16 - repeat Blood cultures, sputum cultures no growth Chest Xray: (+) Small parenchymal infiltrate both lung bases combined with small bilateral pleural effusions. -ID consulted for further recommendations was given Zosyn, Imipenem IV, with clinical improvement ID recommend to continue Ertapenem IV daily via PICC line until 03/05/16 ff up with ID in 1 week other work up: -MRSA screen negative C diff negative Hepatitis panel -negative METABOLIC ENCEPHALOPATHY, Resolved - likely due to sepsis - CT head: no acute process Ammonia level 28 CHRONIC LIVER DISEASE/CIRRHOSIS - secondary to Alcoholic liver disease -MELD score is 19 with Maddrey score of 25 -presented with Total Bili 7.9, Direct Bili 5.7, AST 91, ALT 23, Alk Phos 245 -due to sepsis -GI consult placed, no steroid for possible alcoholic hepatitis due to active infection -recommend cont supportive management , abstinence from alcohol close ff up with GI for further work up as outpatient - Atenolol discontinued due to marginal BP ANEMIA/THROMBOCYTOPENIA/COAGULOPATHY -due to alcoholic liver disease -no signs of active bleeding - Hg stable around 9, Plt 90-100s, INR 1.5 - Avoid anticoagulation/NSAIDs ALCOHOL ABUSE -Alcohol level normal, denies alcohol use since between discharge and re- admission -thiamine, Folate PO - Ativan PRN ordered - no signs of withdrawal observed ELEVATED LIPASE -CT on previous admission was unchanged from previous -Lipase elevated -was evaluated by GI and d/t lack of symptoms and alcohol abuse, no intervention was recommended diet advanced to low Na CODE STATUS: FULL CODE DISPOSITION patient to be discharged to home with home health/PT today needs to complete Ertapenem IV daily until 03/05/15 ff up with PCP in 3-5 days, GI in 1-2 weeks, ID in week discussed with patient and significant other, they are agreeable and comfortable with discharge plan Total time spent on discharge = 40 MINUTES This includes examination of the patient, discharge planning, medication reconciliation, and communication with other providers. Discharge Instructions Discharge Instructions Admission Reason for Admission: Encephalopathy, Sepsis Discharge Discharge Diagnosis / Problem: Sepsis secondary to Urinary Tract Infection, Pneumonia Discharge Goals Goal(s): Diagnostic testing, Therapeutic intervention Activity Recommendations Activity Limitations: as noted below (no heavy exertion until re-evaluated by Primary Care Physician) Driving or Machine Use: no driving until re-evaluated by Primary Care Physician . Instructions / Follow-Up Instructions / Follow-Up PLEASE COMPLETE COURSE OF ANTIBIOTICS DIRECTED. NO ALCOHOL. PLEASE FOLLOW UP WITH DR. FOFANA ON Sunday03/03/15 AT 10:10AM. FOLLOW UP WITH INFECTIOUS DISEASE CLINIC AT [facility] IN 1 WEEK. TEL. NO . RETURN TO ER IMMEDIATELY IF WITH RECURRENCE OF SYMPTOMS, FEVER, CHILLS, CONFUSION, ABDOMINAL PAIN, NAUSEA/VOMITING, WEAKNESS, INCREASE IN YELLOW COLOR OF EYES/SKIN, BLACK OR BLOOD IN THE STOOLS. NO NSAIDS- INCLUDING IBUPROFEN, NAPROXEN AND BLOOD THINNERS. CONSULT WITH YOUR DOCTOR FIRST PRIOR TO STARTING ANY NEW MEDICATION. Current Hospital Diet Patient's current hospital diet: Low Sodium Diet (2gm Na) Discharge Diet Recommended Diet: Low Sodium Diet (2gm Na) Pending Studies Studies pending at discharge: yes List of pending studies: Repeat blood work: CBC, PRP, Liver Profile Medical Emergencies . Who to Call and When: Medical Emergencies: If at any time you feel your situation is an emergency, please call 911 immediately. . Non-Emergent Contact Non-Emergency issues call your: Primary Care Provider Call Non-Emergent contact if: you have a fever, your pain is not controlled, you have any medication questions . Past History Medical & Surgical History: (1) Sepsis (2) Encephalopathy (3) Hyperbilirubinemia (4) Nausea, vomiting, and diarrhea (5) Elevated liver enzymes (6) S/P section (7) H/O colonoscopy (8) Hx of tonsillectomy (9) History of esophagogastroduodenoscopy (EGD) . "Provider Documentation" section prepared by Cosmo Schmid. VTE Core Measure Inpt VTE Proph given/why not?: Mulugeta Ortiz, SCD's
[2016-03-01 10:35] VITALS: BP 103/64; PULSE 78; TEMP 36.6; O2SAT 95
[2017-01-17] MEDS ORDERED: THIA100T11 PO (06:02)
[2017-01-17] MEDS ORDERED: FOLI1TAB8 PO (08:46)
[2017-01-17] MEDS ORDERED: LSX20 PO (09:29)
[2017-01-17] MEDS ORDERED: POTA550T4 PO (14:49)
[2017-01-17] MEDS ORDERED: ASCO10003 PO (14:49)
[2017-01-19] MEDS ORDERED: TPRSR50 PO (11:54)
== END 2016-03-01 11:07 | disposition home health service (06) | DRG 871 ==
LOC: ENRESERVTM → ENRESERVDT → EDBD 12:34 → EDUNIT# 12:34 → C.EDB 12:35 → UNDOADMIN 15:59 → C.2T 15:59 → C.MS4W 02-27 17:16
PROVIDERS: ADMIT Hospitalist; ATTEND Internal Medicine
DX: A41.9 Sepsis, unspecified organism (principal); J69.0 Pneumonitis due to inhalation of food and vomit; G93.41 Metabolic encephalopathy; N39.0 Urinary tract infection, site not specified; E87.0 Hyperosmolality and hypernatremia; D68.9 Coagulation defect, unspecified; F10.188 Alcohol abuse with other alcohol-induced disorder; B96.20 Unspecified Escherichia coli [E. coli] as the cause of diseases classified elsewhere; I10 Essential (primary) hypertension; K70.10 Alcoholic hepatitis without ascites; R74.8 Abnormal levels of other serum enzymes; K70.30 Alcoholic cirrhosis of liver without ascites; K72.90 Hepatic failure, unspecified without coma; D64.9 Anemia, unspecified; D69.6 Thrombocytopenia, unspecified; F41.9 Anxiety disorder, unspecified; F32.9 Major depressive disorder, single episode, unspecified; Z87.891 Personal history of nicotine dependence; Z79.899 Other long term (current) drug therapy

== ENCOUNTER 2016-09-01 05:28 | Emergency (ER) | payer BC, OTHER ==
[~2016-09-01] VITALS: Ht 170.2 cm; Wt 70.2 kg
[~2016-09-01 05:28] MED LIST changes: +ATV1 PO; +FOLI1TAB7 PO; +Levalbuterol INH; -TNR25 PO
[2016-09-01 05:35] VITALS: TEMP 36.6; Ht 170.2 cm; Wt 70.2 kg
[2016-09-01] MEDS ORDERED: THIA100T11 PO (06:02)
[2016-09-01] MEDS ORDERED: GLUC10007 PO (06:02)
[2016-09-01] MEDS ORDERED: ATEN-173 PO (06:02)
[2016-09-01] MEDS ORDERED: HYDR-3124 PO (06:02)
--- NOTE | 2016-09-01 06:05 | EMERGENCY ROOM VISIT NOTE ---
History First contact with patient: 05:40 Chief Complaint: SWELLING TO EXTREMITY Stated Complaint: LEG SWELLING History of Present Illness The patient is a 56 year old female who presents to the Emergency Room with complaints of bilateral leg swelling. The patient states that she was hospitalized last winter due to pneumonia and sepsis. After discharge, she began to have difficulty with leg swelling. She states that she typically wears compression hose but has not been wearing them for the past 2 weeks. She has had increased swelling in both of her legs, worse in the right leg. She occasionally has shooting pains up her calves. She has been elevating the legs with some relief. The patient reports a history of kidney issues. She rates her discomfort a 4/10. She denies any chest pain or shortness of breath. Review of Systems A complete 10 point review of systems was reviewed with the patient with pertinent positives and negatives as per history of present illness. All else were negative. Past Medical/Surgical History Medical Problems: (1) Alcohol abuse (2) Alcohol intoxication (3) Anxiety State Nos (4) Depression (5) Encephalopathy (6) HTN (hypertension) (7) Hypertension Nos (8) Sepsis (9) Tobacco abuse (10) Tobacco Use Disorder Surgical Problems: (1) H/O colonoscopy (2) History of esophagogastroduodenoscopy (EGD) (3) Hx of tonsillectomy (4) S/P section Family History FH: leukemia Hypertension Social History Smoking Status: Current Every Day Smoker Alcohol Use: heavy Marital Status: single Housing Status: lives with family Occupation Status: employed Current/Historical Medications Scheduled Folic Acid (Folvite), 1 MG PO DAILY Glucosamine Sulfate (Glucosamine), Unknown Dose PO DAILY Thiamine Hcl (Vitamin B-1), 100 MG PO DAILY Scheduled PRN Atenolol (Tenormin), 25 MG PO DAILY PRN for Anxiety/Agitation Hydroxyzine Hcl (Atarax), 25 MG PO Q6H PRN for Itching Lorazepam (Lorazepam), 1 MG PO TID PRN for Anxiety Allergies Coded Allergies: Iodinated Diagnostic Agents (Verified Allergy, Unknown, ., 09/01/16) Gabapentin (Verified Adverse Reaction, Intermediate, MOOD CHANGES, 09/01/16) Physical Exam Vital Signs Date Time Temp Pulse Resp B/P (MAP) Pulse Ox O2 Delivery O2 Flow Rate FiO2 09/01/16 08:03 89 18 134/89 96 09/01/16 05:35 36.6 88 20 128/76 97 Room Air Physical Exam VITALS: Vitals are noted on the nurse's note and reviewed by myself. Vital signs stable. GENERAL: This is a 56-year-old female, in no acute distress, nondiaphoretic, well-developed well-nourished. HEART: Regular rate and rhythm without murmurs gallops or rubs. LUNGS: Clear to auscultation bilaterally without wheezes, rales or rhonchi. No retractions or accessory muscle use. EXTREMITIES: 1+ pitting edema to bilateral lower extremities. Swelling is slightly worse in the right leg. No erythema, warmth or palpable cords. No tenderness to palpation. Dorsalis pedis pulses 2+ bilaterally. NEURO: Patient was alert and oriented to person place and time. Medical Decision & Procedures ER Provider Diagnostic Interpretation: BILATERAL LOWER EXTREMITY VENOUS DOPPLER FINDINGS: There is normal compressibility, flow, and augmentation within the bilateral lower extremity deep venous systems. IMPRESSION: No DVT within the right or left lower extremity. Laboratory Results 09/01/16 06:06 Red Blood Count 3.33, Mean Corpuscular Volume 91.0, Mean Corpuscular Hemoglobin 30.9, Mean Corpuscular Hemoglobin Concent 34.0, Mean Platelet Volume 8.6, Neutrophils (%) (Auto) 60.3, Lymphocytes (%) (Auto) 26.5, Monocytes (%) (Auto) 6.4, Eosinophils (%) (Auto) 6.2, Basophils (%) (Auto) 0.2, Neutrophils # (Auto) 3.12, Lymphocytes # (Auto) 1.37, Monocytes # (Auto) 0.33, Eosinophils # (Auto) 0.32, Basophils # (Auto) 0.01 09/01/16 06:06 Test 09/01/16 06:06 White Blood Count 5.17 K/uL (4.8-10.8) Red Blood Count 3.33 M/uL (4.2-5.4) Hemoglobin 10.3 g/dL (12.0-16.0) Hematocrit 30.3 % (37-47) Mean Corpuscular Volume 91.0 fL (80-100) Mean Corpuscular Hemoglobin 30.9 pg (25-34) Mean Corpuscular Hemoglobin Concent 34.0 g/dl (32-36) Platelet Count 73 K/uL (130-400) Mean Platelet Volume 8.6 fL (7.4-10.4) Neutrophils (%) (Auto) 60.3 % Lymphocytes (%) (Auto) 26.5 % Monocytes (%) (Auto) 6.4 % Eosinophils (%) (Auto) 6.2 % Basophils (%) (Auto) 0.2 % Neutrophils # (Auto) 3.12 K/uL (1.4-6.5) Lymphocytes # (Auto) 1.37 K/uL (1.2-3.4) Monocytes # (Auto) 0.33 K/uL (0.11-0.59) Eosinophils # (Auto) 0.32 K/uL (0-0.5) Basophils # (Auto) 0.01 K/uL (0-0.2) RDW Standard Deviation 52.7 fL (36.4-46.3) RDW Coefficient of Variation 15.7 % (11.5-14.5) Immature Granulocyte % (Auto) 0.4 % Immature Granulocyte # (Auto) 0.02 K/uL (0.00-0.02) Platelet Estimate DECREASED Ovalocytes 2+ Anion Gap 9.0 mmol/L (3-11) Est Creatinine Clear Calc Drug Dose 71.1 ml/min Estimated GFR () 86.9 Estimated GFR (Non- 75.0 BUN/Creatinine Ratio 13.3 (10-20) Calcium Level 9.4 mg/dl (8.5-10.1) ED Course The patient was evaluated as above. Labs were drawn and IV access was obtained. Patient was reevaluated and findings were discussed. Discharge instructions were reviewed with the patient. The patient verbalized understanding of my assessment and treatment plan and was discharged home in good condition. Medical Decision Differential diagnosis includes DVT, CHF, peripheral vascular disease, among others. The patient is a 56-year-old female who presents today complaining of leg swelling. Exam does show 1+ pitting edema bilaterally. Labs were unremarkable. Ultrasound of the lower extremities was performed and showed no evidence of DVT. The patient was encouraged to elevate her legs and wear the compression stockings for swelling. She was instructed to follow-up with her primary care provider for further evaluation of these symptoms. Based on the patient's presentation and work up, I feel the patient is stable for outpatient treatment. The patient was educated to return to the emergency department for any worsening of their current condition or new/concerning symptoms. She will follow up with her PCP. Medication reconciliation: I attest that I have personally reviewed the patient 's current medication list. Blood Pressure Screening: Patient was found to have a slightly elevated blood pressure due to circumstances. I do not believe that the patient requires hypertension monitoring. Impression Primary Impression: Edema, lower extremity Departure Information Dispostion Home / Self-Care Condition GOOD Referrals Kai Sarmiento, D.O. (PCP) Patient Instructions My [facility] Additional Instructions Elevate your legs and wear the compression stockings for swelling. Follow-up with your primary care provider this week for further evaluation. Return here for any new/concerning symptoms.
[2016-09-01 06:29] LABS: BUN/CREATININE RATIO 13.3 (10-20); CALCIUM 9.4 mg/dl (8.5-10.1); CREATININE 0.87 mg/dl (0.60-1.20); POTASSIUM 3.6 mmol/L (3.5-5.1)
[2016-09-01 06:43] LABS: HEMATOCRIT 30.3 % (37-47); MEAN CORPUSCULAR HEMOGLOBIN 30.9 pg (25-34); MEAN PLATELET VOLUME 8.6 fL (7.4-10.4); PLATELET COUNT 73 K/uL (130-400); RED BLOOD COUNT 3.33 M/uL (4.2-5.4); WHITE BLOOD COUNT 5.17 K/uL (4.8-10.8)
[2016-09-01 06:51] LABS: BASO % 0.2 %; BASO ABS # 0.01 K/uL (0-0.2); COMPLETE YES; EOS % 6.2 %; IG% 0.4 %; LYMPH % 26.5 %; LYMPH ABS # 1.37 K/uL (1.2-3.4); MONO % 6.4 %; NEUT % 60.3 %; OVALOCYTES 2+; PLT ESTIMATE DECREASED
--- NOTE | 2016-09-01 07:00 | DIAGNOSTIC IMAGING REPORT ---
BILATERAL LOWER EXTREMITY VENOUS DOPPLER HISTORY: Pain. Edema. b/l leg swelling, pain COMPARISON STUDY: None. FINDINGS: There is normal compressibility, flow, and augmentation within the bilateral lower extremity deep venous systems. IMPRESSION: No DVT within the right or left lower extremity. Electronically signed by: Ajay Randall M.D. 09/01/2016 6:59 AM Dictated Date/Time: 09/01/2016 6:58 AM
[2016-09-01 08:03] VITALS: BP 134/89; PULSE 89; O2SAT 96
== END 2016-09-01 08:04 | disposition home or self-care (01) ==
LOC: C.EDB 05:28 → C.EDA 08:04
DX: R60.0 Localized edema (principal); M79.605 Pain in left leg; M79.604 Pain in right leg; I10 Essential (primary) hypertension; F17.210 Nicotine dependence, cigarettes, uncomplicated; F10.10 Alcohol abuse, uncomplicated

== ENCOUNTER 2017-01-11 07:28 | Emergency (ER) | payer OTHER, BC ==
[~2017-01-11] VITALS: Ht 167.6 cm; Wt 74.7 kg
[~2017-01-11 07:28] MED LIST changes: +ATEN-173 PO; -ERTA1INJ IV; +GLUC10007 PO; +HYDR-3124 PO; -Levalbuterol INH; +THIA100T11 PO; -THM100 PO
[2017-01-11 07:31] VITALS: TEMP 36.8; Ht 167.6 cm; Wt 74.7 kg
[2017-01-11] MEDS ORDERED: DiphenhydrAMINE HCL 50 MG/ML VIAL IV STA (07:45)
[2017-01-11] MEDS ORDERED: METHYLPREDNISOLONE 125 MG VIAL IV STA (07:45)
[2017-01-11] MEDS ORDERED: OPTIRAY 320 IV PRN (08:15)
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
[2017-01-11] MEDS ORDERED: LSX20 PO (09:29)
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
[2017-01-11 09:56] LABS: BUN/CREATININE RATIO 16.2 (10-20); CALCIUM 9.2 mg/dl (8.5-10.1); CREATININE 0.75 mg/dl (0.60-1.20); PHOSPHORUS 3.2 mg/dl (2.5-4.9); POTASSIUM 3.6 mmol/L (3.5-5.1)
[2017-01-11] MEDS ORDERED: CYCL10TA6 PO (10:26)
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
[2017-01-11 11:11] VITALS: BP 128/72; PULSE 84; O2SAT 97
== END 2017-01-11 11:14 | disposition home or self-care (01) ==
LOC: C.EDB 07:29 → C.EDA 11:14
DX: S16.1XXA Strain of muscle, fascia and tendon at neck level, initial encounter (principal); V43.52XA Car driver injured in collision with other type car in traffic accident, initial encounter; Y93.89 Activity, other specified; Y99.8 Other external cause status; I10 Essential (primary) hypertension; F17.200 Nicotine dependence, unspecified, uncomplicated; Z98.891 History of uterine scar from previous surgery; Z90.89 Acquired absence of other organs; Z98.890 Other specified postprocedural states; Z82.49 Family history of ischemic heart disease and other diseases of the circulatory system; Z80.6 Family history of leukemia

== ENCOUNTER 2017-01-16 12:38 | Emergency (ER) | payer OTHER, BC ==
[~2017-01-16] VITALS: Ht 170.2 cm; Wt 73.1 kg
[~2017-01-16 12:38] MED LIST changes: -ATV1 PO; +CYCL10TA6 PO; -FOLI1TAB7 PO; -GLUC10007 PO; -THIA100T11 PO
[2017-01-16 12:44] VITALS: TEMP 36.7; Ht 170.2 cm; Wt 73.1 kg
[2017-01-16] MEDS ORDERED: SODIUM CHLORIDE 0.9% 1000ML 1,000 ML IV STA (12:56)
[2017-01-16] MEDS ORDERED: THIAMINE HCL 100 MG/ML 2 ML VIAL IV STA (12:56)
[2017-01-16 13:02] VITALS: O2SAT 98
[2017-01-16 13:19] LABS: URINE APPEARANCE CLEAR (CLEAR); URINE BILIRUBIN NEG (NEG); URINE COLOR YELLOW; URINE NITRITE NEG (NEG); URINE SPECIFIC GRAVITY 1.008 (1.000-1.030); UROBILINOGEN NEG (NEG)
[2017-01-16 13:20] LABS: MANUAL MICROSCOPIC REQUIRED? NO; REVIEW REQ? NO
[2017-01-16 13:21] LABS: BASO % 0.5 %; BASO ABS # 0.04 K/uL (0-0.2); COMPLETE YES; EOS % 5.5 %; IG% 0.3 %; LYMPH % 28.2 %; LYMPH ABS # 2.16 K/uL (1.2-3.4); MEAN CELL VOLUME 91.6 fL (80-100); MEAN CORPUSCULAR HEMOGLOBIN 30.2 pg (25-34); MEAN CORPUSCULAR HGB CONC 32.9 g/dl (32-36); MEAN PLATELET VOLUME 9.7 fL (7.4-10.4); NEUT % 59.5 %; PLATELET COUNT 72 K/uL (130-400); RED BLOOD COUNT 3.71 M/uL (4.2-5.4); WHITE BLOOD COUNT 7.67 K/uL (4.8-10.8)
[2017-01-16 13:27] LABS: INR 1.2 (0.9-1.1); PARTIAL THROMBOPLASTIN RATIO 1.2; PROTHROMBIN TIME (PATIENT) 12.7 SECONDS (9.0-12.0)
--- NOTE | 2017-01-16 13:39 | DIAGNOSTIC IMAGING REPORT ---
CT SCAN OF THE BRAIN WITHOUT IV CONTRAST CLINICAL HISTORY: Change in mental status. Weakness. COMPARISON STUDY: CT of the brain dated 01/11/2017 and 02/23/2016. TECHNIQUE: Unenhanced axial CT scan of the brain is performed from the vertex to the skull base. CT DOSE: 537.48 mGy.cm FINDINGS: Brain parenchyma: There is mild subcortical and periventricular microangiopathic change. There is no hemorrhage, mass effect, or evidence of acute territorial ischemia by CT criteria. Tim-white matter is preserved. No extra-axial fluid collection is seen. Ventricles, sulci, cisterns: Prominent secondary to involutional change. Intracranial vasculature: There is atherosclerotic calcification of the cavernous carotid and vertebral arteries. Calvarium: Unremarkable. Sinuses and mastoids: The visualized paranasal sinuses are clear. There are small mastoid effusions. Orbits: The bony orbits are grossly intact. IMPRESSION: There is no hemorrhage, mass effect, or evidence of acute territorial ischemia by CT criteria. Electronically signed by: Michael Rubio M.D. 01/16/2017 1:37 PM Dictated Date/Time: 01/16/2017 1:35 PM
[2017-01-16 13:42] LABS: BENZODIAZEPINE, URINE NEG (NEG); COCAINE,URINE NEG (NEG); PHENCYCLIDINE, URINE NEG (NEG)
[2017-01-16 13:44] LABS: ALT/SGPT 43 U/L (12-78); AST/SGOT 70 U/L (15-37); BLOOD UREA NITROGEN 9 mg/dl (7-18); BUN/CREATININE RATIO 15.3 (10-20); CALCIUM 8.9 mg/dl (8.5-10.1); CARBON DIOXIDE 23 mmol/L (21-32); CHLORIDE 108 mmol/L (98-107); CREATININE 0.62 mg/dl (0.60-1.20); GLUCOSE 95 mg/dl (70-99); MAGNESIUM 2.2 mg/dl (1.8-2.4); POTASSIUM 3.6 mmol/L (3.5-5.1); SODIUM 140 mmol/L (136-145)
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
[2017-01-16 13:52] LABS: ALKALINE PHOSPHATASE 270 U/L (45-117)
--- NOTE | 2017-01-16 13:57 | DIAGNOSTIC IMAGING REPORT ---
CHEST ONE VIEW PORTABLE CLINICAL HISTORY: Altered mental status. Weakness. COMPARISON STUDY: 02/24/2016 FINDINGS: The heart is at the upper limits of normal in size. There is no failure. There is no focal pulmonary consolidation. There are no pleural effusions.[ IMPRESSION: No active disease in the chest. Electronically signed by: Robinson Mora M.D. 01/16/2017 1:56 PM Dictated Date/Time: 01/16/2017 1:55 PM
[2017-01-16] MEDS ORDERED: BIOT1POW3 PO (14:49)
[2017-01-16 15:47] VITALS: BP 159/93; PULSE 129; O2SAT 97
[2017-01-17] MEDS ORDERED: THIA100T11 PO (06:02)
[2017-01-17] MEDS ORDERED: FOLI1TAB7 PO (08:46)
[2017-01-17] MEDS ORDERED: LSX20 PO (09:29)
[2017-01-17] MEDS ORDERED: POTA550T4 PO (14:49)
[2017-01-17] MEDS ORDERED: ASCO10003 PO (14:49)
[2017-01-17] MEDS ORDERED: ATR25 PO (19:04)
[2017-01-17] MEDS ORDERED: TNR25 PO (19:04)
[2017-01-17] MEDS ORDERED: [UNRECOGNIZED DRUG - CODE] PO (19:06)
[2017-01-17] MEDS ORDERED: ATV1 PO (20:25)
[2017-01-19] MEDS ORDERED: TPRSR50 PO (11:54)
== END 2017-01-16 15:45 | disposition home or self-care (01) ==
LOC: C.EDB 12:39 → C.EDC 15:45
DX: S16.1XXA Strain of muscle, fascia and tendon at neck level, initial encounter (principal); X58.XXXA Exposure to other specified factors, initial encounter; I48.91 Unspecified atrial fibrillation; F10.920 Alcohol use, unspecified with intoxication, uncomplicated; R00.0 Tachycardia, unspecified; I10 Essential (primary) hypertension; F32.9 Major depressive disorder, single episode, unspecified; F41.9 Anxiety disorder, unspecified; G93.40 Encephalopathy, unspecified; F17.200 Nicotine dependence, unspecified, uncomplicated; Z98.890 Other specified postprocedural states; Z79.899 Other long term (current) drug therapy; Z88.8 Allergy status to other drugs, medicaments and biological substances; Z91.041 Radiographic dye allergy status; Z82.49 Family history of ischemic heart disease and other diseases of the circulatory system; Z80.6 Family history of leukemia

== ENCOUNTER 2017-01-17 18:05 | Inpatient (IN) | payer BC, OTHER ==
[~2017-01-17] VITALS: Ht 170.2 cm; Wt 73.0 kg
[~2017-01-17 18:05] MED LIST changes: +ASCO10003 PO; +BIOT1POW3 PO; -CYCL10TA6 PO; +FOLI1TAB7 PO; +LSX20 PO; +POTA550T4 PO; +THIA100T11 PO
[2017-01-17] MEDS ORDERED: METOPROLOL TARTRATE 1 MG/ML VIAL IV STA ×4 (18:28→20:00)
[2017-01-17] MEDS ORDERED: ASPIRIN 81 MG CHEW PO STA (18:28)
[2017-01-17 18:44] LABS: HEMATOCRIT 31.9 % (37-47); MEAN CELL VOLUME 92.5 fL (80-100); MEAN CORPUSCULAR HEMOGLOBIN 30.1 pg (25-34); MEAN CORPUSCULAR HGB CONC 32.6 g/dl (32-36); RED BLOOD COUNT 3.45 M/uL (4.2-5.4)
[2017-01-17 18:48] LABS: MEAN PLATELET VOLUME 9.7 fL (7.4-10.4); PLATELET COUNT 65 K/uL (130-400)
[2017-01-17 18:53] LABS: INR 1.2 (0.9-1.1); PARTIAL THROMBOPLASTIN RATIO 1.2; PROTHROMBIN TIME (PATIENT) 12.8 SECONDS (9.0-12.0)
--- NOTE | 2017-01-17 18:53 | DIAGNOSTIC IMAGING REPORT ---
CHEST ONE VIEW PORTABLE CLINICAL HISTORY: Evaluate for pneumonia. COMPARISON STUDY: Chest radiograph January 16, 2017. FINDINGS: Lung volumes are normal. No pneumothorax or pleural effusion is present. There is no consolidation to suggest pneumonia. Cardiomediastinal silhouette is normal. There is no evidence of pulmonary edema. IMPRESSION: No acute cardiopulmonary findings. Electronically signed by: Milan Camacho M.D. 01/17/2017 6:51 PM Dictated Date/Time: 01/17/2017 6:50 PM
[2017-01-17] MEDS ORDERED: ATR25 PO (19:04)
[2017-01-17] MEDS ORDERED: TNR25 PO (19:04)
[2017-01-17 19:06] LABS: BLOOD UREA NITROGEN 9 mg/dl (7-18); CARBON DIOXIDE 24 mmol/L (21-32); CHLORIDE 107 mmol/L (98-107); MAGNESIUM 1.9 mg/dl (1.8-2.4); POTASSIUM 3.5 mmol/L (3.5-5.1); SODIUM 138 mmol/L (136-145)
[2017-01-17] MEDS ORDERED: [UNRECOGNIZED DRUG - CODE] PO (19:06)
[2017-01-17 19:09] LABS: BASO % 0.3 %; BASO ABS # 0.02 K/uL (0-0.2); COMPLETE YES; EOS % 3.8 %; IG% 0.3 %; LYMPH % 17.2 %; LYMPH ABS # 1.17 K/uL (1.2-3.4); NEUT % 72.4 %; TEAR DROP CELLS 1+
[2017-01-17 19:11] LABS: ALT/SGPT 41 U/L (12-78); AST/SGOT 70 U/L (15-37); BUN/CREATININE RATIO 15.4 (10-20); CALCIUM 9.4 mg/dl (8.5-10.1); CREATININE 0.61 mg/dl (0.60-1.20); GLUCOSE 106 mg/dl (70-99)
[2017-01-17 19:23] LABS: ALKALINE PHOSPHATASE 309 U/L (45-117); CKMB/CK RATIO 3.3 (0-3.0)
[2017-01-17] MEDS ORDERED: ALUMINUM/MAGNESIUM/SIMETH (MAALOX MAX) 30 ML UDC PO PRN (20:00)
[2017-01-17] MEDS ORDERED: ONDANSETRON INJ 2 MG/ML 2 ML VIAL IV PRN (20:00)
[2017-01-17] MEDS ORDERED: ACETAMINOPHEN 325 MG TAB PO PRN (20:00)
[2017-01-17] MEDS ORDERED: hydrOXYzine HCL 25 MG TAB PO PRN (20:00)
[2017-01-17] MEDS ORDERED: MAGNESIUM HYDROXIDE SUSP 30 ML UDC PO PRN (20:00)
[2017-01-17] MEDS ORDERED: ATV1 PO (20:25)
[2017-01-17 20:30] VITALS: BP 151/94; PULSE 131; O2SAT 98; Ht 170.2 cm; Wt 73.0 kg
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
[2017-01-17 20:47] LABS: URINE APPEARANCE CLEAR (CLEAR); URINE BILIRUBIN NEG (NEG); URINE COLOR YELLOW; URINE NITRITE NEG (NEG); URINE SPECIFIC GRAVITY 1.009 (1.000-1.030); UROBILINOGEN NEG (NEG); ZZUR CULT IF INDIC CLEAN CATCH NO
[2017-01-17 20:50] LABS: MANUAL MICROSCOPIC REQUIRED? NO; REVIEW REQ? NO
[2017-01-17] MEDS ORDERED: CYCLOBENZAPRINE HCL 5 MG TAB PO ONE (21:00)
[2017-01-17] MEDS: LORAZEPAM 1 MG TAB PO PRN (21:02)
[2017-01-17] MEDS: SODIUM CHLORIDE 0.9% 1000ML 1,000 ML IV SCH (21:07)
[2017-01-17] MEDS ORDERED: LORAZEPAM INJ 1 MG in SYRINGE 0.5 ML IV ONE (21:15)
[2017-01-17] MEDS ORDERED: DILTIAZEM BOLUS / DRIP IV STA (21:28)
[2017-01-17] MEDS ORDERED: DILTIAZEM HCL 5 MG/ML 5 ML VIAL BOLUS/OMNI IV SCH (21:45)
[2017-01-17] MEDS ORDERED: DILTIAZEM HCL INJ 125 MG in DEXTROSE 5% 100ML IV PRN (21:45)
[2017-01-17] MEDS ORDERED: POTASSIUM CHLORIDE 10 MEQ TABCR PO STA (21:55)
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
[2017-01-17] MEDS ORDERED: INFLUENZA VIRUS QUAD VACCINE 0.5 ML SYR IM. ONE (23:00)
[2017-01-17] MEDS ORDERED: INFLUENZA ADMINISTRATION CHARGE ONE (23:00)
[2017-01-17 23:48] VITALS: BP 149/94; PULSE 125; TEMP 37.6; O2SAT 92
[2017-01-18 02:21] LABS: HEMATOCRIT 34.4 % (37-47); MEAN CELL VOLUME 93.2 fL (80-100); MEAN CORPUSCULAR HEMOGLOBIN 30.1 pg (25-34); MEAN CORPUSCULAR HGB CONC 32.3 g/dl (32-36); RED BLOOD COUNT 3.69 M/uL (4.2-5.4); WHITE BLOOD COUNT 7.28 K/uL (4.8-10.8)
[2017-01-18 02:22] LABS: MEAN PLATELET VOLUME 9.5 fL (7.4-10.4); PLATELET COUNT 64 K/uL (130-400)
[2017-01-18 02:40] LABS: ALT/SGPT 36 U/L (12-78); AST/SGOT 63 U/L (15-37); BLOOD UREA NITROGEN 10 mg/dl (7-18); BUN/CREATININE RATIO 13.6 (10-20); CALCIUM 8.6 mg/dl (8.5-10.1); CARBON DIOXIDE 25 mmol/L (21-32); CHLORIDE 107 mmol/L (98-107); CREATININE 0.71 mg/dl (0.60-1.20); GLUCOSE 93 mg/dl (70-99); MAGNESIUM 1.8 mg/dl (1.8-2.4); POTASSIUM 3.5 mmol/L (3.5-5.1); SODIUM 140 mmol/L (136-145)
[2017-01-18 02:56] LABS: ALB/GLOB RATIO 1.3 (0.9-2); ALKALINE PHOSPHATASE 260 U/L (45-117); CKMB/CK RATIO 2.6 (0-3.0)
[2017-01-18 03:47] VITALS: BP 135/89; PULSE 121; TEMP 37.2; O2SAT 93
[2017-01-18 07:36] VITALS: BP 148/75; PULSE 99; TEMP 37; O2SAT 94
[2017-01-18] MEDS ORDERED: METOPROLOL TARTRATE 1 MG/ML VIAL IV PRN (09:30)
--- NOTE | 2017-01-18 09:37 | ECHOCARDIOGRAM REPORT ---
*NOTICE TO RECEIVING DEMOCRAT AGENCY This information is strictly Confidential and protected under [place] law. [place] law prohibits you from making any further disclosure of this information unless further disclosure is expressly permitted by the written consent of the person to whom it pertains or is authorized by law. A general authorization for the release of medical or other information is not sufficient for this purpose. Hospital accepts no responsibility if the information is made available to any other person, INCLUDING THE PATIENT. Interpretation Summary * Name: CAMDEN LYNCH Study Date: 01/18/2017 06:41 AM BP: 135/89 mmHg * Patient Location: C.2T\S\S243\S\1 HR: 121 * : 1960 (M/d/yyyy) Gender: Female Height: 67 in * Age: 56 yrs Ethnicity: CA Weight: 162 lb * Ordering Physician: Barrington Van * Referring Physician: Self, Referred * Performed By: Em Doe RDCS * * Reason For Study: A-fib * BSA: 1.8 m2 * -- Conclusions -- * Normal LV chamber size and wall thickness. * Normal LV systolic function, EF 55-60%. * No segmental left ventricular wall motion abnormalities are noted. * Aortic valve sclerosis mild, without significant aortic valvular stenosis. * Mild mitral annular calcifications. Procedure Details * A complete two-dimensional transthoracic echocardiogram was performed (2D, M-mode, Doppler and color flow Doppler). Left Ventricle * The left ventricle is normal in size. * There is normal left ventricular wall thickness. * Ejection Fraction = 55-60%. * Left ventricular systolic function is normal. * No segmental left ventricular wall motion abnormalities are noted. * The left ventricular wall motion is normal. Right Ventricle * The right ventricular cavity size is normal (basal dimension <4.2 cm in right ventricular apical 4-chamber view). * The right ventricular systolic function is normal as assessed by tricuspid annular plane systolic excursion (TAPSE) (normal >1.5 cm). Atria * The left atrial size is normal. * Right atrial size is normal. * No ASD detected; PFO is not assessed. Mitral Valve * The mitral valve anatomy is normal. * There is mild mitral annular calcification. * There is no mitral valve stenosis. * There is no mitral regurgitation noted. Tricuspid Valve * The tricuspid valve is normal in structure and function. Aortic Valve * The aortic valve is trileaflet. * Aortic valve sclerosis mild, without significant aortic valvular stenosis. * There is no significant aortic regurgitation. Pulmonic Valve * The pulmonary valve is not well seen, but the Doppler examination is normal without significant regurgitation or stenosis. Great Vessels * The aortic root and proximal ascending aorta are normal sized. Pericardium/Pleural * There is no pericardial effusion. MMode 2D Measurements and Calculations IVSd 0.91 cm LVIDd 4.5 cm LVIDs 3.2 cm LVPWd 1.0 cm IVS/LVPW 0.88 FS 29.5 % EDV(Teich) 93.3 ml ESV(Teich) 40.4 ml EF(Teich) 56.7 % EDV(cubed) 92.2 ml ESV(cubed) 32.2 ml EF(cubed) 65.0 % LV mass(C)d 147.5 grams LV mass(C)dI 79.8 grams/m\S\2 SV(Teich) 52.9 ml SI(Teich) 28.6 ml/m\S\2 SV(cubed) 59.9 ml SI(cubed) 32.4 ml/m\S\2 Ao root diam 3.0 cm Ao root area 6.8 cm\S\2 ACS 1.8 cm LA dimension 3.2 cm asc Aorta Diam 3.6 cm LA/Ao 1.1 LVOT diam 2.0 cm LVOT area 3.0 cm\S\2 LVAd ap4 27.0 cm\S\2 LVLd ap4 7.2 cm EDV(MOD-sp4) 84.5 ml EDV(sp4-el) 85.6 ml LVAs ap4 15.3 cm\S\2 LVLs ap4 5.8 cm ESV(MOD-sp4) 34.2 ml ESV(sp4-el) 34.0 ml EF(MOD-sp4) 59.5 % EF(sp4-el) 60.2 % LVAd ap2 26.5 cm\S\2 LVLd ap2 7.9 cm EDV(MOD-sp2) 78.0 ml EDV(sp2-el) 75.7 ml LVAs ap2 16.3 cm\S\2 LVLs ap2 6.7 cm ESV(MOD-sp2) 34.7 ml ESV(sp2-el) 33.4 ml EF(MOD-sp2) 55.5 % EF(sp2-el) 55.9 % LVLd %diff 8.3 % EDV(MOD-bp) 84.4 ml LVLs %diff 13.9 % ESV(MOD-bp) 36.4 ml EF(MOD-bp) 56.9 % SV(MOD-sp4) 50.3 ml SI(MOD-sp4) 27.2 ml/m\S\2 SV(MOD-sp2) 43.3 ml SI(MOD-sp2) 23.4 ml/m\S\2 SV(MOD-bp) 48.1 ml SI(MOD-bp) 26.0 ml/m\S\2 SV(sp4-el) 51.6 ml SI(sp4-el) 27.9 ml/m\S\2 SV(sp2-el) 42.3 ml SI(sp2-el) 22.9 ml/m\S\2 Doppler Measurements and Calculations MV E max sajan 99.8 cm/sec MV dec time 0.15 sec Ao V2 max 155.3 cm/sec Ao max PG 9.7 mmHg Ao max PG (full) 5.4 mmHg ALEXANDRU(V,A) 2.0 cm\S\2 ALEXANDRU(V,D) 2.0 cm\S\2 LV V1 max PG 4.3 mmHg LV V1 max 103.4 cm/sec PA V2 max 107.2 cm/sec PA max PG 4.6 mmHg PA acc slope 680.2 cm/sec\S\2 PA acc time 0.11 sec PI end-d sajan 156.1 cm/sec TR max sajan 224.7 cm/sec PA pr(Accel) 28.3 mmHg
[2017-01-18] MEDS: ASCORBIC ACID 500 MG TAB PO SCH (09:54)
[2017-01-18] MEDS: SODIUM CHLORIDE 0.9% 1000ML 1,000 ML IV SCH ×2 (09:54→20:46)
[2017-01-18] MEDS: THIAMINE HCL 100 MG TAB PO SCH (09:55)
[2017-01-18] MEDS: NICOTINE 14 MG/24 HR TDSY TD SCH (09:55)
[2017-01-18] MEDS: LORAZEPAM 1 MG TAB PO PRN ×3 (10:00→23:59)
[2017-01-18] MEDS ORDERED: METOPROLOL SUCC 50MG EXT REL TAB PO ONE (10:02)
[2017-01-18] MEDS ORDERED: POTASSIUM CHLORIDE 20 MEQ TABCR PO ONE (10:30)
[2017-01-18 12:03] VITALS: BP 146/94; PULSE 119; TEMP 37; O2SAT 96
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
[2017-01-18 15:43] VITALS: BP 116/63; PULSE 113; TEMP 37.6; O2SAT 97
[2017-01-18] MEDS ORDERED: NURSING VERBAL MED ORDER ONE (16:30)
--- NOTE | 2017-01-18 18:22 | Progress Note ---
Medicine Progress Note Date & Time of Visit: Jan 18, 2017 at 10:02. Subjective Pt was seen and examined Lying in bed with no distress Pt said that she feels fine she would like to leave today she denies any chest pain, palpitation, dizziness and SOB Objective Last 8 Hrs Date Time Temp Pulse Resp B/P (MAP) Pulse Ox O2 Delivery O2 Flow Rate FiO2 01/18/17 16:33 113 116/63 01/18/17 16:00 Room Air 01/18/17 15:43 37.6 113 20 116/63 (80) 97 Room Air 01/18/17 12:03 37.0 119 18 146/94 (111) 96 Room Air 01/18/17 12:00 Room Air Physical Exam: General- No acute distress Head- atraumatic Eyes- PERRL, EOMI ENT- oropharynx clear Neck- supple, no JVD Lungs- clear to auscultation Heart- tachycardia Abdomen- normal bowel sounds, soft Extremities- no pretibial edema, no calf tenderness Neuro- alert, oriented x 3; PERRL, EOMI; no facial palsy Skin- warm & dry Laboratory Results: Last 24 Hours Test 01/17/17 18:20 01/17/17 20:25 01/18/17 02:03 01/18/17 02:04 White Blood Count 6.80 K/uL 7.28 K/uL Red Blood Count 3.45 M/uL 3.69 M/uL Hemoglobin 10.4 g/dL 11.1 g/dL Hematocrit 31.9 % 34.4 % Mean Corpuscular Volume 92.5 fL 93.2 fL Mean Corpuscular Hemoglobin 30.1 pg 30.1 pg Mean Corpuscular Hemoglobin Concent 32.6 g/dl 32.3 g/dl Platelet Count 65 K/uL 64 K/uL Mean Platelet Volume 9.7 fL 9.5 fL Neutrophils (%) (Auto) 72.4 % Lymphocytes (%) (Auto) 17.2 % Monocytes (%) (Auto) 6.0 % Eosinophils (%) (Auto) 3.8 % Basophils (%) (Auto) 0.3 % Neutrophils # (Auto) 4.92 K/uL Lymphocytes # (Auto) 1.17 K/uL Monocytes # (Auto) 0.41 K/uL Eosinophils # (Auto) 0.26 K/uL Basophils # (Auto) 0.02 K/uL RDW Standard Deviation 53.8 fL 54.0 fL RDW Coefficient of Variation 16.0 % 16.1 % Immature Granulocyte % (Auto) 0.3 % Immature Granulocyte # (Auto) 0.02 K/uL Tear Drop Cells 1+ Prothrombin Time 12.8 SECONDS Prothromb Time International Ratio 1.2 Activated Partial Thromboplast Time 30.1 SECONDS Partial Thromboplastin Ratio 1.2 Sodium Level 138 mmol/L 140 mmol/L Potassium Level 3.5 mmol/L 3.5 mmol/L Chloride Level 107 mmol/L 107 mmol/L Carbon Dioxide Level 24 mmol/L 25 mmol/L Anion Gap 8.0 mmol/L 8.0 mmol/L Blood Urea Nitrogen 9 mg/dl 10 mg/dl Creatinine 0.61 mg/dl 0.71 mg/dl Est Creatinine Clear Calc Drug Dose 101.4 ml/min 87.1 ml/min Estimated GFR () 118.3 111.1 Estimated GFR (Non- 102.1 95.9 BUN/Creatinine Ratio 15.4 13.6 Random Glucose 106 mg/dl 93 mg/dl Calcium Level 9.4 mg/dl 8.6 mg/dl Magnesium Level 1.9 mg/dl 1.8 mg/dl Total Bilirubin 2.3 mg/dl 3.2 mg/dl Direct Bilirubin 1.4 mg/dl Aspartate Amino Transf (AST/SGOT) 70 U/L 63 U/L Alanine Aminotransferase (ALT/SGPT) 41 U/L 36 U/L Alkaline Phosphatase 309 U/L 260 U/L Total Creatine Kinase 130 U/L 93 U/L Creatine Kinase MB 4.3 ng/ml 2.4 ng/ml Creatine Kinase MB Ratio 3.3 2.6 Troponin I < 0.015 ng/ml < 0.015 ng/ml Total Protein 6.8 gm/dl 6.1 gm/dl Albumin 4.0 gm/dl 3.5 gm/dl Thyroid Stimulating Hormone (TSH) 1.120 uIu/ml Free Thyroxine 1.01 ng/dl Urine Color YELLOW Urine Appearance CLEAR Urine pH 8.0 Urine Specific [place] 1.009 Urine Protein NEG Urine Glucose (UA) NEG Urine Ketones NEG Urine Occult Blood NEG Urine Nitrite NEG Urine Bilirubin NEG Urine Urobilinogen NEG Urine Leukocyte Esterase NEG Globulin 2.6 gm/dl Albumin/Globulin Ratio 1.3 Test 01/18/17 10:00 Total Creatine Kinase 73 U/L Creatine Kinase MB 2.2 ng/ml Creatine Kinase MB Ratio 3.0 Troponin I < 0.015 ng/ml Assessment & Plan P. AFib with RVR patient has been alternating between sinus tachycardia and atrial fibrillation with RVR Received a total IV lopressor 10mg yesterday Cardizem drip D/C On Sinus tachycardia now cardiology on board Started on metoprolol 50mg daily Not a candidate for anticoagulant due to recurrent epistaxis, alcohol abuse and thrombocytopenia Continue monitor in tele ECHO showed * Normal LV chamber size and wall thickness. * Normal LV systolic function, EF 55-60%. * No segmental left ventricular wall motion abnormalities are noted. * Aortic valve sclerosis mild, without significant aortic valvular stenosis. * Mild mitral annular calcifications. Alcoholic abuse Drink daily Continue Ativan 1 mg TID prn for anxiety Continue monitor for signs of alcohol withdrawn Planning to start with an alcohol program Counseling on alcohol cessation cont. folic acid, thiamine Alcoholic Liver disease Monitor LFTs Avoid hepatotoxic agents Chronic Thrombocytopenia Due to alcohol abuse Platelets 64 No active bleeding Monitor CBC Anxiety/Depression continue current medications No suicidal thought Stable Ongoing Tobacco Use nicotine patch counseled on smoking cessation DVT ppx SCDs FULL CODE Current Inpatient Medications: Current Inpatient Medications Medications (Trade) Dose Ordered Sig/Britany Route Start Time Stop Time Status Last Admin Dose Admin Sodium Chloride 1,000 ml @ 80 mls/hr [id number] IV 01/17/17 21:00 02/16/17 20:59 01/18/17 09:54 80 MLS/HR Acetaminophen (Tylenol Tab) 650 mg Q4H PRN PO 01/17/17 20:00 02/16/17 19:59 Al Hydrox/Mg Hydrox/Simethicone (Maalox Max Susp) 15 ml Q4H PRN PO 01/17/17 20:00 02/16/17 19:59 Magnesium Hydroxide (Milk Of Magnesia Susp) 30 ml Q12H PRN PO 01/17/17 20:00 02/16/17 19:59 Ondansetron HCl (Zofran Inj) 4 mg Q6H PRN IV 01/17/17 20:00 02/16/17 19:59 Folic Acid (Folvite Tab) 1 mg DAILY PO 01/18/17 09:00 02/17/17 08:59 01/18/17 09:54 1 MG Hydroxyzine HCl (Vistaril Tab) 25 mg Q6H PRN PO 01/17/17 20:00 02/16/17 19:59 Lorazepam (Ativan Tab) 1 mg TID PRN PO 01/17/17 20:00 02/16/17 19:59 01/18/17 15:47 1 MG Thiamine HCl (Vitamin B-1 Tab) 100 mg DAILY PO 01/18/17 09:00 02/17/17 08:59 01/18/17 09:55 100 MG Ascorbic Acid (Vitamin C Tab) 1,000 mg DAILY PO 01/18/17 09:00 02/17/17 08:59 01/18/17 09:54 1,000 MG Nicotine (Nicoderm Cq 14MG Patch) 1 patch QAM TD 01/18/17 09:00 02/17/17 08:59 01/18/17 09:55 1 PATCH Miscellaneous (Remove Nicoderm Patch) 1 ea HS N/A 01/18/17 21:00 02/17/17 20:59 Metoprolol Tartrate (Lopressor Iv) 2.5 mg Q4 PRN IV 01/18/17 09:30 02/17/17 09:29 01/18/17 16:33 2.5 MG Metoprolol Succinate (Toprol Xl Tab) 50 mg QAM PO 01/19/17 09:00 02/18/17 08:59
[2017-01-18 19:43] VITALS: BP 119/76; PULSE 99; TEMP 37.2; O2SAT 98
[2017-01-19 00:01] VITALS: BP 121/79; PULSE 92; TEMP 36.7; O2SAT 94
[2017-01-19 04:20] VITALS: BP 110/73; PULSE 98; TEMP 37; O2SAT 98
[2017-01-19 05:56] LABS: HEMATOCRIT 34.4 % (37-47); MEAN CELL VOLUME 93.5 fL (80-100); MEAN CORPUSCULAR HEMOGLOBIN 30.4 pg (25-34); MEAN CORPUSCULAR HGB CONC 32.6 g/dl (32-36); RED BLOOD COUNT 3.68 M/uL (4.2-5.4); WHITE BLOOD COUNT 6.89 K/uL (4.8-10.8)
[2017-01-19 05:57] LABS: MEAN PLATELET VOLUME 11.4 fL (7.4-10.4); PLATELET COUNT 76 K/uL (130-400)
[2017-01-19 06:34] LABS: BUN/CREATININE RATIO 16.3 (10-20); CALCIUM 8.5 mg/dl (8.5-10.1); CREATININE 0.78 mg/dl (0.60-1.20); POTASSIUM 3.9 mmol/L (3.5-5.1)
[2017-01-19 06:38] LABS: ALB/GLOB RATIO 1.2 (0.9-2)
[2017-01-19 07:15] VITALS: BP 113/70; PULSE 111; TEMP 37; O2SAT 96
[2017-01-19] MEDS: THIAMINE HCL 100 MG TAB PO SCH (07:46)
[2017-01-19] MEDS: ASCORBIC ACID 500 MG TAB PO SCH (07:46)
[2017-01-19] MEDS: NICOTINE 14 MG/24 HR TDSY TD SCH (07:46)
[2017-01-19] MEDS: LORAZEPAM 1 MG TAB PO PRN (07:50)
[2017-01-19] MEDS ORDERED: METOPROLOL SUCC 50MG EXT REL TAB PO SCH (09:00)
[2017-01-19] MEDS: SODIUM CHLORIDE 0.9% 1000ML 1,000 ML IV SCH (11:19)
--- NOTE | 2017-01-19 11:53 | Progress Note ---
Medicine Progress Note Date & Time of Visit: Jan 19, 2017 at 11:42. Subjective Pt was seen and examined Lying in bed with no distress Pt said that she feels fine She said that slept fine last night Denies any chest pain, palpitation, hallucination and sob Objective Last 8 Hrs Date Time Temp Pulse Resp B/P (MAP) Pulse Ox O2 Delivery O2 Flow Rate FiO2 01/19/17 08:00 Room Air 01/19/17 07:15 37.0 111 20 113/70 (84) 96 Room Air 01/19/17 04:20 37.0 98 20 110/73 (85) 98 Room Air 01/19/17 04:00 Room Air Physical Exam: General- No acute distress Head- atraumatic Eyes- PERRL, EOMI ENT- oropharynx clear Neck- supple, no JVD Lungs- clear to auscultation Heart- regular Abdomen- normal bowel sounds, soft Extremities- no pretibial edema, no calf tenderness Neuro- alert, oriented x 3; PERRL, EOMI; no facial palsy Skin- warm & dry Laboratory Results: Last 24 Hours Test 01/19/17 05:19 White Blood Count 6.89 K/uL Red Blood Count 3.68 M/uL Hemoglobin 11.2 g/dL Hematocrit 34.4 % Mean Corpuscular Volume 93.5 fL Mean Corpuscular Hemoglobin 30.4 pg Mean Corpuscular Hemoglobin Concent 32.6 g/dl RDW Standard Deviation 54.5 fL RDW Coefficient of Variation 16.1 % Platelet Count 76 K/uL Mean Platelet Volume 11.4 fL Sodium Level 139 mmol/L Potassium Level 3.9 mmol/L Chloride Level 107 mmol/L Carbon Dioxide Level 22 mmol/L Anion Gap 10.0 mmol/L Blood Urea Nitrogen 13 mg/dl Creatinine 0.78 mg/dl Est Creatinine Clear Calc Drug Dose 79.3 ml/min Estimated GFR () 99.2 Estimated GFR (Non- 85.6 BUN/Creatinine Ratio 16.3 Random Glucose 91 mg/dl Calcium Level 8.5 mg/dl Total Bilirubin 3.1 mg/dl Aspartate Amino Transf (AST/SGOT) 48 U/L Alanine Aminotransferase (ALT/SGPT) 31 U/L Alkaline Phosphatase 210 U/L Total Protein 5.8 gm/dl Albumin 3.2 gm/dl Globulin 2.6 gm/dl Albumin/Globulin Ratio 1.2 Assessment & Plan P. AFib with RVR patient has been alternating between sinus tachycardia and atrial fibrillation with RVR Received a total IV lopressor 10mg yesterday Cardizem drip D/C On Sinus tachycardia now cardiology on board Started on metoprolol 50mg daily Not a candidate for anticoagulant due to recurrent epistaxis, alcohol abuse and thrombocytopenia Continue monitor in tele 01/19 On Sinus rhythm Rate control Continue metoprolol 50mg daily Not a good candidate for anticoagulant due to recurrent epistaxis, alcohol abuse and thrombocytopenia Pt understands the risk for not on anticoagulant such as stroke or emboli events and . ECHO showed * Normal LV chamber size and wall thickness. * Normal LV systolic function, EF 55-60%. * No segmental left ventricular wall motion abnormalities are noted. * Aortic valve sclerosis mild, without significant aortic valvular stenosis. * Mild mitral annular calcifications. Alcoholic abuse Drink daily Continue Ativan 1 mg TID prn for anxiety Continue monitor for signs of alcohol withdrawn Planning to start with an alcohol program Counseling on alcohol cessation cont. folic acid, thiamine Alcoholic Liver disease Monitor LFTs Avoid hepatotoxic agents Chronic Thrombocytopenia Due to alcohol abuse Platelets 76 No active bleeding Monitor CBC Anxiety/Depression continue current medications No suicidal thought Advised pt not to take Ativan while continue drinking alcohol Recommend to start on SSRI ( will defer to PCP) Stable Ongoing Tobacco Use nicotine patch counseled on smoking cessation DVT ppx SCDs FULL CODE Disposition Discharge home today Follow up with PCP DR. Sarmiento on 01/23 @ 1:45 pm Consultants: cardiology Current Inpatient Medications: Current Inpatient Medications Medications (Trade) Dose Ordered Sig/Britany Route Start Time Stop Time Status Last Admin Dose Admin Sodium Chloride 1,000 ml @ 80 mls/hr [id number] IV 01/17/17 21:00 02/16/17 20:59 01/18/17 20:46 80 MLS/HR Acetaminophen (Tylenol Tab) 650 mg Q4H PRN PO 01/17/17 20:00 02/16/17 19:59 Al Hydrox/Mg Hydrox/Simethicone (Maalox Max Susp) 15 ml Q4H PRN PO 01/17/17 20:00 02/16/17 19:59 Magnesium Hydroxide (Milk Of Magnesia Susp) 30 ml Q12H PRN PO 01/17/17 20:00 02/16/17 19:59 Ondansetron HCl (Zofran Inj) 4 mg Q6H PRN IV 01/17/17 20:00 02/16/17 19:59 Folic Acid (Folvite Tab) 1 mg DAILY PO 01/18/17 09:00 02/17/17 08:59 01/19/17 07:46 1 MG Hydroxyzine HCl (Vistaril Tab) 25 mg Q6H PRN PO 01/17/17 20:00 02/16/17 19:59 Lorazepam (Ativan Tab) 1 mg TID PRN PO 01/17/17 20:00 02/16/17 19:59 01/19/17 07:50 1 MG Thiamine HCl (Vitamin B-1 Tab) 100 mg DAILY PO 01/18/17 09:00 02/17/17 08:59 01/19/17 07:46 100 MG Ascorbic Acid (Vitamin C Tab) 1,000 mg DAILY PO 01/18/17 09:00 02/17/17 08:59 01/19/17 07:46 1,000 MG Nicotine (Nicoderm Cq 14MG Patch) 1 patch QAM TD 01/18/17 09:00 02/17/17 08:59 01/19/17 07:46 1 PATCH Miscellaneous (Remove Nicoderm Patch) 1 ea HS N/A 01/18/17 21:00 02/17/17 20:59 01/18/17 20:46 1 EA Metoprolol Tartrate (Lopressor Iv) 2.5 mg Q4 PRN IV 01/18/17 09:30 02/17/17 09:29 01/18/17 16:33 2.5 MG Metoprolol Succinate (Toprol Xl Tab) 50 mg QAM PO 01/19/17 09:00 02/18/17 08:59 01/19/17 07:46 50 MG
[2017-01-19] MEDS ORDERED: TPRSR50 PO (11:54)
[2017-01-19 11:56] VITALS: BP 105/67; PULSE 112; TEMP 37.1; O2SAT 97
--- NOTE | 2017-01-19 12:04 | Discharge Instructions ---
Discharge Instructions Date of Service Jan 19, 2017. Admission Reason for Admission: New Onset A-Fib,Tachycardia Discharge Discharge Diagnosis / Problem: Paroxysmal Atrial Fibrillation/Alcohol abuse/ Thrombocytopenia/Tobacco abuse Discharge Goals Goal(s): Decrease discomfort, Improve function, Improve disease control Activity Recommendations Activity Limitations: resume your previous activity (As tolerated) . Instructions / Follow-Up Instructions / Follow-Up Follow up appointment with your primary care provider Dr. Sarmiento on 01/23 @ 1 :45 PM Counseling on alcohol cessation Counseling on smoking cessation Fall precaution Do not take Ativan while continue drinking alcohol Current Hospital Diet Patient's current hospital diet: Low Sodium Diet (2gm Na) Discharge Diet Recommended Diet: AHA Diet (Heart Healthy), Low Sodium Diet (2gm Na) Pending Studies Studies pending at discharge: no Medical Emergencies . Who to Call and When: Medical Emergencies: If at any time you feel your situation is an emergency, please call 911 immediately. . Non-Emergent Contact Non-Emergency issues call your: Primary Care Provider Call Non-Emergent contact if: you have any medication questions . . "Provider Documentation" section prepared by Eric Latham. . VTE Core Measure Inpt VTE Proph given/why not?: SCD's
[2017-01-19 12:35] VITALS: BP 105/67; PULSE 112; TEMP 37.1; O2SAT 97
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
== END 2017-01-19 13:06 | disposition home or self-care (01) | DRG 310 ==
LOC: C.EDB 18:06 → C.2T 20:00 → ENRESERV 20:10
PROVIDERS: ADMIT Family Medicine; ATTEND Internal Medicine
DX: I48.0 Paroxysmal atrial fibrillation (principal); F10.10 Alcohol abuse, uncomplicated; I10 Essential (primary) hypertension; F41.8 Other specified anxiety disorders; F17.210 Nicotine dependence, cigarettes, uncomplicated; K70.30 Alcoholic cirrhosis of liver without ascites; D69.6 Thrombocytopenia, unspecified

== ENCOUNTER 2017-04-10 18:49 | Emergency (ER) | payer BC ==
[~2017-04-10] VITALS: Ht 170.2 cm; Wt 74.9 kg
[~2017-04-10 18:49] MED LIST changes: -ATEN-173 PO; +ATR25 PO; +ATV1 PO; -BIOT1POW3 PO; -FOLI1TAB7 PO; +FOLI1TAB8 PO; -HYDR-3124 PO; +TPRSR50 PO; +[UNRECOGNIZED DRUG - CODE] PO
[2017-04-10 18:53] VITALS: TEMP 37; Ht 170.2 cm; Wt 74.9 kg
[2017-04-10] MEDS ORDERED: TPRSR/50 PO (19:21)
[2017-04-10] MEDS ORDERED: LIDO4CRE10 TD (19:24)
[2017-04-10] MEDS ORDERED: LIDO4CRE10 (19:26)
[2017-04-10 19:37] LABS: MEAN CORPUSCULAR HGB CONC 33.1 g/dl (32-36)
[2017-04-10 19:47] LABS: INR 1.2 (0.9-1.1); PTT PATIENT 28.5 SECONDS (21.0-31.0)
[2017-04-10 19:55] LABS: ALBUMIN 3.8 gm/dl (3.4-5.0); CALCIUM 9.5 mg/dl (8.5-10.1); CREATININE 0.77 mg/dl (0.60-1.20); POTASSIUM 3.8 mmol/L (3.5-5.1)
[2017-04-10 19:58] LABS: TOTAL PROTEIN 7.3 gm/dl (6.4-8.2)
[2017-04-10 20:08] LABS: BASO % 0.6 %; BASO ABS # 0.05 K/uL (0-0.2); EOS % 8.5 %; EOS ABS # 0.72 K/uL (0-0.5); HEMATOCRIT 38.7 % (37-47); HEMOGLOBIN 13.1 g/dL (12.0-16.0); IG# 0.03 K/uL (0.00-0.02); LYMPH % 25.6 %; LYMPH ABS # 2.16 K/uL (1.2-3.4); MEAN CELL VOLUME 91.5 fL (80-100); MEAN PLATELET VOLUME 10.6 fL (7.4-10.4); MONO % 6.3 %; MONO ABS # 0.53 K/uL (0.11-0.59); NEUT % 58.6 %; NEUT ABS # 4.96 K/uL (1.4-6.5); PLATELET COUNT 83 K/uL (130-400); RED CELL DISTRIBUTION WIDTH CV 16.6 % (11.5-14.5); WHITE BLOOD COUNT 8.45 K/uL (4.8-10.8)
--- NOTE | 2017-04-10 21:22 | EMERGENCY ROOM VISIT NOTE ---
History Report prepared by Ashley: Layo Ochoa Under the Supervision of: Dr. Ramón Aaron M.D. First contact with patient: 18:59 Chief Complaint: DETOX REQUEST Stated Complaint: ALCOHOL REHAB- [facility] REFERRED History of Present Illness The patient is a 57 year old female who presents to the Emergency Room with a request for admission for alcohol detox. She was told by her PCP (Dr. Sarmiento ) that she should be admitted to the [facility] to then be transferred to a rehab facility, as this is the fastest way for this to happen. She does not currently feel like she is in alcohol withdrawal. She has no history of withdrawal seizures. She did have seizure disorder when she was young but her last seizure was when she was 21. The patient denies fevers, or vomiting. She notes that she has blood in her tissue with blowing her nose, but that this is chronic for her. She states that she can currently feel an anxiety attack coming on. She does take Ativan 3 times a day for her anxiety. The patient has a history of paroxysmal A-fib. She is not on any blood thinners due to a history of slow blood clotting. She also has a history of liver disease secondary to alcohol abuse. Source of History: patient Quality: other (request for alcohol detox) Associated Symptoms: No fevers, No vomiting Review of Systems See HPI for pertinent positives & negatives. A total of 10 systems reviewed and were otherwise negative. Past Medical & Surgical Medical Problems: (1) Alcohol abuse (2) Alcohol intoxication (3) Anxiety State Nos (4) Depression (5) Encephalopathy (6) HTN (hypertension) (7) Hypertension Nos (8) New onset a-fib (9) Sepsis (10) Tachycardia (11) Tobacco abuse (12) Tobacco Use Disorder Surgical Problems: (1) H/O colonoscopy (2) History of esophagogastroduodenoscopy (EGD) (3) Hx of tonsillectomy (4) S/P section Family History FH: leukemia Hypertension Social History Smoking Status: Current Every Day Smoker Alcohol Use: heavy Marital Status: single Housing Status: lives with family Occupation Status: employed Current/Historical Medications Scheduled Ascorbic Acid (Vitamin C), 1,000 MG PO DAILY Biotin (Biotin Gummies), 1,000 MCG PO DAILY Folic Acid (Folvite), 1 MG PO BID Metoprolol Succinate (Metoprolol Succinate ER), 50 MG PO QAM Potassium Gluconate (Potassium Gluconate), 1 TAB PO DAILY Thiamine Hcl (Vitamin B-1), 100 MG PO DAILY Scheduled PRN Hydroxyzine HCl (Hydroxyzine HCl), 25 MG PO Q6H PRN for Itching Lidocaine (Anorectal) (Lidocaine), 1 APPLN TD TID PRN for Pain Lorazepam (Lorazepam), 1 MG PO TID PRN for Anxiety Allergies Coded Allergies: Iodinated Diagnostic Agents (Verified Allergy, Unknown, ., 01/16/17) Gabapentin (Verified Adverse Reaction, Intermediate, MOOD CHANGES, ) Physical Exam Vital Signs Date Time Temp Pulse Resp B/P (MAP) Pulse Ox O2 Delivery O2 Flow Rate FiO2 04/10/17 20:31 75 20 135/78 98 Room Air 04/10/17 19:37 75 04/10/17 18:53 37.0 76 18 144/79 97 Room Air Physical Exam Constitutional: Vital signs reviewed. Eyes: Pupils are equal round reactive to light. Conjunctiva are noninjected. ENT: Pharynx is clear without erythema or exudate. Mucous membranes are moist. Neck supple without meningeal signs. Respiratory: Clear to auscultation bilaterally. Breath sounds are equal bilaterally. Cardiovascular: Regular rate and rhythm. No rubs or gallops. GI: Soft, nondistended and nontender. Bowel sounds are present. Musculoskeletal: No peripheral edema. Integumentary: No cyanosis. Neurological: The patient is awake and alert. No focal deficits. Psychiatric: Slightly anxious appearing. Medical Decision & Procedures Laboratory Results 04/10/17 19:25 Red Blood Count 4.23, Mean Corpuscular Volume 91.5, Mean Corpuscular Hemoglobin 31.0, Mean Corpuscular Hemoglobin Concent 33.1, Mean Platelet Volume 10.6, Neutrophils (%) (Auto) 58.6, Lymphocytes (%) (Auto) 25.6, Monocytes (%) (Auto) 6.3, Eosinophils (%) (Auto) 8.5, Basophils (%) (Auto) 0.6, Neutrophils # (Auto) 4.96, Lymphocytes # (Auto) 2.16, Monocytes # (Auto) 0.53, Eosinophils # (Auto) 0.72, Basophils # (Auto) 0.05 04/10/17 19:25 Test 2/13/18 19:25 White Blood Count 8.45 K/uL (4.8-10.8) Red Blood Count 4.23 M/uL (4.2-5.4) Hemoglobin 13.1 g/dL (12.0-16.0) Hematocrit 38.7 % (37-47) Mean Corpuscular Volume 91.5 fL (80-100) Mean Corpuscular Hemoglobin 31.0 pg (25-34) Mean Corpuscular Hemoglobin Concent 33.1 g/dl (32-36) Platelet Count 83 K/uL (130-400) Mean Platelet Volume 10.6 fL (7.4-10.4) Neutrophils (%) (Auto) 58.6 % Lymphocytes (%) (Auto) 25.6 % Monocytes (%) (Auto) 6.3 % Eosinophils (%) (Auto) 8.5 % Basophils (%) (Auto) 0.6 % Neutrophils # (Auto) 4.96 K/uL (1.4-6.5) Lymphocytes # (Auto) 2.16 K/uL (1.2-3.4) Monocytes # (Auto) 0.53 K/uL (0.11-0.59) Eosinophils # (Auto) 0.72 K/uL (0-0.5) Basophils # (Auto) 0.05 K/uL (0-0.2) RDW Standard Deviation 55.0 fL (36.4-46.3) RDW Coefficient of Variation 16.6 % (11.5-14.5) Immature Granulocyte % (Auto) 0.4 % Immature Granulocyte # (Auto) 0.03 K/uL (0.00-0.02) Platelet Estimate DECREASED Ovalocytes 1+ Prothrombin Time 12.5 SECONDS (9.0-12.0) Prothromb Time International Ratio 1.2 (0.9-1.1) Activated Partial Thromboplast Time 28.5 SECONDS (21.0-31.0) Partial Thromboplastin Ratio 1.1 Anion Gap 9.0 mmol/L (3-11) Est Creatinine Clear Calc Drug Dose 86.2 ml/min Estimated GFR () 100.0 Estimated GFR (Non- 86.3 BUN/Creatinine Ratio 18.0 (10-20) Calcium Level 9.5 mg/dl (8.5-10.1) Total Bilirubin 3.1 mg/dl (0.2-1) Direct Bilirubin 1.6 mg/dl (0-0.2) Aspartate Amino Transf (AST/SGOT) 61 U/L (15-37) Alanine Aminotransferase (ALT/SGPT) 34 U/L (12-78) Alkaline Phosphatase 324 U/L (45-117) Total Protein 7.3 gm/dl (6.4-8.2) Albumin 3.8 gm/dl (3.4-5.0) Lipase 413 U/L (73-393) Ethyl Alcohol mg/dL 142.0 mg/dl (0-3) Laboratory results as reviewed by me. ECG Indication: other (History of A-fib) Rate (beats per minute): 75 Rhythm: normal sinus Findings: no ectopy, other ([place] is 32. Baseline artifact limiting interpretation) ED Course 1900: The patient was evaluated in room A4B. A complete history and physical exam was performed. 1908: I spoke with the nurse case manager. She reviewed notes from [facility], and noted that Dr. Sarmiento sent the patient to the ED for potential help with rehab placement, and not necessarily for admission to the hospital. 2049: Upon reevaluation, the patient is resting. I spoke with her as well as the nurse case manager. The patient has no history of withdrawal seizures. I explained to the patient that we don't admit patients for alcohol rehab placement. The patient currently has no signs of alcohol withdrawal. She is on Ativan three times per day. The patient verbalized agreement of the treatment plan. She was discharged home for outpatient rehab admission. Medical Decision This is a 57-year-old female who is requesting to be admitted for alcohol detoxification. I did perform a limited focused review of portions of the patient's old chart on the electronic medical record. The patient was admitted in December 2016 for paroxysmal A-fib. She was placed on Metoprolol. She has a history of alcoholic liver disease with thrombocytopenia. I did evaluate the patient as noted above. IV access was established. The patient was placed on a continuous cardiac cath tech. I did order and personally review the patient's 12-lead EKG as described above. I did order and review the patient's blood work as noted in the electronic medical record. She does have chronic thrombocytopenia. She does have some mild elevation of her lipase. I did discuss the case with the nurse case manager as well as the mental health nurse case manager. The patient has no withdrawal symptoms. There is no medical indication to admit her to the hospital. Her serum alcohol is 149. She states she was sent here to be admitted so that she would be able to be transferred to rehab. The nurse case manager informed me that that is not the case. We did explain this to the patient. The nurse case manager also attempted to call some local rehab facilities as well as one in [place] but they were unable to accept her at this time. She was therefore discharged and will continue her efforts to get into a rehab program. She was advised to also follow with her doctor. Medication Reconcilliation Current Medication List: was personally reviewed by me Blood Pressure Screening Patient's blood pressure: Elevated blood pressure Blood pressure disposition: Referred to PCP Impression Primary Impression: Alcohol dependence Additional Impression: Thrombocytopenia Scribe Attestation The scribe's documentation has been prepared under my direct and personally reviewed by me in its entirety. I confirm that the note above accurately reflects all work, treatment, procedures, and medical decision making performed by me. Departure Information Dispostion Home / Self-Care Referrals Kai Sarmiento D.O. (PCP) Forms HOME CARE DOCUMENTATION FORM, IMPORTANT VISIT INFORMATION, WORK / SCHOOL INSTRUCTIONS Patient Instructions My [facility] Additional Instructions You have been examined and treated today on an emergency basis only. This is not a substitute for, or an effort to provide, complete comprehensive medical care. It is impossible to recognize and treat all injuries or illnesses in a single emergency department visit. It is therefore important that you follow up closely with your physician. Call as soon as possible for an appointment. Return for worsening symptoms or if you develop fever, vomiting, confusion, palpitations or any other concerning symptoms. Problem Qualifiers Primary Impression: Alcohol dependence Substance use status: unspecified alcohol-induced disorder Qualified Codes: F10.29 - Alcohol dependence with unspecified alcohol-induced disorder
[2017-04-10 21:25] VITALS: BP 136/70; PULSE 88; O2SAT 98
== END 2017-04-10 21:25 | disposition home or self-care (01) ==
LOC: C.EDB 18:52 → C.EDA 21:25
DX: F10.20 Alcohol dependence, uncomplicated (principal); D69.6 Thrombocytopenia, unspecified; Y90.6 Blood alcohol level of 120-199 mg/100 ml; F41.9 Anxiety disorder, unspecified; I48.91 Unspecified atrial fibrillation; F17.210 Nicotine dependence, cigarettes, uncomplicated; K70.9 Alcoholic liver disease, unspecified; F32.9 Major depressive disorder, single episode, unspecified; I10 Essential (primary) hypertension; Z79.899 Other long term (current) drug therapy; Z82.49 Family history of ischemic heart disease and other diseases of the circulatory system; Z80.6 Family history of leukemia